=== PATIENT | female | born 1970 | race Caucasian/White ===

== ENCOUNTER 2025-02-18 16:45 | Emergency (ER) | payer SELFPAY ==
--- OUTSIDE RECORDS SUMMARY | 2014-02-14 12:09 | XMS_ITS | Continuity of Care Document ---
Author Organization [employer] [facility] [employer] Address [address] [place] [address] Phone Care Team Providers Care Instrumentation And Controls Technician Name Role Phone Anh Heredia Unavailable Unavailabl e Medications Medication Instructions Dosage Effective Dates (start - stop) Status Comments Claritin 10 mg tablet take 1 tablet (10M G) by oral route every day 10 MG - Active Prozac 40 mg capsule take 1 capsule (40M G) by oral route every day in the morning - Active [place] 5 mg-325 mg tablet take 1 tablet by oral route every 6 hours as needed for pain - Active Prozac 20 mg capsule take 1 capsule (20M G) by oral route every day in the morning 20 MG - Active Procedures Procedure Date OFFICE/OUTPATIENT VISIT, EST OFFICE/OUTPATIENT VISIT, EST OFFICE/OUTPATIENT VISIT, EST Limit Oral Eval-prob Focused Extraction, Erupted Tooth Or Exposed Zuly t (Elevati Extraction, Erupted Tooth Or Exposed Zuly t (Elevati Intraoral Periapical First [place] 13 OFFICE/OUTPATIENT VISIT, [facility] Advance Directives Directive Yes / No Effective Date File Name No Information Encounters Encounter Description Practice Location Reason(s) For Visit Diagnoses Date Provider Providers Copied on Encounter [facility] [employer], [address], [place], [place], [address], [place] tel:[phone] [facility] No Information 0-201 4 [address]eb[address] Anh[address] [place], [address], [place]. tel:[phone] OFFICE/OUTPAT IENT VISIT, [facility], [address], [place], [place], [address], [place] tel:[phone] [facility] mri results (chief complaint) more (chief complaint) Renal massHepatitis C 4 Bebout Anh. [address] [place], [address], [place]. tel:[phone] [facility], [address], [place], [place], [address], [place] tel:[phone] [facility] No Information 4 Bebout Anh. [address] [place], [address], [place]. tel:[phone] OFFICE/OUTPAT IENT VISIT, [facility], [address], [place], [place], [address], [place] tel:[phone] [facility] mri results of abd (chief complaint) Renal Insufficiency, AcuteRight upper quadrant abdominal pain 4 [address]ebout Anh[address] [place], [address], [place]. tel:[phone] [facility], [address], [place], [place], [address], [place] tel:[phone] [facility] Kidney lesion Sep-06 10- 4 Bebout Anh. [address] [place], [address], [place]. tel:[phone] OFFICE/OUTPAT IENT VISIT, [facility], [address], [place], [place], [address], [place] tel:[phone] [facility] establish to clinic (chief complaint) Acute abdominal pain in left upper quadrantOther acute painAnxiety and depression 4 Asha Kamara. [address] [place], [address], [place]. tel:[phone] [facility], [address], [place], [place], [address], [place] tel:[phone] [facility] Dental examination 3 Toby Huertas. [address], [place], [place], [address], [place]. tel:[phone] Referring Provider: Aleksandar Vitale, [address], [place], [address] . tel:[phone] OFFICE/OUTPAT IENT VISIT, [facility], [address], [place], [place], [address], [place] tel:[phone] [facility] No Information 0 No Information Family History Family Member Type Diagnosis Age At Onset Mother Problem (finding) Diabetes mellitus Mother Problem (finding) hypertension Father Problem (finding) pulmonary emphysema Mother Problem (finding) Thyroid disorder Father Problem (finding) coronary arterioscleros is Mother Problem (finding) osteoarthritis Payers Payer name Insurance type Covered republican ID Authoriza tion(s) No Information Social History Type Description Quantity Date Captured Comments Sex Female Smoking Status No Information Chief Complaint And Reason For Visit No Information Reason For Referral Reason For Referral No Information Plan Of Treatment Date Type Action Status Referral Ordered: [facility] (related to Right upper quadrant abdominal pain) ordered Referral Referred To: [facility] Ordered: Referral: [facility]. Consult. ordered Referral Ordered: MRI PELVIS W/O & W/DYE ordered Referral Ordered: US EXAM, ABDOM, COMPLETE ordered History Of Present Illness Encounter Date Complaint History Of Prese nt Illness more mri results Here for mri res ults. does c/o cold s/s. rates pain 6.5/10, LLQ and right lower rib cage area mri results of abd establish to clinic c/o abd swel ling with sharp LUQ stabbing pain. pain is constant. food aggravates it,not eating calms it. has been going on since may. denies any problems with bowel or bladder. states upper stomach firm with increased gas. taking otc gas relief. pt is gluten intolerant Functional Status Date Functional Assessmen t No Information Instructions Date Instruction Additional Infor mation No Information Assessments Type Assessment Date No Information Patient Care Teams Name Effective Dates (start - stop) Status Members No Information
--- OUTSIDE RECORDS SUMMARY | 2014-02-14 12:09 | XMS_ITS | Continuity of Care Document ---
Author Organization [employer] Address [address] [place] [address] Phone Care Team Providers Care Model Dresser Name Role Phone Anh Heredia Unavailable Unavailabl e Medications Medication Instructions Dosage Effective Dates (start - stop) Status Comments [place] 5 mg-325 mg tablet take 1 tablet by oral route every 6 hours as needed for pain - Active Prozac 40 mg capsule take 1 capsule (40M G) by oral route every day in the morning - Active Claritin 10 mg tablet take 1 tablet (10M G) by oral route every day 10 MG - Active Prozac 20 mg capsule take 1 capsule (20M G) by oral route every day in the morning 20 MG - Active Procedures Procedure Date OFFICE/OUTPATIENT VISIT, EST OFFICE/OUTPATIENT VISIT, EST OFFICE/OUTPATIENT VISIT, EST Limit Oral Eval-prob Focused Extraction, Erupted Tooth Or Exposed Zuly t (Elevati Extraction, Erupted Tooth Or Exposed Zuly t (Elevati Intraoral Periapical First [place] 13 OFFICE/OUTPATIENT VISIT, [facility] Advance Directives Directive Yes / No Effective Date File Name No Information Encounters Encounter Description Practice Location Reason(s) For Visit Diagnoses Date Provider Providers Copied on Encounter [facility] [employer], [address], [place], [place], [address], [place] tel:[phone] [facility] No Information 0-201 4 Bebout Anh. [address] [place], [address], [place]. tel:[phone] OFFICE/OUTPAT IENT VISIT, [facility], [address], [place], [place], [address], [place] tel:[phone] [facility] mri results (chief complaint) more (chief complaint) Renal massHepatitis C 4 Bebout Anh. [address] [place], [address], [place]. tel:[phone] [facility], [address], [place], [place], [address], [place] tel:[phone] [facility] No Information 4 Bebout Anh. [address] [place], [address], [place]. tel:[phone] OFFICE/OUTPAT IENT VISIT, [facility], [address], [place], [place], [address], [place] tel:[phone] [facility] mri results of abd (chief complaint) Renal Insufficiency, AcuteRight upper quadrant abdominal pain 4 Bebout Anh. [address] [place], [address], [place]. tel:[phone] [facility], [address], [place], [place], [address], [place] tel:[phone] [facility] Kidney lesion Sep-06 10- 4 Bebout Anh. [address] [place], [address], [place]. tel:[phone] OFFICE/OUTPAT IENT VISIT, [facility], [address], [place], [place], [address], [place] tel:[phone] [facility] establish to clinic (chief complaint) Acute abdominal pain in left upper quadrantOther acute painAnxiety and depression 4 Asha Kamara. [address] [place], [address], [place]. tel:[phone] [facility], [address], [place], [place], [address], [place] tel:[phone] [facility] Dental examination 3 Toby Huertas. [address], [place], [place], [address], [place]. tel:[phone] Referring Provider: Aleksandar Vitale, [address], [place], [address] . tel:[phone] OFFICE/OUTPAT IENT VISIT, [facility], [address], [place], [place], [address], [place] tel:[phone] [facility] No Information 0 No Information Family History Family Member Type Diagnosis Age At Onset Mother Problem (finding) Diabetes mellitus Mother Problem (finding) hypertension Father Problem (finding) pulmonary emphysema Mother Problem (finding) Thyroid disorder Father Problem (finding) coronary arterioscleros is Mother Problem (finding) osteoarthritis Payers Payer name Insurance type Covered constitution party ID Authoriza tion(s) No Information Social History Type Description Quantity Date Captured Comments Sex Female Smoking Status No Information Chief Complaint And Reason For Visit No Information Reason For Referral Reason For Referral No Information Plan Of Treatment Date Type Action Status Referral Ordered: [facility] (related to Right upper quadrant abdominal pain) ordered Referral Referred To: [facility] Ordered: Referral: [facility]. Consult. ordered Referral Ordered: MRI PELVIS W/O & W/DYE ordered Referral Ordered: US EXAM, ABDOM, COMPLETE ordered History Of Present Illness Encounter Date Complaint History Of Prese nt Illness mri results Here for mri res ults. does c/o cold s/s. rates pain 6.5/10, LLQ and right lower rib cage area more mri results of abd establish to clinic [...]
--- NOTE | ~2025-02-18 | CT_ITS ---
EXAMINATION: CT abdomen pelvis wo con DATE: 02/18/2025 19:54 INDICATION: Left flank pain. Left lower quadrant abdominal pain. TECHNIQUE: Computed tomography (CT) of the abdomen and pelvis was performed without intravenous contrast. Automated exposure control and iterative reconstruction technique were employed. The dose-length product was 274.07 mGy-cm. COMPARISON: None. FINDINGS: The visualized portions of the lung bases demonstrate mild atelectasis. No pleural effusion. The heart size is normal. No pericardial effusion. The liver and spleen are normal. There are changes of cholecystotomy. Calcifications in the pancreas may be vascular or secondary to chronic pancreat itis. The adrenal glands and kidneys are normal. There is no urolithiasis. There are no dilated loops of bowel. The appendix is normal. There are no pathologically enlarged lymph nodes. There is no free intraperitoneal fluid. There is mild thoracic and lumbar spondylosis. IMPRESSION: 1. No urolithiasis. Reviewed, dictated and finalized at location K. IMPRESSION: 1. No urolithiasis.
--- OUTSIDE RECORDS SUMMARY | 2025-02-18 16:48 | XMS_ITS | Encounter Summary ---
Author Organization [facility] Address [address] [place] [address] Care Team Providers Care Roofing Supervisor Name Role Phone Jennifer Wylie APRN Primary Care Provider [phone] Reason for Visit * Reason Onset Date Comments Medication Refill 10/29/2023 Encounter Details Date Type Department Care Team (Late st Contact Info) Description 10/29/2023 Pt Refill [facility] [address] [place] [address] Jennifer Wylie APRN [address] [place] [address] Medication Refill Social History Tobacco Use Types Packs/Day Years Used Date Smoking Tobacco: Every Day Cigarettes 1 38.7 Started: 06/07/1983; Last attempted to quit: 03/05/2022 Smokeless Tobacco: Never Alcohol Use Standard Drinks/Week Comments Never 0 (1 standard drink = 0.6 oz pur e alcohol) PHQ-2 Answer Date Recorded PHQ-2 Score 2 09/29/2023 Housing Stability Vital Sign Answer Viktor e Recorded In the last 12 months, was t here a time when you were not able to pay the mortgage or rent on time? No 02/03/2023 In the last 12 months, how many places have you lived? 1 02/03/2023 In the last 12 months, was t here a time when you did not have a steady place to sleep or slept in a long term (including now)? 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 Answer Date of Assessment Author No 03/29/2021 9:00 AM CDT Henrry Mathews RN * Are you blind or do you have serious difficulty seeing, even when wearing glasses? Answer Date of Assessment Author No 03/29/2021 9:00 AM KEVINT Henrry Mathews RN * Do you have serious difficulty walking or climbing stairs? Answer Date of Assessment Author No 03/29/2021 9:00 AM CDT Henrry Mathews RN * Do you have difficulty dressing or bathing? Answer Date of Assessment Author No 03/29/2021 9:00 AM CDT Henrry Mathews RN * Because of a physical, mental, or emotional condition, do you have difficulty doing errands alone such as visiting a doctor's office or shopping? Answer Date of Assessment Author No 03/29/2021 9:00 AM CDT Henrry Mathews RN documented as of this encounter Mental Status * Because of a physical, mental, or emotional condition, do you have serious difficulty concentrating, remembering, or making decisions? Answer Entry Date Author No 03/29/2021 9:00 AM Henrry Lynch RN documented in this encounter Miscellaneous Notes * Telephone Encounter - Yessenia Kramer, [facility] - 10/29/2023 4:37 PM CDT Last Seen-09/29/23 Pending Appt-12/22/23 Zach #-: [id number] Last Fill-10/03/23. Due to fill Wednesday11/02/23 Zach Reviewed and Appropriate documented in this encounter Plan of Treatment Upcoming Encounters Date Type Department Care Team (Late st Contact Info) Description 02/28/2025 7:30 AM CDT Office Visit [facility] [address] [facility] [address] [place] [address] Jennifer Wylie APRN [address] [facility] [address] [place] [address] 02/28/2025 9:40 AM CDT Appointment [facility] [address] [place] [address] Lennox Weston MD [address] [place] [address] documented as of this encounter Visit Diagnoses Diagnosis Primary osteoarthritis of both knees Primary localized osteoarthrosis, lower leg documented in this encounter Additional Health Concerns Assessment Noted Time PHQ-9 Depression Total Score: 7 09/29/19 7:52 AM CDT documented as of this encounter Care Teams Roofing Supervisor Relationship Specialty Start Date End Date Jennifer Wylie APRN [address] [facility] [address] [place] [address] PCP - General Nurse Practitioner-Family 02/13/19 documented as of this encounter
--- OUTSIDE RECORDS SUMMARY | 2025-02-18 16:48 | XMS_ITS | Encounter Summary ---
Author Organization [facility] Address [address] [place] [address] Care Team Providers Care Leather Goods Ii Assembler Name Role Phone Jennifer Wylie APRN Primary Care Provider [phone] Reason for Visit * Reason Onset Date Comments Medication Refill 03/25/2021 Encounter Details Date Type Department Care Team (Late st Contact Info) Description 03/25/2021 Pt Refill [facility] [address] [place] [phone] Jennifer Wylie APRN [address] [place] [address] Medication Refill Social History Tobacco Use Types Packs/Day Years Used Date Smoking Tobacco: Every Day Cigarettes 0.5 41.7 Started: 06/07/1983 Smokeless Tobacco: Never Comments:she knows the risk Alcohol Use Standard Drinks/Week Comments Never 0 (1 standard drink = 0.6 oz pur e alcohol) PHQ-2 Answer Date Recorded PHQ-2 Score 0 12/09/2020 Alcohol Use Answer Date Recorded Frequency of Alcohol Consumption Not on file 04/15/2020 Average Number of Drinks Not on file 020 Frequency of Binge Drinking Not on file 02/2020 Alcohol Use Status Never 04/15/2020 Average alcohol consumption Not on file 02/2020 Comments No Sex and Gender Information Value Date Recorded Sex Assigned at Female 12/14/2019 1:45 PM CDT 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 No / Unsure 03/28/2021 3:00 PM CDT documented as of this encounter Plan of Treatment Upcoming Encounters Date Type Department Care Team (Late st Contact Info) Description 02/28/2025 7:30 AM CDT Office Visit [facility] [address] [place] [phone] Jennifer Wylie APRN [address] [place] [address] 02/28/2025 9:40 AM CDT Appointment [facility] [address] [place] [phone] Lennox Weston MD [address] [place] [address] documented as of this encounter Visit Diagnoses Diagnosis Essential hypertension Unspecified essential hypertension documented in this encounter Additional Health Concerns Infection Onset Date Last Indicated Resolved Time COVID-19 Rule-Out 03/28/2021 03/28/2021 03/28/2021 5:25 PM CDT COVID-19 Rule-Out 07/09/2021 07/28/2021 07/23/2021 2:35 AM CONCRETE MIXING TRUCK DRIVER COVID-19 Rule-Out 07/23/2021 07/23/2021 07/28/2021 1:47 PM CONCRETE MIXING TRUCK DRIVER COVID-19 Rule-Out 07/28/2021 07/28/2021 07/28/2021 7:27 PM CONCRETE MIXING TRUCK DRIVER COVID-19 Rule-Out 08/14/2021 08/14/2021 08/14/2021 1:31 PM CONCRETE MIXING TRUCK DRIVER COVID-19 Rule-Out 08/14/2021 08/22/2021 09/05/2021 2:34 AM CDT Assessment Noted Time PHQ-9 Depression Total Score: 1 04/05/20 10:15 AM CDT documented as of this encounter Care Teams Leather Goods Ii Assembler Relationship Specialty Start Date End Date Jennifer Wylie APRN [address] [facility] [address] [place] [address] PCP - General Nurse Practitioner-Family 02/13/19 documented as of this encounter
--- OUTSIDE RECORDS SUMMARY | 2025-02-18 16:48 | XMS_ITS | Encounter Summary ---
Author Organization [facility] Address [address] [place] [address] Care Team Providers Care Psychology Instructor Name Role Phone Jennifer Wylie APRN Primary Care Provider [phone] Reason for Visit * Reason Onset Date Comments Medication Refill 03/11/2022 Encounter Details Date Type Department Care Team (Late st Contact Info) Description 03/11/2022 Pt Refill [facility] [address] [place] [phone] Jennifer Wylie APRN [address] [place] [address] Medication Refill Social History Tobacco Use Types Packs/Day Years Used Date Smoking Tobacco: Former Cigarettes 1 38.7 0 06/07/1983 - 03/05/2022 Smokeless Tobacco: Never Comments:she knows the risk Alcohol Use Standard Drinks/Week Comments Never 0 (1 standard drink = 0.6 oz pur e alcohol) PHQ-2 Answer Date Recorded PHQ-2 Score 0 03/09/2022 Alcohol Use Answer Date Recorded Frequency of Alcohol Consumption Not on file 04/15/2020 Average Number of Drinks Not on file 020 Frequency of Binge Drinking Not on file 02/2020 Alcohol Use Status Never 04/15/2020 Average alcohol consumption Not on file 02/2020 Comments No Sex and Gender Information Value Date Recorded Sex Assigned at Female 12/14/2019 1:45 PM CDT 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 No / Unsure 03/10/2022 1:37 PM CDT documented as of this encounter [...] Entry Date Author No 03/29/2021 9:00 AM CDT Henrry Mathews RN documented in this encounter Plan of Treatment Upcoming Encounters Date Type Department Care Team (Late st Contact Info) Description 02/28/2025 7:30 AM CDT Office Visit [facility] [address] [place] [address] Jennifer Wylie APRN [address] [place] [address] 02/28/2025 9:40 AM CDT Appointment [facility] [address] [facility] [place] [place] [address] Lennox Weston MD [address] [place] [address] documented as of this encounter Visit Diagnoses Not on filedocumented in this encounter Additional Health Concerns Assessment Noted Time PHQ-9 Depression Total Score: 0 03/09/20 22 5:06 PM CDT documented as of this encounter Care Teams Psychology Instructor Relationship Specialty Start Date End Date Jennifer Wylie APRN [address] [facility] [address] [place] [address] PCP - General Nurse Practitioner-Family 02/13/19 documented as of this encounter
--- OUTSIDE RECORDS SUMMARY | 2025-02-18 16:48 | XMS_ITS | Encounter Summary ---
Author Organization [facility] Address [address] [place] [address] Care Team Providers Care Purchaser Name Role Phone Jennifer Wylie APRN Primary Care Provider [phone] Reason for Visit * Reason Onset Date Comments Medication Refill 04/14/2021 Encounter Details Date Type Department Care Team (Late st Contact Info) Description 04/14/2021 Pt Refill [facility] [address] [place] [phone] Jennifer Wylie APRN [address] [place] [address] Medication Refill Social History Tobacco Use Types Packs/Day Years Used Date Smoking Tobacco: Every Day Cigarettes 1 41.7 Started: 06/07/1983 Smokeless Tobacco: Never Comments:she [...] PM CDT 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 No / Unsure 04/09/2021 8:38 AM CDT documented as of this encounter Functional [...] Description 02/28/2025 7:30 AM CDT Office Visit [facility] [address] [place] [address] Jennifer Wylie APRN [address] [place] [address] 02/28/2025 9:40 AM CDT Appointment [facility] [address] [facility] [place] [address] Lennox Weston MD [address] [place] [address] documented as of this encounter Visit Diagnoses Diagnosis Anxiety Anxiety state, unspecified documented in this encounter Additional Health Concerns Infection Onset Date Last Indicated Resolved Time COVID-19 Rule-Out 07/09/2021 07/28/2021 07/23/2021 2:35 AM ALPACA FARMER COVID-19 Rule-Out 07/23/2021 07/23/2021 07/28/2021 1:47 PM ALPACA FARMER COVID-19 Rule-Out 07/28/2021 07/28/2021 07/28/2021 7:27 PM ALPACA FARMER COVID-19 Rule-Out 08/14/2021 08/14/2021 08/14/2021 1:31 PM ALPACA FARMER COVID-19 Rule-Out 08/14/2021 08/22/2021 09/05/2021 2:34 AM CDT Assessment Noted Time PHQ-9 Depression Total Score: 1 04/05/20 19 10:15 AM CDT documented as of this encounter Care Teams Purchaser Relationship Specialty Start Date End Date Jennifer Wylie APRN [address] [facility] [address] [place] [address] PCP - General Nurse Practitioner-Family 02/13/19 documented as of this encounter
--- OUTSIDE RECORDS SUMMARY | 2025-02-18 16:48 | XMS_ITS | Encounter Summary ---
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 Gender Identity Female 12/14/2019 1:45 PM CDT [...] Description 02/28/2025 7:30 AM CDT Office Visit [facility] [address] [place] [address] Jennifer Wylie APRN [address] [place] [address] 02/28/2025 9:40 AM CDT Appointment [facility] [address] [place] [facility] [place] [address] Lennox Weston MD [address] [place] [address] documented as of this encounter Visit Diagnoses Diagnosis Muscle spasm Spasm of muscle documented in this encounter Additional Health Concerns Infection Onset Date Last Indicated Resolved Time COVID-19 Rule-Out 07/09/2021 07/28/2021 07/23/2021 2:35 AM HYDRO EXCAVATION OPERATOR COVID-19 Rule-Out 07/23/2021 07/23/2021 07/28/2021 1:47 PM HYDRO EXCAVATION OPERATOR COVID-19 Rule-Out 07/28/2021 07/28/2021 07/28/2021 7:27 PM HYDRO EXCAVATION OPERATOR COVID-19 Rule-Out 08/14/2021 08/14/2021 08/14/2021 1:31 PM HYDRO EXCAVATION OPERATOR COVID-19 Rule-Out 08/14/2021 08/22/2021 09/05/2021 2:34 AM CDT Assessment Noted Time PHQ-9 Depression Total Score: 1 04/05/20 19 10:15 AM CDT documented as of this encounter Care Teams Dial Lathe Operator Relationship Specialty Start Date End Date Jennifer Wylie APRN [address] [facility] [address] [place] [address] PCP - General Nurse Practitioner-Family 02/13/19 documented as of this encounter
--- OUTSIDE RECORDS SUMMARY | 2025-02-18 16:48 | XMS_ITS | Encounter Summary ---
Author Organization [facility] Address [address] [place] [address] Care Team Providers Care Loan Underwriter Name Role Phone Jennifer Wylie APRN Primary Care Provider [phone] Reason for Visit * Reason Onset Date Comments Medication Refill 07/05/2023 Encounter Details Date Type Department Care Team (Late st Contact Info) Description 07/05/2023 Pt Refill [facility] [address] [place] [phone] Jennifer Wylie APRN [address] [place] [address] Medication Refill Social History Tobacco Use Types Packs/Day Years Used Date Smoking Tobacco: Every Day Cigarettes 1 38.7 Started: 06/07/1983; Last attempted to quit: 03/05/2022 Smokeless Tobacco: Never Alcohol Use Standard Drinks/Week Comments Never 0 (1 standard drink = 0.6 oz pur e alcohol) PHQ-2 Answer Date Recorded PHQ-2 Score 0 04/09/2022 Housing Stability Vital Sign Answer Viktor e [...] PM CDT Legal Sex Female 3:05 AM DIRECTOR INTEGRATED Gender Identity Female 12/14/2019 1:45 PM CDT [...] of Assessment Author No 03/29/2021 9:00 AM CDHenrry Kingsley RN * Do you have serious difficulty [...] of Assessment Author No 03/29/2021 9:00 AM Henrry Lynch RN documented as of this encounter Mental Status * Because of a physical, mental, or emotional condition, do you have serious difficulty concentrating, remembering, or making decisions? Answer Entry Date Author No 03/29/2021 9:00 AM Henrry Lynch RN documented in this encounter Miscellaneous Notes * Telephone Encounter - Joseline Ramos CMA - 07/05/2023 11:37 AM CST LAST OV:02/03/23 Pending appt: 07/22/23 RAQUEL REVIEWED REQUEST # : [id number] LAST FILL:06/05/23 DUE ON: 07/05/23 CTOR INTEGRATED documented in this encounter Plan of Treatment Upcoming Encounters Date Type Department Care Team (Late st Contact Info) Description 02/28/2025 7:30 AM CDT Office Visit [facility] [address] [facility] [address] [place] [address] Jennifer Wylie APRN [address] [facility] [address] [place] [address] 02/28/2025 9:40 AM CDT Appointment [facility] Pain [facility] [address] [place] [address] Lennox Weston MD [address] [place] [address] documented as of this encounter Visit Diagnoses Diagnosis Primary osteoarthritis of both knees Primary localized osteoarthrosis, lower leg documented in this encounter Additional Health Concerns Assessment Noted Time PHQ-9 Depression Total Score: 0 03/09/20 22 5:06 PM CDT documented as of this encounter Care Teams Loan Underwriter Relationship Specialty Start Date End Date Jennifer Wylie APRN [address] [address] PCP - General Nurse Practitioner-Family 02/13/19 documented as of this encounter
--- OUTSIDE RECORDS SUMMARY | 2025-02-18 16:48 | XMS_ITS | Encounter Summary ---
Author Organization [facility] Address [address] [place] [address] Care Team Providers Care Manuscript Reader Name Role Phone Jennifer Wylie APRN Primary Care Provider [phone] Reason for Visit * Reason Onset Date Comments Medication Refill 01/01/2023 Encounter Details Date Type Department Care Team (Late st Contact Info) Description 01/01/2023 Pt Refill [facility] [address] [place] [phone] Jennifer Wylie APRN [address] [place] [address] Medication Refill Social History Tobacco Use Types Packs/Day Years Used Date Smoking Tobacco: Every Day Cigarettes 1 38.7 Started: 06/07/1983; Last attempted to quit: 03/05/2022 Smokeless Tobacco: Never Comments:she knows the risk Alcohol Use Standard Drinks/Week Comments Never 0 (1 standard drink = 0.6 oz pur e alcohol) PHQ-2 Answer Date Recorded PHQ-2 Score 0 04/09/2022 Alcohol Use Answer Date Recorded Frequency of Alcohol Consumption Not on file 04/15/2020 Average Number of Drinks Not on file 020 Frequency of Binge Drinking Not on file 02/2020 Alcohol Use Status Never 04/15/2020 Average alcohol consumption Not on file 02/2020 Comments No Sex and Gender Information Value Date Recorded Sex Assigned at Female 12/14/2019 1:45 PM CDT Legal Sex Female 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 No / Unsure 12/18/2022 9:09 AM CDT documented as of this encounter [...] Author No 03/29/2021 9:00 AM CDT Henrry Matehws RN documented in this encounter Miscellaneous Notes * Telephone Encounter - Mary Eldridge RMA - 01/01/2023 11:22 AM CDT 1 month sent to pharmcy pt needs an appt documented in this encounter Plan of Treatment Upcoming Encounters Date Type Department Care Team (Late st Contact Info) Description 02/28/2025 7:30 AM CDT Office Visit [place] [id number] [facility] [address] [place] [address] Jennifer Wylie APRN [address] [place] [address] 02/28/2025 9:[address] [facility] [address] [place] [address] Lennox Weston MD [address] [place] [address] documented as of this encounter Visit Diagnoses Diagnosis Essential hypertension Unspecified essential hypertension documented in this encounter Additional Health Concerns Assessment Noted Time PHQ-9 Depression Total Score: 0 03/09/20 22 5:06 PM CDT documented as of this encounter Care Teams Manuscript Reader Relationship Specialty Start Date End Date Jennifer Wylie APRN [address] [place] [address] PCP - General Nurse Practitioner-Family 02/13/19 documented as of this encounter
--- OUTSIDE RECORDS SUMMARY | 2025-02-18 16:48 | XMS_ITS | Encounter Summary ---
Author Organization [facility] Address [address] [place] [address] Care Team Providers Care Staff Forester Name Role Phone Jennifer Wylie APRN Primary Care Provider [phone] Reason for Visit * Reason Onset Date Comments Medication Refill 01/17/2021 Encounter Details Date Type Department Care Team (Late st Contact Info) Description 01/17/2021 Pt Refill [facility] [address] [place] [phone] Jennifer Wylie APRN [address] [place] [address] Medication Refill Social History Tobacco [...] PM CDT Legal Sex Female 3:05 AM PSYCHOLOGY DEPARTMENT CHAIR Gender Identity Female 12/14/2019 1:45 PM CDT Sexual Orientation Straight 12/14/2019 1: 45 PM CDT COVID-19 Exposure Response Date Recorded In the last month, have you been in contact with someone who was confirmed or suspected to have Coronavirus / COVID-19? No / Unsure 01/09/2021 11:16 AM CDT documented as of this encounter Plan of Treatment Upcoming Encounters Date Type Department Care Team (Late st Contact Info) Description 02/28/2025 7:30 AM CDT Office Visit [facility] [address] [place] [phone] Jennifer Wylie APRN [address] [place] [address] 02/28/2025 9:40 AM CDT Appointment [facility] [address] [place] [phone] Lennox Weston MD [address] [place] [address] documented as of this encounter Visit Diagnoses Diagnosis Essential hypertension Unspecified essential hypertension documented in this encounter Additional Health Concerns Infection Onset Date Last Indicated Resolved Time COVID-19 Rule-Out 03/28/2021 03/28/2021 03/28/2021 5:25 PM CDT COVID-19 Rule-Out 07/09/2021 07/28/2021 07/23/2021 2:35 AM PSYCHOLOGY DEPARTMENT CHAIR COVID-19 Rule-Out 07/23/2021 07/23/2021 07/28/2021 1:47 PM PSYCHOLOGY DEPARTMENT CHAIR COVID-19 Rule-Out 07/28/2021 07/28/2021 07/28/2021 7:27 PM PSYCHOLOGY DEPARTMENT CHAIR COVID-19 Rule-Out 08/14/2021 08/14/2021 08/14/2021 1:31 PM PSYCHOLOGY DEPARTMENT CHAIR COVID-19 Rule-Out 08/14/2021 08/22/2021 09/05/2021 2:34 AM CDT Assessment Noted Time PHQ-9 Depression Total Score: 1 04/05/20 10:15 AM CDT documented as of this encounter Care Teams Staff Forester Relationship Specialty Start Date End Date Jennifer Wylie APRN [address] [facility] [address] [place] [address] PCP - General Nurse Practitioner-Family 02/13/19 documented as of this encounter
--- OUTSIDE RECORDS SUMMARY | 2025-02-18 16:48 | XMS_ITS | Encounter Summary ---
Author Organization 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 [address] [place] [phone] Jennifer Wylie APRN [address] [place] [address] 02/28/2025 9:[address] [facility] [address] [place] [phone] Lennox Weston MD [address] [place] [address] documented as of this encounter Visit Diagnoses Diagnosis Essential hypertension Unspecified essential hypertension documented in this encounter Additional Health Concerns Infection Onset Date Last Indicated Resolved Time COVID-19 Rule-Out 03/28/2021 03/28/2021 03/28/2021 5:25 PM CDT COVID-19 Rule-Out 07/09/2021 07/28/2021 07/23/2021 2:35 AM PLANT PRODUCTION WORKER COVID-19 Rule-Out 07/23/2021 07/23/2021 07/28/2021 1:47 PM PLANT PRODUCTION WORKER COVID-19 Rule-Out 07/28/2021 07/28/2021 07/28/2021 7:27 PM PLANT PRODUCTION WORKER COVID-19 Rule-Out 08/14/2021 08/14/2021 08/14/2021 1:31 PM PLANT PRODUCTION WORKER COVID-19 Rule-Out 08/14/2021 08/22/2021 09/05/2021 2:34 AM CDT Assessment Noted Time PHQ-9 Depression Total Score: 1 04/05/20 10:15 AM CDT documented as of this encounter Care Teams Electrical Development Engineer Relationship Specialty Start Date End Date Jennifer Wylie APRN [address] [facility] [address] [place] [address] PCP - General Nurse Practitioner-Family 02/13/19 documented as of this encounter
--- OUTSIDE RECORDS SUMMARY | 2025-02-18 16:48 | XMS_ITS | Encounter Summary ---
Author Organization [facility] Address [address] [place] [address] Care Team Providers Care Physician/Internist Name Role Phone Jennifer Wylie APRN Primary Care Provider [phone] Reason for Visit * Reason Onset Date Comments Medication Refill 12/27/2020 Encounter Details Date Type Department Care Team (Late st Contact Info) Description 12/27/2020 Pt Refill [facility] [address] [place] [phone] Jennifer Wylie APRN [address] [place] [address] Medication Refill Social History Tobacco [...] PM CDT Legal Sex Female 3:05 AM 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 No / Unsure 12/09/2020 7:42 AM CDT documented as of this encounter Plan of Treatment Upcoming Encounters Date Type Department Care Team (Late st Contact Info) Description 02/28/2025 7:30 AM CDT Office Visit [facility] [address] [place] [phone] Jennifer Wylie COLD WORK OPERATOR [address] [place] [address] 02/28/2025 9:[address] [facility] [address] [place] [phone] Lennox Wesotn MD [address] [place] [address] documented as of this encounter Visit Diagnoses Diagnosis Anxiety Anxiety state, unspecified documented in this encounter Additional Health Concerns Infection Onset Date Last Indicated Resolved Time COVID-19 Rule-Out 03/28/2021 03/28/2021 03/28/2021 5:25 PM CDT COVID-19 Rule-Out 07/09/2021 07/28/2021 07/23/2021 2:35 AM LOCKER PLANT ATTENDANT COVID-19 Rule-Out 07/23/2021 07/23/2021 07/28/2021 1:47 PM LOCKER PLANT ATTENDANT COVID-19 Rule-Out 07/28/2021 07/28/2021 07/28/2021 7:27 PM LOCKER PLANT ATTENDANT COVID-19 Rule-Out 08/14/2021 08/14/2021 08/14/2021 1:31 PM LOCKER PLANT ATTENDANT COVID-19 Rule-Out 08/14/2021 08/22/2021 09/05/2021 2:34 AM CDT Assessment Noted Time PHQ-9 Depression Total Score: 1 04/05/20 10:15 AM CDT documented as of this encounter Care Teams Physician/Internist Relationship Specialty Start Date End Date Jennifer Wylie APRN [address] [facility] [address] [place] [address] PCP - General Nurse Practitioner-Family 02/13/19 documented as of this encounter
--- OUTSIDE RECORDS SUMMARY | 2025-02-18 16:48 | XMS_ITS | Encounter Summary ---
Author Organization [facility] Address [address] [place] [address] Care Team Providers Care Commercial Technician Name Role Phone Jennifer Wylie APRN Primary Care Provider [phone] Reason for Visit * Reason Onset Date Comments Medication Refill 11/07/2021 Encounter Details Date Type Department Care Team (Late st Contact Info) Description 11/07/2021 Pt Refill [facility] [address] [place] [phone] Jennifer Wylie APRN [address] [place] [address] Medication Refill Social History Tobacco Use Types Packs/Day Years Used Date Smoking Tobacco: Every Day Cigarettes 1 41.7 Started: 06/07/1983 Smokeless Tobacco: Never Comments:she knows the risk Alcohol Use Standard Drinks/Week Comments Never 0 (1 standard drink = 0.6 oz pur e alcohol) PHQ-2 Answer Date Recorded PHQ-2 Score 1 10/22/2021 Alcohol Use Answer Date Recorded Frequency of Alcohol Consumption Not on file 04/15/2020 Average Number of Drinks Not on file 020 Frequency of Binge Drinking Not on file 02/2020 Alcohol Use Status Never 04/15/2020 Average alcohol consumption Not on file 02/2020 Comments No Sex and Gender Information Value Date Recorded Sex Assigned at Female 12/14/2019 1:45 PM CDT Legal Sex Female 3:05 AM 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 * Telephone Encounter - Joseline Ramos CMA - 11/24/2021 11:45 AM CDT PA Submitted using Cover my meds : [id number] BIN [id number] PCN IS grp [id number] Id [id number] Response: This request cannot be processed due to the member's coverage has terminated. Resubmit using active member ID information. * Telephone Encounter - Mary Eldridge - 11/24/2021 11:22 AM CDT [facility]mg [facility] documented in this encounter Plan of Treatment Upcoming Encounters Date Type Department Care Team (Late st Contact Info) Description 02/28/2025 7:30 AM CDT Office Visit [facility] [address] [place] [phone] Jennifer Wylie APRN [address] [place] [address] 02/28/2025 9:40 AM CDT Appointment [facility] Pain [facility] [address] [place] [address] Lennox Weston MD [address] [place] [address] documented as of this encounter Visit Diagnoses Diagnosis Non-intractable vomiting with nausea, unspecified vomiting type documented in this encounter Additional Health Concerns Assessment Noted Time PHQ-9 Depression Total Score: 1 04/05/20 19 10:15 AM CDT documented as of this encounter Care Teams Commercial Technician Relationship Specialty Start Date End Date Jennifer Wylie APRN [address] [place] [address] PCP - General Nurse Practitioner-Family 02/13/19 documented as of this encounter
--- OUTSIDE RECORDS SUMMARY | 2025-02-18 16:48 | XMS_ITS | Encounter Summary ---
Author Organization [facility] Address [address] [place] [address] Care Team Providers Care Heel Edge Inker Machine Name Role Phone Jennifer Wylie APRN Primary Care Provider [phone] Reason for Visit * Reason Onset Date Comments Medication Refill 01/28/2022 Encounter Details Date Type Department Care Team (Late st Contact Info) Description 01/28/2022 Pt Refill [facility] [address] [place] [phone] Jennifer Wylie APRN [address] [place] [address] Medication Refill Social History Tobacco Use Types Packs/Day Years Used Date Smoking Tobacco: Every Day Cigarettes 1 41.7 Started: 06/07/1983 Smokeless Tobacco: Never Comments:she knows the risk Alcohol Use Standard Drinks/Week Comments Never 0 (1 standard drink = 0.6 oz pur e alcohol) PHQ-2 Answer Date Recorded PHQ-2 Score 1 01/06/2022 Alcohol Use Answer Date Recorded Frequency of Alcohol Consumption Not on file 04/15/2020 Average Number of Drinks Not on file 020 Frequency of Binge Drinking Not on file 02/2020 Alcohol Use Status Never 04/15/2020 Average alcohol consumption Not on file 02/2020 Comments No Sex and Gender Information Value Date Recorded Sex Assigned at Female 12/14/2019 1:45 PM CDT Legal Sex Female 3:05 AM STROKE PROGRAM COORDINATOR Gender Identity Female 12/14/2019 1:45 PM CDT Sexual Orientation Straight 12/14/2019 1: 45 PM CDT COVID-19 Exposure Response Date Recorded In the last 10 days, have yo u been in contact with someone who was confirmed or suspected to have Coronavirus/COVID-19? No / Unsure 01/18/2022 12:52 PM CDT documented as of this encounter [...] Description 02/28/2025 7:30 AM CDT Office Visit [facility] [address] [place] [address] Jennifer Wylie APRN [address] [place] [address] 02/28/2025 9:40 AM CDT Appointment [facility] [address] [place] [address] Lennox Weston MD [address] [place] [address] documented as of this encounter Visit Diagnoses Diagnosis Non-intractable vomiting with nausea, unspecified vomiting type documented in this encounter Additional Health Concerns Assessment Noted Time PHQ-9 Depression Total Score: 1 04/05/20 19 10:15 AM CDT documented as of this encounter Care Teams Heel Edge Inker Machine Relationship Specialty Start Date End Date Jennifer Wylie APRN [address] [facility] [address] [place] [address] PCP - General Nurse Practitioner-Family 02/13/19 documented as of this encounter
--- OUTSIDE RECORDS SUMMARY | 2025-02-18 16:48 | XMS_ITS | Encounter Summary ---
Author Organization [facility] Address [address] [place] [address] Care Team Providers Care Automated Teller Manager Name Role Phone Jennifer Wylie APRN Primary Care Provider [phone] Reason for Visit * Reason Onset Date Comments Medication Refill 08/01/2023 Encounter Details Date Type Department Care Team (Late st Contact Info) Description 08/01/2023 Pt Refill [facility] [address] [place] [phone] Jennifer Wylie APRN [address] [place] [address] Medication Refill Social History Tobacco [...] place to sleep or slept in a custodial (including now)? 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 Gender Identity Female 12/14/2019 1:45 PM CDT [...] Description 02/28/2025 7:30 AM CDT Office Visit [facility] [address] [place] [address] Jennifer Wylie, DRY HOUSE TENDER [address] [place] [address] 02/28/2025 9:40 AM CDT Appointment [facility] [address] [place] [address] Lennox Weston MD [address] [place] [address] documented as of this encounter Visit Diagnoses Diagnosis Chronic GERD documented in this encounter Additional Health Concerns Assessment Noted Time PHQ-9 Depression Total Score: 0 03/09/20 22 5:06 PM CDT documented as of this encounter Care Teams Automated Teller Manager Relationship Specialty Start Date End Date Jennifer Wylie APRN [address] [facility] [address] [place] [address] PCP - General Nurse Practitioner-Family 02/13/19 documented as of this encounter
--- OUTSIDE RECORDS SUMMARY | 2025-02-18 16:48 | XMS_ITS | Encounter Summary ---
Author Organization [facility] Address [address] [place] [address] Care Team Providers Care Tilting Saw Operator Name Role Phone Jennifer Wylie APRN Primary Care Provider [phone] Reason for Visit * Reason Onset Date Comments Medication Refill 09/14/2024 Encounter Details Date Type Department Care Team (Late st Contact Info) Description 09/14/2024 Pt Refill [facility] [address] [place] [phone] Jennifer Wylie APRN [address] [place] [address] Medication Refill Social History Tobacco Use Types Packs/Day Years Used Date Smoking Tobacco: Every Day Cigarettes 1 41.4 Started: 06/07/1983; Last attempted to quit: 03/05/2022 Smokeless Tobacco: Never Alcohol Use Standard Drinks/Week Comments Never 0 (1 standard drink = 0.6 oz pur e alcohol) [facility] Utilities Answer Date Recorded In the past 12 months has e electric, gas, oil, or water company threatened to shut off services in your home? No 07/12/2024 PHQ-2 Answer Date Recorded PHQ-2 Score 1 07/12/2024 Housing Stability Vital Sign Answer Viktor e Recorded In the last 12 months, was t here a time when you were not able to pay the mortgage or rent on time? No 02/16/2024 In the last 12 months, how many places have you lived? 1 02/16/2024 In the last 12 months, was t here a time when you did not have a steady place to sleep or slept in a longterm (including now)? No 02/16/2024 Housing Stability Vital Sign Answer Viktor e Recorded In the last 12 months, was t here a time when you were not able to pay the mortgage or rent on time? No 07/12/2024 Number of Times Moved in the Last Year Not on fi le 07/12/2024 At any time in the past 12 m [facility], were you homeless or living in a longterm (including now)? 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 MANAGER Gender Identity Female 12/14/2019 1:45 PM CDT [...] Description 02/28/2025 7:30 AM CDT Office Visit [facility] [address] [facility] [address] [place] [phone] Jennifer Wylie APRN 12[address] [facility] 60 [place] [address] 02/28/2025 9:40 AM CDT Appointment [facility] [address] [place] [address] Lennox Weston MD [address] [place] [address] documented as of this encounter Visit Diagnoses Diagnosis Type 2 diabetes mellitus without complication, without long-term current use of insulin (HCC) documented in this encounter Additional Health Concerns Assessment Noted Time PHQ-9 Depression Total Score: 7 09/29/19 24 7:52 AM CDT documented as of this encounter Care Teams Tilting Saw Operator Relationship Specialty Start Date End Date Jennifer Wylie APRN [address] [facility] [address] [place] [address] PCP - General Nurse Practitioner-Family 02/13/19 documented as of this encounter
--- OUTSIDE RECORDS SUMMARY | 2025-02-18 16:48 | XMS_ITS | Encounter Summary ---
Author Organization [facility] Address [address] [place] [address] Care Team Providers Care Burr Picker Name Role Phone Jennifer Wylie APRN Primary Care Provider [phone] Reason for Visit * Reason Onset Date Comments Medication Refill 08/09/2020 Encounter Details Date Type Department Care Team (Late st Contact Info) Description 08/09/2020 Pt Refill [facility] [address] [place] [phone] Jennifer Wylie APRN [address] [place] [address] Medication Refill Social History Tobacco Use Types Packs/Day Years Used Date Smoking Tobacco: Every Day Cigarettes 1 25 Smokeless Tobacco: Never Comments:she knows the risk Alcohol Use Standard Drinks/Week Comments Never 0 (1 standard drink = 0.6 oz pur e alcohol) PHQ-2 Answer Date Recorded PHQ-2 Score 0 07/31/2020 Alcohol Use Answer Date Recorded Frequency of Alcohol Consumption Not on file 04/15/2020 Average Number of Drinks Not on file 020 Frequency of Binge Drinking Not on file 02/2020 Alcohol Use Status Never 04/15/2020 Average alcohol consumption Not on file 02/2020 Comments No Sex and Gender Information Value Date Recorded Sex Assigned at Female 12/14/2019 1:45 PM CDT Legal Sex Female 3:05 AM DENTAL INSTRUMENT MAKER Gender Identity Female 12/14/2019 1:45 PM CDT Sexual Orientation Straight 12/14/2019 1: 45 PM CDT COVID-19 Exposure Response Date Recorded In the last month, have you been in contact with someone who was confirmed or suspected to have Coronavirus / COVID-19? No / Unsure 08/01/2020 7:33 AM DENTAL INSTRUMENT MAKER documented as of this encounter Plan of Treatment Upcoming Encounters Date Type Department Care Team (Late st Contact Info) Description 02/28/2025 7:30 AM CDT [facility] [address] [place] [address] Jennifer Wylie APRN [address] [place] [address] 02/28/2025 9:40 AM CDT Appointment [facility] [address] [place] [phone] Lennox Weston MD [address] [place] [address] documented as of this encounter Visit Diagnoses Diagnosis Primary osteoarthritis of both knees Primary localized osteoarthrosis, lower leg documented in this encounter Additional Health Concerns Infection Onset Date Last Indicated Resolved Time COVID-19 Rule-Out 03/28/2021 03/28/2021 03/28/2021 5:25 PM CDT COVID-19 Rule-Out 07/09/2021 07/28/2021 07/23/2021 2:35 AM DENTAL INSTRUMENT MAKER COVID-19 Rule-Out 07/23/2021 07/23/2021 07/28/2021 1:47 PM DENTAL INSTRUMENT MAKER COVID-19 Rule-Out 07/28/2021 07/28/2021 07/28/2021 7:27 PM DENTAL INSTRUMENT MAKER COVID-19 Rule-Out 08/14/2021 08/14/2021 08/14/2021 1:31 PM DENTAL INSTRUMENT MAKER COVID-19 Rule-Out 08/14/2021 08/22/2021 09/05/2021 2:34 AM CDT Assessment Noted Time PHQ-9 Depression Total Score: 1 04/05/20 10:15 AM CDT documented as of this encounter Care Teams Burr Picker Relationship Specialty Start Date End Date Peek, Jennifer K, REN [address] [facility] [address] [place] [address] PCP - General Nurse Practitioner-Family 02/13/19 documented as of this encounter
--- OUTSIDE RECORDS SUMMARY | 2025-02-18 16:48 | XMS_ITS | Encounter Summary ---
Author Organization [facility] Address [address] [place] [address] Care Team Providers Care Citrus Peeler Name Role Phone Jennifer Wylie REN Primary Care Provider [phone] Reason for Visit * Reason Onset Date Comments Medication Refill 07/31/2020 Encounter Details Date Type Department Care Team (Late st Contact Info) Description 07/31/2020 Pt Refill [facility] [address] [address] Talia Phoenix NP [address] [facility] 60 [place] [address] Medication Refill Social History Tobacco Use Types [...] PM CDT Legal Sex Female 3:05 AM TANK CARPENTER Gender Identity Female 12/14/2019 1:45 PM CDT Sexual Orientation Straight 12/14/2019 1: 45 PM CDT COVID-19 Exposure Response Date Recorded In the last month, have you been in contact with someone who was confirmed or suspected to have Coronavirus / COVID-19? No / Unsure 08/01/2020 7:33 AM TANK CARPENTER documented as of this encounter Plan of Treatment Upcoming Encounters Date Type Department Care Team (Late st Contact Info) Description 02/28/2025 7:30 AM CDT Office Visit [facility] [address] [place] [phone] Jennifer Wylie, EDGE SETTER [address] [place], [place] [phone] 02/28/2025 9:40 AM CDT Appointment [facility] [address] [place] [phone] Lennox Weston MD [address] [place] [address] documented as of this encounter Visit Diagnoses Diagnosis Non-intractable vomiting with nausea, unspecified vomiting type documented in this encounter Additional Health Concerns Infection Onset Date Last Indicated Resolved Time COVID-19 Rule-Out 08/01/2020 08/01/2020 08/02/2020 10:46 AM TANK CARPENTER COVID-19 Rule-Out 03/28/2021 03/28/2021 03/28/2021 5:25 PM CDT COVID-19 Rule-Out 07/09/2021 07/28/2021 07/23/2021 2:35 AM TANK CARPENTER COVID-19 Rule-Out 07/23/2021 07/23/2021 07/28/2021 1:47 PM TANK CARPENTER COVID-19 Rule-Out 07/28/2021 07/28/2021 07/28/2021 7:27 PM TANK CARPENTER COVID-19 Rule-Out 08/14/2021 08/14/2021 08/14/2021 1:31 PM TANK CARPENTER COVID-19 Rule-Out 08/14/2021 08/22/2021 09/05/2021 2:34 AM CDT Assessment Noted Time PHQ-9 Depression Total Score: 1 04/05/20 19 10:15 AM CDT documented as of this encounter Care Teams Citrus Peeler Relationship Specialty Start Date End Date Jennifer Wylie APRN [address] [facility] [address] [place] [address] PCP - General Nurse Practitioner-Family 02/13/19 documented as of this encounter
--- OUTSIDE RECORDS SUMMARY | 2025-02-18 16:48 | XMS_ITS | Encounter Summary ---
Author Organization [facility] Address [address] [place] [address] Care Team Providers Care Rotary Drill Operator Name Role Phone Jennifer Wylie REN Primary Care Provider [phone] Reason for Visit * Reason Onset Date Comments Medication Refill 07/31/2020 Encounter Details Date Type Department Care Team (Late st Contact Info) Description 07/31/2020 Pt Refill [facility] [address] [address] Talia Phoenix NP [address] [facility] 60 [place] [address] Medication Refill Social History Tobacco [...] PM CDT Legal Sex Female 3:05 AM PHARMACIST IN CHARGE OWNER Gender Identity Female 12/14/2019 1:45 PM CDT Sexual Orientation Straight 12/14/2019 1: 45 PM CDT COVID-19 Exposure Response Date Recorded In the last month, have you been in contact with someone who was confirmed or suspected to have Coronavirus / COVID-19? No / Unsure 08/01/2020 7:33 AM PHARMACIST IN CHARGE OWNER documented as of this encounter Plan of Treatment Upcoming Encounters Date Type Department Care Team (Late st Contact Info) Description 02/28/2025 7:30 AM CDT [facility] [address] [place] [phone] Jennifer Wylie GAS STATION SUPERVISOR [address] [place], [place] [phone] 02/28/2025 9:40 AM CDT Appointment [facility] [address] [place] [phone] Lennox Weston MD [address] [place] [address] documented as of this encounter Visit Diagnoses Not on filedocumented in this encounter Additional Health Concerns Infection Onset Date Last Indicated Resolved Time COVID-19 Rule-Out 08/01/2020 08/01/2020 08/02/2020 10:46 AM PHARMACIST IN CHARGE OWNER COVID-19 Rule-Out 03/28/2021 03/28/2021 03/28/2021 5:25 PM CDT COVID-19 Rule-Out 07/09/2021 07/28/2021 07/23/2021 2:35 AM PHARMACIST IN CHARGE OWNER COVID-19 Rule-Out 07/23/2021 07/23/2021 07/28/2021 1:47 PM PHARMACIST IN CHARGE OWNER COVID-19 Rule-Out 07/28/2021 07/28/2021 07/28/2021 7:27 PM PHARMACIST IN CHARGE OWNER COVID-19 Rule-Out 08/14/2021 08/14/2021 08/14/2021 1:31 PM PHARMACIST IN CHARGE OWNER COVID-19 Rule-Out 08/14/2021 08/22/2021 09/05/2021 2:34 AM CDT Assessment Noted Time PHQ-9 Depression Total Score: 1 04/05/20 19 10:15 AM CDT documented as of this encounter Care Teams Rotary Drill Operator Relationship Specialty Start Date End Date Jennifer Wylie APRN [address] [facility] [address] [place] [address] PCP - General Nurse Practitioner-Family 02/13/19 documented as of this encounter
--- OUTSIDE RECORDS SUMMARY | 2025-02-18 16:48 | XMS_ITS | Encounter Summary ---
Author Organization [facility] Address [address] [place] [address] Care Team Providers Care Size Mixer Name Role Phone Jennifer Wylie APRN Primary Care Provider [phone] Reason for Visit * Reason Onset Date Comments Medication Refill 07/19/2024 Encounter Details Date Type Department Care Team (Late st Contact Info) Description 07/19/2024 Pt Refill [facility] [address] [place] [phone] Jennifer Wylie APRN [address] [place] [address] Medication Refill Social History Tobacco Use Types Packs/Day Years Used Date Smoking Tobacco: Every Day Cigarettes 1 41.4 Started: 06/07/1983; Last attempted to quit: 03/05/2022 Smokeless Tobacco: Never Alcohol Use Standard Drinks/Week Comments Never 0 (1 standard drink = 0.6 oz pur e alcohol) [facility] Utilities Answer Date Recorded In the [...] place to sleep or slept in a senior care (including now)? No 02/16/2024 Housing Stability Vital Sign Answer Viktor e Recorded In the last 12 months, was t here a time when you were not able to pay the mortgage or rent on time? No 07/12/2024 Number of Times Moved in the Last Year Not on fi le 07/12/2024 At any time in the past 12 m [facility], were you homeless or living in a senior care (including now)? No 07/12/2024 Alcohol Use Answer [...] PM CDT Legal Sex Female 3:05 AM CMM INSPECTOR Gender Identity Female 12/14/2019 1:45 PM CDT [...] AM CDT Office Visit [facility] [address] [facility] 60 [place] [address] Jennifer Wylie APRN 12[address] [facility] 60 [place] [address] 02/28/2025 9:40 AM CDT Appointment [facility] [address] [place] [address] Lennox Weston MD [address] [place] [address] documented as of this encounter Visit Diagnoses Diagnosis Muscle spasm Spasm of muscle documented in this encounter Additional Health Concerns Assessment Noted Time PHQ-9 Depression Total Score: 7 09/29/19 24 7:52 AM CDT documented as of this encounter Care Teams Size Mixer Relationship Specialty Start Date End Date Jennifer Wylie APRN 12[address] [facility] 60 [place] [address] PCP - General Nurse Practitioner-Family 02/13/19 documented as of this encounter
--- OUTSIDE RECORDS SUMMARY | 2025-02-18 16:48 | XMS_ITS | Encounter Summary ---
Author Organization [facility] Address [address] [place] [address] Care Team Providers Care Radio Electronics Technician Name Role Phone Jennifer Wylie APRN Primary Care Provider [phone] Reason for Visit * Reason Onset Date Comments Medication Refill 07/11/2021 Encounter Details Date Type Department Care Team (Late st Contact Info) Description 07/11/2021 Pt Refill [facility] [address] [place] [phone] Jennifer Wylie APRN [address] [place] [address] Medication Refill Social History Tobacco Use Types Packs/Day Years Used Date Smoking Tobacco: Every Day Cigarettes 1 41.7 Started: 06/07/1983 Smokeless Tobacco: Never Comments:she knows the risk Alcohol Use Standard Drinks/Week Comments Never 0 (1 standard drink = 0.6 oz pur e alcohol) PHQ-2 Answer Date Recorded PHQ-2 Score 1 07/04/2021 Alcohol Use Answer Date Recorded Frequency of Alcohol Consumption Not on file 04/15/2020 Average Number of Drinks Not on file 020 Frequency of Binge Drinking Not on file 02/2020 Alcohol Use Status Never 04/15/2020 Average alcohol consumption Not on file 02/2020 Comments No Sex and Gender Information Value Date Recorded Sex Assigned at Female 12/14/2019 1:45 PM CDT Legal Sex Female 3:05 AM FIRE TRUCK DRIVER Gender Identity Female 12/14/2019 1:45 PM CDT Sexual Orientation Straight 12/14/2019 1: 45 PM CDT COVID-19 Exposure Response Date Recorded In the last month, have you been in contact with someone who was confirmed or suspected to have Coronavirus / COVID-19? No / Unsure 07/09/2021 1:52 PM FIRE TRUCK DRIVER documented as of this encounter Functional Status [...] [facility] Center [address] [place] [address] Jennifer Wylie APRN [address] [place] [address] 02/28/2025 9:40 AM CDT Appointment [facility] [address] [facility] [place] [address] Lennox Weston MD [address] [place] [address] documented as of this encounter Visit Diagnoses Diagnosis Essential hypertension Unspecified essential hypertension documented in this encounter Additional Health Concerns Infection Onset Date Last Indicated Resolved Time COVID-19 Rule-Out 07/09/2021 07/28/2021 07/23/2021 2:35 AM FIRE TRUCK DRIVER COVID-19 Rule-Out 07/23/2021 07/23/2021 07/28/2021 1:47 PM FIRE TRUCK DRIVER COVID-19 Rule-Out 07/28/2021 07/28/2021 07/28/2021 7:27 PM FIRE TRUCK DRIVER COVID-19 Rule-Out 08/14/2021 08/14/2021 08/14/2021 1:31 PM FIRE TRUCK DRIVER COVID-19 Rule-Out 08/14/2021 08/22/2021 09/05/2021 2:34 AM CDT Assessment Noted Time PHQ-9 Depression Total Score: 1 04/05/20 19 10:15 AM CDT documented as of this encounter Care Teams Radio Electronics Technician Relationship Specialty Start Date End Date Jennifer Wylie APRN 1284 [facility] [address] [place] [address] PCP - General Nurse Practitioner-Family 02/13/19 documented as of this encounter
--- OUTSIDE RECORDS SUMMARY | 2025-02-18 16:48 | XMS_ITS | Encounter Summary ---
Author Organization [facility] Address [address] [place] [address] Care Team Providers Care Territory Sales Manager Name Role Phone Jennifer Wylie APRN Primary Care Provider [phone] Reason for Visit * Reason Onset Date Comments Medication Refill 07/07/2021 Encounter Details Date Type Department Care Team (Late st Contact Info) Description 07/07/2021 Pt Refill [facility] [address] [place] [phone] Jennifer Wylie APRN [address] [place] [address] Medication Refill Social History Tobacco [...] PM CDT Legal Sex Female 3:05 AM ELECTRICIAN OFFICE Gender Identity Female 12/14/2019 1:45 PM CDT Sexual Orientation Straight 12/14/2019 1: 45 PM CDT COVID-19 Exposure Response Date Recorded In the last month, have you been in contact with someone who was confirmed or suspected to have Coronavirus / COVID-19? No / Unsure 07/09/2021 1:52 PM ELECTRICIAN OFFICE documented as of this encounter Functional Status [...] Description 02/28/2025 7:30 AM CDT Office [facility] [place] [address] [place] [address] Jennifer Wylie APRN [address] [place] [address] 02/28/2025 9:[address] [facility] [address] [facility] [place] [address] Lennox Weston MD [address] [place] [address] documented as of this encounter Visit Diagnoses Diagnosis Muscle spasm Spasm of muscle documented in this encounter Additional Health Concerns Infection Onset Date Last Indicated Resolved Time COVID-19 Rule-Out 07/09/2021 07/28/2021 07/23/2021 2:35 AM ELECTRICIAN OFFICE COVID-19 Rule-Out 07/23/2021 07/23/2021 07/28/2021 1:47 PM ELECTRICIAN OFFICE COVID-19 Rule-Out 07/28/2021 07/28/2021 07/28/2021 7:27 PM ELECTRICIAN OFFICE COVID-19 Rule-Out 08/14/2021 08/14/2021 08/14/2021 1:31 PM ELECTRICIAN OFFICE COVID-19 Rule-Out 08/14/2021 08/22/2021 09/05/2021 2:34 AM CDT Assessment Noted Time PHQ-9 Depression Total Score: 1 04/05/20 10:15 AM CDT documented as of this encounter Care Teams Territory Sales Manager Relationship Specialty Start Date End Date Jennifer Wylie APRN [address] [facility] [address] [place] [address] PCP - General Nurse Practitioner-Family 02/13/19 documented as of this encounter
--- OUTSIDE RECORDS SUMMARY | 2025-02-18 16:48 | XMS_ITS | Encounter Summary ---
Author Organization [facility] Address [address] [place] [address] Care Team Providers Care Seasonal Customer Service Associate Name Role Phone Jennifer Wylie APRN Primary Care Provider [phone] Reason for Visit * Reason Onset Date Comments Medication Refill 12/04/2022 Encounter Details Date Type Department Care Team (Late st Contact Info) Description 12/04/2022 Pt Refill [facility] [address] [place] [phone] Jennifer Wylie APRN [address] [place] [address] Medication Refill Social History Tobacco [...] PM CDT Legal Sex Female 3:05 AM CAR 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 No / Unsure 11/04/2022 9:37 AM CDT documented as of this encounter [...] Telephone Encounter - Joseline Ramos CMA - 12/04/2022 10:33 AM CDT LAST OV:09/17/22 RAQUEL REVIEWED REQUEST # : [id number] LAST FILL:11/06/22 DUE ON:12/05/22 documented in this encounter Plan of Treatment Upcoming Encounters Date Type Department Care Team (Late st Contact Info) Description 02/28/2025 7:30 AM CDT Office Visit [facility] 1284 [facility] 60 [place] [address] Jennifer Wylie APRN [address] [address] 02/28/2025 9:40 AM CDT Appointment [facility] [address] [place] [address] Lennox Weston MD [address] [place] [address] documented as of this encounter Visit Diagnoses Diagnosis Primary osteoarthritis of both knees Primary localized osteoarthrosis, lower leg documented in this encounter Additional Health Concerns Assessment Noted Time PHQ-9 Depression Total Score: 0 03/09/20 22 5:06 PM CDT documented as of this encounter Care Teams Seasonal Customer Service Associate Relationship Specialty Start Date End Date Jennifer Wylie APRN 12[address] [facility] 60 [place] [address] PCP - General Nurse Practitioner-Family 02/13/19 documented as of this encounter
--- OUTSIDE RECORDS SUMMARY | 2025-02-18 16:48 | XMS_ITS | Encounter Summary ---
Author Organization [facility] Address [address] [place] [address] Care Team Providers Care Log Haul Chain Feeder Name Role Phone Jennifer Wylie REN Primary Care Provider [phone] Reason for Visit * Reason Onset Date Comments Medication Refill 12/08/2021 Encounter Details Date Type Department Care Team (Late st Contact Info) Description 12/08/2021 Pt Refill [facility] [address] [place] [address] Kenyon Williamson MD [address] [place] [address] Medication Refill Social History Tobacco Use Types Packs/Day Years Used Date Smoking Tobacco: Every Day Cigarettes 1 41.7 Started: 06/07/1983 Smokeless Tobacco: Never Comments:she knows the risk Alcohol Use Standard Drinks/Week Comments Never 0 (1 standard drink = 0.6 oz pur e alcohol) PHQ-2 Answer Date Recorded PHQ-2 Score 0 12/09/2021 Alcohol Use Answer Date Recorded Frequency of Alcohol Consumption Not on file 04/15/2020 Average Number of Drinks Not on file 020 Frequency of Binge Drinking Not on file 02/2020 Alcohol Use Status Never 04/15/2020 Average alcohol consumption Not on file 02/2020 Comments No Sex and Gender Information Value Date Recorded Sex Assigned at Female 12/14/2019 1:45 PM CDT Legal Sex Female 3:05 AM CREATIVE SPECIALIST Gender Identity Female 12/14/2019 1:45 PM CDT Sexual Orientation Straight 12/14/2019 1 :45 PM CDT documented as of this encounter [...] Description 02/28/2025 7:30 AM CDT Office Visit [facility] [address] [place] [phone] Jennifer Wylie APRN [address] [place] [address] 02/28/2025 9:40 AM CDT Appointment [facility] Kai [address] [place] [address] Lennox Weston MD [address] [place] [address] documented as of this encounter Visit Diagnoses Diagnosis Primary osteoarthritis of both knees Primary localized osteoarthrosis, lower leg documented in this encounter Additional Health Concerns Assessment Noted Time PHQ-9 Depression Total Score: 1 04/05/20 19 10:15 AM CDT documented as of this encounter Care Teams Log Haul Chain Feeder Relationship Specialty Start Date End Date Jennifer Wylie APRN 12[address] [facility] [address] [place] [address] PCP - General Nurse Practitioner-Family 02/13/19 documented as of this encounter
--- OUTSIDE RECORDS SUMMARY | 2025-02-18 16:48 | XMS_ITS | Encounter Summary ---
Author Organization [facility] Address [address] [place] [address] Care Team Providers Care Pricing Associate Name Role Phone Jennifer Wylie APRN Primary Care Provider [phone] Reason for Visit * Reason Onset Date Comments Medication Refill 02/03/2025 Encounter Details Date Type Department Care Team (Late st Contact Info) Description 02/03/2025 Pt [facility] [address] [place] [address] Alejandro Tolentino MD [address] [place] [address] Medication Refill Social History Tobacco Use Types Packs/Day Years Used Date Smoking Tobacco: Every Day Cigarettes 1 41.4 Started: 06/07/1983; Last attempted to quit: 03/05/2022 Smokeless Tobacco: Never Alcohol Use Standard Drinks/Week Comments Not Currently 0 (1 standard drink = 0.6 oz pur e alcohol) [facility] Utilities Answer Date Recorded In the past 12 months has e electric, gas, oil, or water company threatened to shut off services in your home? No 07/12/2024 PHQ-2 Answer Date Recorded PHQ-2 Score 0 11/13/2024 Housing Stability Vital Sign Answer Viktor e [...] place to sleep or slept in a long-term (including now)? No 02/16/2024 Housing Stability Vital Sign Answer Viktor e Recorded In the last 12 months, was t here a time when you were not able to pay the mortgage or rent on time? No 07/12/2024 Number of Times Moved in the Last Year Not on fi le 07/12/2024 At any time in the past 12 m [facility], were you homeless or living in a long-term (including now)? No 07/12/2024 Alcohol Use Answer Date Recorded Frequency of Alcohol Consumption Not on file 12/07/2024 Average Number of Drinks Not on file 025 Frequency of Binge Drinking Not on file 08/2024 Alcohol Use Status Not Currently 12/07/2024 Average alcohol consumption Not on file 08/2024 Comments No Sex and Gender Information Value Date Recorded Sex Assigned at Female 12/14/2019 1:45 PM CDT Legal Sex Female 3:05 AM NUT DEHYDRATOR OPERATOR Gender Identity Female 12/14/2019 1:45 PM [...] Author No 03/29/2021 9:00 AM CDT Henrry Mtahews RN * Do you have difficulty dressing [...] 7:30 AM CDT Office [facility] [address] [facility] [address] [place] [phone] Jennifer Wylie APRN [address] [facility] [address] [place] [address] 02/28/2025 9:40 AM CDT Appointment [facility] [address] [place] [address] Lennox Weston MD [address] [place] [address] documented as of this encounter Visit Diagnoses Diagnosis Other closed fracture of proximal end of left ulna, initial encounter documented in this encounter Additional Health Concerns Assessment Noted Time PHQ-9 Depression Total Score: 7 09/29/19 24 7:52 AM CDT documented as of this encounter Care Teams Pricing Associate Relationship Specialty Start Date End Date Jennifer Wylie APRN [address] [facility] [address] [place] [address] PCP - General Nurse Practitioner-Family 02/13/19 documented as of this encounter
--- OUTSIDE RECORDS SUMMARY | 2025-02-18 16:48 | XMS_ITS | Encounter Summary ---
Author Organization [facility] Address [address] [place] [address] Care Team Providers Care Inspector Radar And Electronics Name Role Phone Jennifer Wylie APRN Primary Care Provider [phone] Reason for Visit * Reason Onset Date Comments Medication Refill 09/18/2020 Encounter Details Date Type Department Care Team (Late st Contact Info) Description 09/18/2020 Pt Refill [facility] [address] [place] [phone] Jennifer Wylie APRN [address] [place] [address] Medication Refill Social History Tobacco Use Types Packs/Day Years Used Date Smoking Tobacco: Every Day Cigarettes 1 41.7 Started: 06/07/1983 Smokeless Tobacco: Never Comments:she knows the risk Alcohol Use Standard Drinks/Week Comments Never 0 (1 standard drink = 0.6 oz pur e alcohol) PHQ-2 Answer Date Recorded PHQ-2 Score 0 08/14/2020 Alcohol Use Answer Date Recorded Frequency of Alcohol Consumption Not on file 04/15/2020 Average Number of Drinks Not on file 020 Frequency of Binge Drinking Not on file 02/2020 Alcohol Use Status Never 04/15/2020 Average alcohol consumption Not on file 02/2020 Comments No Sex and Gender Information Value Date Recorded Sex Assigned at Female 12/14/2019 1:45 PM CDT Legal Sex Female 3:05 AM 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 No / Unsure 08/19/2020 8:17 AM CDT documented as of this encounter Plan of Treatment Upcoming Encounters Date Type Department Care Team (Late st Contact Info) Description 02/28/2025 7:30 AM CDT Office Visit [facility] [address] [place] [phone] Jennifer Wylie BUTT SAWYER [address] [place] [address] 02/28/2025 9:40 AM CDT Appointment [facility] [address] [place] [phone] Lennox Weston MD [address] [place] [address] documented as of this encounter Visit Diagnoses Diagnosis Anxiety Anxiety state, unspecified documented in this encounter Additional Health Concerns Infection Onset Date Last Indicated Resolved Time COVID-19 Rule-Out 03/28/2021 03/28/2021 03/28/2021 5:25 PM CDT COVID-19 Rule-Out 07/09/2021 07/28/2021 07/23/2021 2:35 AM WHEEL OF FORTUNE DEALER COVID-19 Rule-Out 07/23/2021 07/23/2021 07/28/2021 1:47 PM WHEEL OF FORTUNE DEALER COVID-19 Rule-Out 07/28/2021 07/28/2021 07/28/2021 7:27 PM WHEEL OF FORTUNE DEALER COVID-19 Rule-Out 08/14/2021 08/14/2021 08/14/2021 1:31 PM WHEEL OF FORTUNE DEALER COVID-19 Rule-Out 08/14/2021 08/22/2021 09/05/2021 2:34 AM CDT Assessment Noted Time PHQ-9 Depression Total Score: 1 04/05/20 10:15 AM CDT documented as of this encounter Care Teams Inspector Radar And Electronics Relationship Specialty Start Date End Date Jennifer Wylie APRN [address] [facility] [address] [place] [address] PCP - General Nurse Practitioner-Family 02/13/19 documented as of this encounter
--- OUTSIDE RECORDS SUMMARY | 2025-02-18 16:48 | XMS_ITS | Encounter Summary ---
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 Gender Identity Female 12/14/2019 1:45 PM CDT [...] Telephone Encounter - Joseline Ramos CMA - 09/07/2022 10:11 AM CDT LAST OV:05/28/22 Pending appt 09/17/22 [facility] REVIEWED REQUEST # : [id number] LAST FILL:08/08/22 DUE ON:09/07/22 documented in this encounter Plan of Treatment Upcoming Encounters Date Type Department Care Team (Late st Contact Info) Description 02/28/2025 7:30 AM CDT Office Visit [facility] [address] [facility] [address] [place] [address] Jennifer Wylie APRN [address] [facility] [address] [place] [address] 02/28/2025 9:40 AM CDT Appointment [facility] [address] [place] [address] Lennox Weston MD [address] [place] [address] documented as of this encounter Visit Diagnoses Diagnosis Primary osteoarthritis of both knees Primary localized osteoarthrosis, lower leg documented in this encounter Additional Health Concerns Assessment Noted Time PHQ-9 Depression Total Score: 0 03/09/20 22 5:06 PM CDT documented as of this encounter Care Teams Business Practices Supervisor Relationship Specialty Start Date End Date Jennifer Wylie APRN [address] [facility] [address] [place] [address] PCP - General Nurse Practitioner-Family 02/13/19 documented as of this encounter
--- OUTSIDE RECORDS SUMMARY | 2025-02-18 16:48 | XMS_ITS | Encounter Summary ---
Author Organization [facility] Address [address] [place] [address] Care Team Providers Care Data Center Operator Name Role Phone Jennifer Wylie APRN Primary Care Provider [phone] Reason for Visit * Reason Onset Date Comments Medication Refill 11/04/2022 Encounter Details Date Type Department Care Team (Late st Contact Info) Description 11/04/2022 Pt Refill [facility] [address] [place] [phone] Jennifer Wylie APRN [address] [place] [address] Medication Refill Social History Tobacco [...] PM CDT 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 Gender Identity Female 12/14/2019 1:45 PM [...] Telephone Encounter - Mary Eldridge RMA - 11/05/2022 12:16 PM CDT LAST OV:09/17/2022 [facility] REVIEWED REQUEST # : [id number] LAST FILL NORCO:10/07/2022 DUE ON:11/06/2022 LAST FILL GABAPENTIN:10/05/2022 DUE ON:11/04/2022 documented in this encounter Plan of Treatment Upcoming Encounters Date Type Department Care Team (Late st Contact Info) Description 02/28/2025 7:30 AM CDT Office Visit [facility] [address] [place] [address] Jennifer Wylie APRN [address] [place] [address] 02/28/2025 9:40 AM CDT Appointment [facility] [address] [place] [address] Lennox Weston MD [address] [place] [address] documented as of this encounter Visit Diagnoses Diagnosis Primary osteoarthritis of both knees Primary localized osteoarthrosis, lower leg documented in this encounter Additional Health Concerns Assessment Noted Time PHQ-9 Depression Total Score: 0 03/09/20 22 5:06 PM CDT documented as of this encounter Care Teams Data Center Operator Relationship Specialty Start Date End Date Jennifer Wylie APRN [address] [facility] [address] [place] [address] PCP - General Nurse Practitioner-Family 02/13/19 documented as of this encounter
--- OUTSIDE RECORDS SUMMARY | 2025-02-18 16:48 | XMS_ITS | Encounter Summary ---
Author Organization [facility] Address [address] [place] [address] Care Team Providers Care Curer Foam Rubber Name Role Phone Jennifer Wylie APRN Primary Care Provider [phone] Reason for Visit * Reason Onset Date Comments Medication Refill 03/25/2021 Encounter Details Date Type Department Care Team (Late st Contact Info) Description 03/25/2021 Pt Refill [facility] [address] [place] [phone] Jennifer Wylie APRN [address] [place] [address] Medication Refill Social History Tobacco [...] PM CDT Legal Sex Female 3:05 AM CLIENT SUPPORT ANALYST Gender Identity Female 12/14/2019 1:45 PM CDT [...] Visit [facility] [address] [place] [phone] Jennifer Wylie APRN [address] [place] [address] 02/28/2025 9:40 AM CDT Appointment [facility] [address] [place] [phone] Lennox Weston MD [address] [place] [address] documented as of this encounter Visit Diagnoses Diagnosis Essential hypertension Unspecified essential hypertension documented in this encounter Additional Health Concerns Infection Onset Date Last Indicated Resolved Time COVID-19 Rule-Out 03/28/2021 03/28/2021 03/28/2021 5:25 PM CDT COVID-19 Rule-Out 07/09/2021 07/28/2021 07/23/2021 2:35 AM CLIENT SUPPORT ANALYST COVID-19 Rule-Out 07/23/2021 07/23/2021 07/28/2021 1:47 PM CLIENT SUPPORT ANALYST COVID-19 Rule-Out 07/28/2021 07/28/2021 07/28/2021 7:27 PM CLIENT SUPPORT ANALYST COVID-19 Rule-Out 08/14/2021 08/14/2021 08/14/2021 1:31 PM CLIENT SUPPORT ANALYST COVID-19 Rule-Out 08/14/2021 08/22/2021 09/05/2021 2:34 AM CDT Assessment Noted Time PHQ-9 Depression Total Score: 1 04/05/20 10:15 AM CDT documented as of this encounter Care Teams Curer Foam Rubber Relationship Specialty Start Date End Date Jennifer Wylie APRN [address] [facility] [address] [place] [address] PCP - General Nurse Practitioner-Family 02/13/19 documented as of this encounter
--- OUTSIDE RECORDS SUMMARY | 2025-02-18 16:48 | XMS_ITS | Encounter Summary ---
Author Organization [facility] Address [address] [place] [address] Care Team Providers Care Density Control Puncher Name Role Phone Jennifer Wylie APRN Primary Care Provider [phone] Reason for Visit * Reason Onset Date Comments Medication Refill 12/30/2023 Encounter Details Date Type Department Care Team (Late st Contact Info) Description 12/30/2023 Pt Refill [facility] [address] [place] [phone] Jennifer Wylie APRN [address] [place] [address] Medication Refill Social History Tobacco [...] place to sleep or slept in a detention (including now)? 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 DERMATOLOGY SPECIALIST Gender Identity Female 12/14/2019 1:45 PM [...] Description 02/28/2025 7:30 AM CDT [facility] [address] [place] [address] Jennifer Wylie, SINKER PULLER [address] [place] [address] 02/28/2025 9:[address] [facility] [address] [place] [address] Lennox Weston MD [address] [place] [address] documented as of this encounter Visit Diagnoses Diagnosis Muscle spasm Spasm of muscle documented in this encounter Additional Health Concerns Assessment Noted Time PHQ-9 Depression Total Score: 7 09/29/19 24 7:52 AM CDT documented as of this encounter Care Teams Density Control Puncher Relationship Specialty Start Date End Date Jennifer Wylie APRN [address] [facility] [address] [place] [address] PCP - General Nurse Practitioner-Family 02/13/19 documented as of this encounter
--- OUTSIDE RECORDS SUMMARY | 2025-02-18 16:48 | XMS_ITS | Encounter Summary ---
Author Organization [facility] Address [address] [place] [address] Care Team Providers Care Trading Manager Name Role Phone Jennifer Wylie APRN Primary Care Provider [phone] Reason for Visit * Reason Onset Date Comments Medication Refill 10/16/2023 Encounter Details Date Type Department Care Team (Late st Contact Info) Description 10/16/[address] [facility] [address] [place] [phone] Jennifer Wylie APRN [address] [place] [address] Medication Refill Social History Tobacco [...] place to sleep or slept in a fdc (including now)? 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 [address] [place] [address] Jennifer Wylie, PRINTED PRODUCTS ASSEMBLER [address] [place] [address] 02/28/2025 9:40 AM CDT Appointment [facility] [address] [place] [address] Lennox Weston MD [address] [place] [address] documented as of this encounter Visit Diagnoses Diagnosis Type 2 diabetes mellitus without complication, without long-term current use of insulin (HCC) documented in this encounter Additional Health Concerns Assessment Noted Time PHQ-9 Depression Total Score: 7 09/29/19 24 7:52 AM CDT documented as of this encounter Care Teams Trading Manager Relationship Specialty Start Date End Date Jennifer Wylie APRN [facility] [facility] [address] [place] [address] PCP - General Nurse Practitioner-Family 02/13/19 documented as of this encounter
--- OUTSIDE RECORDS SUMMARY | 2025-02-18 16:48 | XMS_ITS | Encounter Summary ---
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 Gender Identity Female 12/14/2019 1:45 PM CDT [...] Telephone Encounter - Joseline Ramos CMA - 05/07/2022 9:31 AM CST LAST OV:04/10/22 [facility] REVIEWED REQUEST # : [id number] LAST FILL:04/06/22 DUE ON: EL ENDSHAKER ADJUSTER documented in this encounter Plan of Treatment Upcoming Encounters Date Type Department Care Team (Late st Contact Info) Description 02/28/2025 7:30 AM CDT [facility] [address] [place] [address] Jennifer Wylie, DERMATOLOGIST MANAGING PARTNER [address] [place] [address] 02/28/2025 9:40 AM CDT Appointment [facility] [address] [place] [address] Lennox Weston MD [address] [place] [address] documented as of this encounter Visit Diagnoses Not on filedocumented in this encounter Additional Health Concerns Assessment Noted Time PHQ-9 Depression Total Score: 0 03/09/20 22 5:06 PM CDT documented as of this encounter Care Teams Senior Financial Analyst Relationship Specialty Start Date End Date Jennifer Wylie APRN [address] [facility] [address] [place] [address] PCP - General Nurse Practitioner-Family 02/13/19 documented as of this encounter
--- OUTSIDE RECORDS SUMMARY | 2025-02-18 16:48 | XMS_ITS | Encounter Summary ---
Author Organization [facility] Address [address] [place] [address] Care Team Providers Care Feed Crusher Operator Name Role Phone Jennifer Wylie APRN Primary Care Provider [phone] Reason for Visit * Reason Onset Date Comments Medication Refill 08/02/2023 Encounter Details Date Type Department Care Team (Late st Contact Info) Description 08/02/2023 Pt Refill [facility] [address] [place] [phone] Jennifer Wylie APRN [address] [place] [address] Medication Refill Social History Tobacco [...] place to sleep or slept in a half-way (including now)? 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 Gender Identity Female 12/14/2019 1:45 PM CDT [...] Description 02/28/2025 7:30 AM CDT Office Visit [facility] [address] [place] [address] Jennifer Wylie, ECOLOGY TEACHER [address] [place] [address] 02/28/2025 9:40 AM CDT Appointment [facility] [address] [place] [address] Lennox Weston MD [address] [place] [address] documented as of this encounter Visit Diagnoses Diagnosis Type 2 diabetes mellitus without complication, with long-term current use of insulin (HCC) documented in this encounter Additional Health Concerns Assessment Noted Time PHQ-9 Depression Total Score: 0 03/09/20 22 5:06 PM CDT documented as of this encounter Care Teams Feed Crusher Operator Relationship Specialty Start Date End Date Jennifer Wylie APRN [address] [facility] [address] [place] [address] PCP - General Nurse Practitioner-Family 02/13/19 documented as of this encounter
--- OUTSIDE RECORDS SUMMARY | 2025-02-18 16:49 | XMS_ITS | Encounter Summary ---
Author Organization [facility] Address [address] [place] [address] Care Team Providers Care Underwriting Assistant Name Role Phone Jennifer Wylie APRN Primary Care Provider [phone] Reason for Visit * Reason Onset Date Comments Medication Refill 05/22/2024 Encounter Details Date Type Department Care Team (Late st Contact Info) Description 05/22/2024 Pt Refill [facility] [address] [place] [phone] Jennifer Wylie APRN [address] [place] [address] Medication Refill Social History Tobacco Use Types Packs/Day Years Used Date Smoking Tobacco: Every Day Cigarettes 1 38.7 Started: 06/07/1983; Last attempted to quit: 03/05/2022 Smokeless Tobacco: Never Alcohol Use Standard Drinks/Week Comments Never 0 (1 standard drink = 0.6 oz pur e alcohol) [facility] Utilities Answer Date Recorded In the past 12 months has e electric, gas, oil, or water company threatened to shut off services in your home? Patient declined 02/16/2024 PHQ-2 Answer Date Recorded PHQ-2 Score 0 03/28/2024 Housing Stability Vital Sign Answer Viktor e [...] slept in a detention (including now)? No 02/16/2024 Alcohol Use Answer Date Recorded Frequency of Alcohol Consumption Not on file 11/02/2023 Average Number of Drinks Not on file 024 Frequency of Binge Drinking Not on file 10/06 Alcohol Use Status Never 11/02/2023 Average alcohol consumption Not on file 10/06 Comments No Sex and Gender Information Value Date Recorded Sex Assigned at Female 12/14/2019 1:45 PM CDT Legal Sex Female 3:05 AM ADDICTION PSYCHIATRIST Gender Identity Female 12/14/2019 1:45 PM CDT [...] Henrry Lynch RN documented in this encounter Plan of Treatment Upcoming Encounters Date Type Department Care Team (Late st Contact Info) Description 02/28/2025 7:30 AM CDT Office Visit [facility] [address] [place] [phone] Jennifer Wylie APRN 12[address] [facility] [address] [place] [address] 02/28/2025 9:40 AM CDT Appointment [facility] [address] [place] [address] Lennox Weston MD [address] [place] [address] documented as of this encounter Visit Diagnoses Diagnosis Muscle spasm Spasm of muscle documented in this encounter Additional Health Concerns Assessment Noted Time PHQ-9 Depression Total Score: 7 09/29/19 24 7:52 AM CDT documented as of this encounter Care Teams Underwriting Assistant Relationship Specialty Start Date End Date Jennifer Wylie APRN [address] [facility] [address] [place] [address] PCP - General Nurse Practitioner-Family 02/13/19 documented as of this encounter
--- OUTSIDE RECORDS SUMMARY | 2025-02-18 16:49 | XMS_ITS | Encounter Summary ---
Author Organization [facility] Address [address] [place] [id number] Care Team Providers Care Behavior Analyst Name Role Phone Jennifer Wylie APRN Primary Care Provider [phone] Reason for Visit * Reason Onset Date Comments Medication Refill 03/01/2024 Encounter Details Date Type Department Care Team (Late st Contact Info) Description 03/01/2024 Pt Refill [facility] [address] [place] [phone] Jennifer Wylie APRN [address] [place] [address] Medication Refill Social History Tobacco Use Types Packs/Day Years Used Date Smoking Tobacco: Every Day Cigarettes 1 38.7 Started: 06/07/1983; Last attempted to quit: 03/05/2022 Smokeless Tobacco: Never Alcohol Use Standard Drinks/Week Comments Never 0 (1 standard drink = 0.6 oz pur e alcohol) [facility] Utilities Answer Date Recorded In the past 12 months has e electric, gas, oil, or water company threatened to shut off services in your home? Patient declined 02/16/2024 PHQ-2 Answer Date Recorded PHQ-2 Score 1 02/16/2024 Housing Stability Vital Sign Answer Viktor [...] place to sleep or slept in a retirement (including now)? No 02/16/2024 Alcohol Use Answer [...] PM CDT Legal Sex Female 3:05 AM EARLY CHILDHOOD SERVICES COORDINATOR Gender Identity Female 12/14/2019 1:45 PM [...] Description 02/28/2025 7:30 AM CDT Office Visit [facility] [address] [place] [phone] Jennifer Wylie APRN [address] [facility] [address] [place] [address] 02/28/2025 9:40 AM CDT Appointment [facility] [address] [place] [address] Lennox Weston MD [address] [place] [address] documented as of this encounter Visit Diagnoses Diagnosis Muscle spasm Spasm of muscle documented in this encounter Additional Health Concerns Assessment Noted Time PHQ-9 Depression Total Score: 7 09/29/19 24 7:52 AM CDT documented as of this encounter Care Teams Behavior Analyst Relationship Specialty Start Date End Date Jennifer Wylie APRN [address] [facility] [address] [place] [address] PCP - General Nurse Practitioner-Family 02/13/19 documented as of this encounter
--- OUTSIDE RECORDS SUMMARY | 2025-02-18 16:49 | XMS_ITS | Encounter Summary ---
Author Organization [facility] Address [address] [place] [address] Care Team Providers Care Package Crimper Name Role Phone Jennifer Wylie APRN Primary Care Provider [phone] Reason for Visit * Reason Onset Date Comments Medication Refill 05/12/2024 Encounter Details Date Type Department Care Team (Late st Contact Info) Description 05/12/2024 Pt Refill [facility] [address] [place] [phone] Jennifer Wylie APRN [address] [place] [address] Medication Refill Social History Tobacco Use Types Packs/Day Years Used Date Smoking Tobacco: Every Day Cigarettes 1 38.7 Started: 06/07/1983; Last attempted to quit: 03/05/2022 Smokeless Tobacco: Never Alcohol Use Standard Drinks/Week Comments Never 0 (1 standard drink = 0.6 oz pur e alcohol) [facility] Utilities Answer Date Recorded In the [...] place to sleep or slept in a fci (including now)? No 02/16/2024 Alcohol Use Answer [...] PM CDT Legal Sex Female 3:05 AM CARBON PAPER [employer]ATING SUPERVISOR Gender Identity Female 12/14/2019 1:45 PM CDT [...] encounter Miscellaneous Notes * Telephone Encounter - Mirela Lr CMA - 05/12/2024 10:01 AM CARBON PAPER COATING SUPERVISOR Last rupinder: 05/12/2024 Last seen: 03/30/2024 No pending appt Last filled: 04/19/2024 Rupinder has been reviewed. ON PAPER COATING SUPERVISOR documented in this encounter Plan of Treatment Upcoming Encounters Date Type Department Care Team (Late st Contact Info) Description 02/28/2025 7:30 AM CDT Office Visit [facility] [address] [place] [phone] Jennifer Wylie APRN [address] [place] [address] 02/28/2025 9:40 AM CDT Appointment [facility] [address] [place] [address] Lennox Weston MD [address] [place] [address] documented as of this encounter Visit Diagnoses Diagnosis Anxiety- Primary Anxiety state, unspecified documented in this encounter Additional Health Concerns Assessment Noted Time PHQ-9 Depression Total Score: 7 09/29/19 24 7:52 AM CDT documented as of this encounter Care Teams Package Crimper Relationship Specialty Start Date End Date Jennifer Wylie APRN [address] [facility] [address] [place] [address] PCP - General Nurse Practitioner-Family 02/13/19 documented as of this encounter
--- OUTSIDE RECORDS SUMMARY | 2025-02-18 16:49 | XMS_ITS | Clinical Summary ---
Author Organization [facility] Address [address] [place] [id number] Care Team Providers Care Conservation Biology Professor Name Role Phone Jennifer Wylie REN Primary Care Provider [phone] Allergies Active Allergy Reactions Criticality Noted Date Comments Wheat Extract Diarrhea Medium 04/24/2019 Medications aspirin 81 MG chewable tablet Daily Acti ve fish oil omega-3 fatty acids 1000 MG capsule Take 1 capsule (1,000 mg) by mouth daily Active cholecalciferol (VITAMIN D) 1000 UNIT (25 mcg) tablet Take 1 tablet (1,000 Units) by mouth daily 021 Active BD PEN NEEDLE BAYRON 2ND GEN 32G X 4 MM MISC daily 025 Active lisinopril (ZESTRIL) 20 MG tabletIndicatio ns:Essential hypertension Take 1 tablet (20 mg) by mouth daily 90 tablet 1 025 2024 Active Additional Information Patient not taking.Reported on 02/01/2025 Turmeric 500 MG CAPS Take 2 capsules (1,000 mg) by mouth at bedtime Active atenolol (TENORMIN) 50 MG tabletIndicatio ns:Essential hypertension Take 1 tablet (50 mg) by mouth 2 times daily 180 tablet 3 025 2025 Active metFORMIN (GLUCOPHAGE XR) 500 MG XR tabletIndicatio ns:Type 2 diabetes mellitus without complication, without long-term current use of insulin (HCC) Take 2 tablets (1,000 mg) by mouth daily 180 tablet 3 025 2025 Active insulin glargine (LANTUS, SEMGLEE) 100 UNIT/ML SOPN PenIndications: Type 2 diabetes mellitus without complication, without long-term current use of insulin ([facility]) Inject 36 Units into the skin at bedtime 32.4 mL 2 025 2024 Active omeprazole (PRILOSEC) 40 MG capsuleIndicati ons:Chronic GERD Take 1 capsule (40 mg) by mouth daily 30 capsule 5 025 2024 Active fluticasone (FLONASE) 50 MCG/ACT nasal sprayIndication s:Seasonal allergies 2 sprays by Nasal route daily for 30 days 16 g 5 Active Additional Information Patient not taking.Reported on 02/01/2025 lisinopril-hydr ochlorothiazide (PRINZIDE, ZESTORETIC) 20-12.5 MG per tabletIndicatio ns:Primary hypertension Take 1 tablet by mouth daily 90 tablet 1 025 2024 Active tiZANidine (ZANAFLEX) 4 MG tabletIndicatio ns:Musculoskele little Pain Take 1 tablet (4 mg) by mouth every 8 hours Indications: Musculoskeletal Pain 90 tablet 3 025 2024 Active atorvaSTATin (LIPITOR) 20 MG tabletIndicatio ns:Type 2 diabetes mellitus without complication, with long-term current use of insulin ([facility]) Take 1 tablet (20 mg) by mouth daily for 30 days 30 tablet 11 Active HYDROcodone-carlos a taminophen (NORCO) 7.5-325 MG per tabletIndicatio ns:Other closed fracture of proximal end of left ulna, initial encounter Take 1 tablet by mouth every 6 (six) hours if needed for Pain 20 tablet Active Additional Information Patient not taking.Reported on 02/01/2025 HYDROcodone-carlos a taminophen (NORCO) 5-325 MG per tabletIndicatio ns:Other closed fracture of proximal end of left ulna with routine healing, subsequent encounter Take 1 tablet by mouth every 6 (six) hours if needed for Pain 20 tablet Active Additional Information Patient not taking.Reported on 02/01/2025 HYDROcodone-carlos a taminophen (NORCO) 5-325 MG per tabletIndicatio ns:Other closed fracture of proximal end of left ulna with routine healing, subsequent encounter Take 1 tablet by mouth every 6 (six) hours if needed for Pain 20 tablet 025 Active Additional Information Patient not taking.Reported on 02/01/2025 gabapentin (NEURONTIN) 600 MG tabletIndicatio ns:Neuropathic pain Take 1 tablet (600 mg) by mouth 3 times daily 90 tablet 1 025 2024 Active gabapentin (NEURONTIN) 800 MG tabletIndicatio ns:Neuropathic pain Take 1 tablet (800 mg) by mouth 3 times daily 90 tablet 5 025 2024 Discontinued Active Problems Problem Noted Date Diagnosed Date Moderate episode of recurrent major depressive d isorder 02/26/2024 Mixed hyperlipidemia 02/26/2024 Numbness of fingers of both hands 02/26/2024 Class 2 obesity with body ma ss index (BMI) of 35.0 to 35.9 in adult 03/23/2022 COVID 01/07/2022 Bronchospasm with bronchitis, acute 03/28/2021 Cigarette nicotine dependence without complicati on 08/19/2020 Primary osteoarthritis of both knees 08/19/2020 Diabetic autonomic neuropath y associated with type 2 diabetes mellitus 08/19/2020 Type 2 diabetes mellitus wit h hyperglycemia, with long-term current use of insulin 08/19/2020 Essential hypertension 02/12/2020 Mild episode of recurrent major depressive disor jeremy 02/12/2020 Anxiety 02/12/2020 Insomnia 02/12/2020 Elevated glucose 02/12/2020 Neuropathy 02/12/2020 Left upper quadrant abdominal pain of unknown et iology 02/12/2020 Nausea 02/12/2020 Non-intractable vomiting 02/12/2020 Bloating 02/12/2020 Acute maxillary sinusitis 02/12/2020 Sinus pressure 02/12/2020 Nasal congestion 02/12/2020 Contact dermatitis 02/12/2020 Rash 02/12/2020 Fatigue 02/12/2020 Vision changes 02/12/2020 Tobacco abuse 02/12/2020 Tobacco abuse counseling 02/12/2020 Encounter for lipid screening for cardiovascular disease 02/12/2020 Encounter for hepatitis C sc reening test for low risk patient 02/12/2020 BMI 35.0-35.9,adult 02/12/2020 Gastroesophageal reflux disease 02/12/2020 Encounter for screening breast examination 01/12 Muscle spasms of both lower extremities 01/13/20 19 Menopausal symptoms 01/12/2019 Acute non-recurrent ethmoidal sinusitis 01/13/20 19 Encounters Date Type Department Care Team Description 02/03/2025 Pt Refill [facility] [place] [address] [place] [address] Alejandro Tolentino MD Medication Refill 02/01/2025 6:34 PM CDT - 02/01/2025 7:03 PM CDT Emergency [facility] Emergency Department [address] [place] [address] Kenyon Kendrick MD Migraine without aura and without status migrainosus, not intractable (Primary Dx) Discharge Disposition: Home 02/01/[address] [facility] [address] [place] [address] Jennifer Wylie APRN Medication Management 01/30/[address] [facility] [address] [place] [address] Jennifer Wylie APRN Neuropathic pain (Primary Dx) 01/29/2025 12:37 PM CDT - 01/29/2025 11:59 PM CDT Hospital Encounter [facility] Mammography [address] [place] [address] Jennifre Wylie APRN Visit for screening mammogram Discharge Disposition: Home 01/12/2025 10:20 AM CDT Office Visit [facility] [place] [address] [facility] [place] [address] Alejandro Tolentino MD Other closed fracture of proximal end of left ulna with routine healing, subsequent encounter (Primary Dx); Other closed fracture of proximal end of left ulna, initial encounter 01/12/2025 10:00 AM CDT Ancillary Procedure [facility] [place] [facility] [address] [facility] [place] [address] Alejandro Tolentino MD Other closed fracture of proximal end of left ulna, initial encounter 01/11/2025 Orders Only [facility] [address] [facility] [place] [address] Alejandro Tolentino MD Other closed fracture of proximal end of left ulna, initial encounter (Primary Dx) 01/10/[address] [facility] [address] [place] [address] Jennifer Wylie K, WET ROLLER Medication Refill 12/29/2024 12:05 PM CDT Ancillary Procedure [facility] [address] [place] [address] Alejandro Tolentino MD Elbow abrasion, left, sequela 12/29/2024 11:20 AM CDT Ancillary Procedure [facility] [address] [facility] [place] [address] Alejandro Tolentino MD Left wrist pain (Primary Dx); Closed nondisplaced fracture of lateral malleolus of right fibula, initial encounter 12/29/2024 11:20 AM CDT Office Visit [facility] [address] [facility] [place] [address] Alejandro Tolentino MD Other closed fracture of proximal end of left ulna, initial encounter (Primary Dx); Elbow injury, left, initial encounter 12/29/2024 Telephone [facility] [place] [address] [place] [address] Alejandro Tolentino MD Other 12/29/2024 Telephone [facility] [address] [place] [address] Alejandro Tolentino MD Other 12/28/2024 Orders Only [facility] [address] [place] [address] Alejandro Tolentino MD Closed nondisplaced fracture of lateral malleolus of right fibula, initial encounter (Primary Dx) 12/25/[address] [facility] [address] [facility] [address] [place] [address] PeJennifer valdes, WET ROLLER Referral 12/20/2024 7:17 AM CDT - 12/20/2024 8:23 AM CDT Emergency [facility] Emergency Department [address] [facility] [address] [place] [address] Bryson Garcia MD Closed fracture of proximal end of ulna without additional fracture (Primary Dx) Discharge Disposition: Home 12/14/[address] [facility] [address] [facility] [address] [place] [address] PeJennifer valdes, WET ROLLER Primary osteoarthritis of both knees (Primary Dx) 12/14/[address] [facility] [address] [facility] [address] [place] [address] PeJennifer valdes, WET ROLLER Other 12/07/2024 6:41 PM CDT - 12/07/2024 8:38 PM CDT Emergency [facility] Emergency Department [address] [facility] [address] [place] [address] Tasha Germain MD Hypotension, unspecified hypotension type (Primary Dx); Left against medical advice; Acute cystitis without hematuria Discharge Disposition: AMA 12/07/[address] [facility] [address] [facility] [address] [place] [address] PeJennifer valdes, WET ROLLER 12/07/[address] [facility] [address] [facility] [address] [place] [address] Mirela Lr, PRICING DIRECTOR Muscle spasm 12/06/2024 11:00 AM CDT Office Visit [facility] [address] [facility] [address] [place] [address] Peek, Jennifer K, WET ROLLER Type 2 diabetes mellitus without complication, without long-term current use of insulin ([facility]) (Primary Dx); Primary osteoarthritis of both knees; Acute non-recurrent frontal sinusitis; Acute cough; Head congestion; Acute sore throat; Medication management; History of exposure to hazardous bodily fluids; Primary hypertension; Essential hypertension; Neuropathic pain; Chronic GERD; Seasonal allergies; Encounter for diabetic foot exam ([facility]); Type 2 diabetes mellitus without complication, with long-term current use of insulin ([facility]); BMI 31.0-31.9,adult 11/30/[address] [facility] [address] [place] [address] Peek, Jennifer K, WET ROLLER Medication Refill 11/30/[address] [facility] [address] [place] [address] Peek, Jennifer K, WET ROLLER Medication Refill 11/27/[address] [facility] [address] [place] [address] Peek, Jennifer K, WET ROLLER Medication Refill 11/27/[address] [facility] [address] [place] [address] Peek, Jennifer K, WET ROLLER Medication Refill from Last 3 Months Immunizations Immunization Administration Dates Next Due Covid-19 28 Day Interval Moderna 10/12/2020,09/05 Covid-19 Moderna Bivalent Ian marzena 12+ Yrs 05/14/2021,10/12/2020,09/17/2020 Influenza Quadrivalent, Pres ervative Free 04/10/2022,03/29/2021(Deferred: - pt does not want while sick) Influenza, RIV3, Preservative Free 03/15/2024 Pneumococcal Conjugate Pcv20 03/15/2024 Pneumococcal Polysaccharide PPV23 01/31/2020 Tdap 06/24/2024,08/08/2009 Family History Medical History Relation Name Comments Other (See Comments) Brother Inflam Bowel Dis Father Breast Cancer Maternal Grandmother Cancer Mother Cancer Paternal Grandfather Relation Name Status Comments Brother Father Alive Maternal Grandmother Mother (Age 64) pancreatit ic, bone Paternal Grandfather pancrea tic Social History Tobacco Use Types Packs/Day Years Used Date Smoking Tobacco: Every Day Cigarettes 1 41.4 Started: 06/07/1983; Last attempted to quit: 03/05/2022 Smokeless Tobacco: Never Tobacco Cessation:Ready to Q uit: No; Counseling Given: Yes Alcohol Use Standard Drinks/Week Comments Not Currently 0 (1 standard drink = 0.6 oz pur e alcohol) [facility] Utilities Answer Date Recorded In the past 12 months has e [employer], gas, oil, or water trip[employer]me threatened to shut off services in your [...] in a detention (including now)? No 02/16/2024 Housing Stability Vital Sign Answer Viktor e Recorded In the last 12 months, was t here a time when you were not able to pay the mortgage or rent on time? No 07/12/2024 Number of Times Moved in the Last Year Not on fi le 07/12/2024 At any time in the past [address] [facility], were you homeless or living in a detention (including now)? 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 Gender Identity Female 12/14/2019 1:45 PM CDT Sexual Orientation Straight 12/14/2019 1: 45 PM CDT Last Filed Vital Signs Vital Sign Reading Time Taken Comments Blood Pressure 116/66 02/01/2025 6:39 PM CDT Pulse 100 02/01/2025 6:39 PM CDT Temperature 36.3 C (97.4 F) 02/01/2025 6:39 PM CDT Respiratory Rate 18 02/01/2025 6:39 PM CDT Oxygen Saturation 99% 02/01/2025 6:39 PM CDT Inhaled Oxygen Concentration - - Weight 74.8 kg (165 lb) 02/01/2025 6:39 PM CDT Height 167.6 cm (5' 6) 02/01/2025 6:39 PM CDT Body Mass Index 26.63 02/01/2025 6:39 PM CDT Plan of Treatment Upcoming Encounters Date Type Department Care Team (Late st Contact Info) Description 02/28/2025 7:30 AM CDT Office Visit [facility] [address] [place] [address] Jennifer Wylie APRN [address] [place] [address] 02/28/2025 9:40 AM CDT Appointment [facility] [place] [address] [place] [address] Lennox Weston MD [address] [place] [address] Health Maintenance Due Date Last Done Comments MMR VACCINES (1 of 1 - Standard series) 1971 YEARLY WELLNESS EXAM 10/28/1975 HEPATITIS B VACCINES (1 of 3 - 19+ 3-dose series) 10/28/1991 Diabetic Eye Exam 07/15/2021 07/15/2020 (Do ne/Outside Provider) Lung Cancer Screening 2022 Zoster Vaccine (Recombinant Vaccine) (1 of 2) 2022 DIABETIC FOOT EXAM 09/21/2024 09/22/2023, 1 06/10/2021, 04/09/2021, Additional history exists URINARY MICROALBUMIN IN DIABETES 09/21/2024 09/22/2023, 04/13/2022, 04/09/2021, Additional history exists Influenza Vaccine 01/05/2025 03/15/2024, 04/10/2022 COVID-19 Immunization ( season) 2025 05/14/2021, 10/12/2020, 10/12/2020, Additional history exists Diabetes follow-up every 6 months by HEMOGLOBIN A1C 06/08/2025 12/06/2024, 02/16/2024, 09/22/2023, Additional history exists DEPRESSION SCREENING 2025 2024, 06/22/2024, 03/30/2024, Additional history exists BMI Above/Below Normal Parameters 12/06/2025 12/06/2024, 12/06/2024, 06/22/2024, Additional history exists LIPID TESTING 12/06/2025 12/06/2024, 02/05, 09/22/2023, Additional history exists BREAST CANCER SCREENING 01/29/2026 01/30/20, 08/20/2023, 09/24/2022, Additional history exists Colon Cancer Screening 01/21/2028 01/20/2018 ADULT TETANUS 06/24/2034 06/24/2024, 08/08/2009 Hepatitis C Screening ages 18 to 79 once Completed 02/07/2020, 02/06/2020, 02/01/2020, Additional history exists HIV Screening Completed 03/14/2021 Pneumococcal Vaccine: Peds to 50 & At-Risk Patients Discontinued 03/15/2024, 01/31/2020 CERVICAL CANCER SCREENING Discontinued HEPATITIS A VACCINES Aged Out No long er eligible based on patient's age to complete this topic HIB VACCINES Aged Out No longer eligi ble based on patient's age to complete this topic HPV VACCINES Aged Out No longer eligi ble based on patient's age to complete this topic IPV VACCINES Aged Out No longer eligi ble based on patient's age to complete this topic MENINGOCOCCAL VACCINE Aged Out No tommy rosalie eligible based on patient's age to complete this topic Meningococcal B Vaccine Aged Out No l onger eligible based on patient's age to complete this topic ROTAVIRUS VACCINES Aged Out No longer eligible based on patient's age to complete this topic Procedures Procedure Name Priority Date/Time Associated Diagnosis Comments MAMMO SCREENING BILATERAL - DIGITAL W JOHN Routine 01/29/2025 12:56 PM CDT Visit for screening mammogram XR ELBOW LEFT 2 VIEWS Routine 01/12/2025 10:24 AM CDT Other closed fracture of proximal end of left ulna, initial encounter XR WRIST LEFT COMPLETE 3 + VIEWS Routine 12/29/2024 12:06 PM CDT Elbow abrasion, left, sequela XR ELBOW LEFT 2 VIEWS Routine 12/29/2024 11:45 AM CDT Closed nondisplaced fracture of lateral malleolus of right fibula, initial encounter XR ELBOW LEFT MIN 3 VIEWS STAT 12/20/2024 7:36 AM CDT XR FOREARM LEFT 2 VIEWS STAT 12/20/2024 7:36 AM CDT DRUG SCREEN MEDICAL Routine 12/07/2024 8 :03 PM CDT URINALYSIS WITH REFLEX TO CULTURE, IF INDICATED STAT 12/07/2024 8:03 PM CDT URINE CULTURE STAT 12/07/2024 8:03 PM CDT CULTURE, BLOOD STAT 12/07/2024 8:03 PM CDT CULTURE, BLOOD STAT 12/07/2024 8:00 PM CDT EKG STAT 12/07/2024 6:59 PM CDT D-DIMER,QUANTITATIVE STAT 12/07/2024 6:59 PM CDT TSH THIRD GENERATION STAT 12/07/2024 6:59 PM CDT T4 FREE STAT 12/07/2024 6:59 PM CDT TROPONIN T STAT 12/07/2024 6:59 PM CDT MAGNESIUM STAT 12/07/2024 6:59 PM CDT LACTIC ACID, SERUM STAT 12/07/2024 6: 59 PM CDT COMPREHENSIVE METABOLIC PANEL STAT 12/07/2024 6:59 PM CDT CBC W AUTO DIFF STAT 12/07/2024 6:59 PM CDT MONITOR STRIPS 12/07/2024 6:41 PM CDT OPIATE DRUG QUANT/CONFIRM MEDICAL URINE Routine 12/06/2024 12:54 PM CDT Primary osteoarthritis of both knees Medication management Neuropathic pain THC DRUG QUANT/CONFIRM MEDICAL URINE Routine 12/06/2024 12:54 PM CDT Primary osteoarthritis of both knees Medication management Neuropathic pain POCT GLYCOSYLATED HEMOGLOBIN (HGB A1C) (CPT 96269) Routine 12/06/2024 12:53 PM CDT Type 2 diabetes mellitus without complication, without long-term current use of insulin (HCC) POCT LIPID PROFILE Routine 12/06/2024 12 :52 PM CDT Type 2 diabetes mellitus without complication, without long-term current use of insulin (HCC) Primary hypertension POCT COVID/FLU A&B/RSV (AMPLIFIED PROBE) Routine 12/06/2024 12:51 PM CDT Acute cough Head congestion Acute sore throat POCT STREP A (AMPLIFIED PROBE) Routine 12/06/2024 12:10 PM CDT Acute cough Head congestion Acute sore throat CBC W AUTO DIFF Routine 12/06/2024 12:09 PM CDT Type 2 diabetes mellitus without complication, without long-term current use of insulin (HCC) Primary hypertension COMPREHENSIVE METABOLIC PANEL Routine 12/06/2024 12:09 PM CDT Type 2 diabetes mellitus without complication, without long-term current use of insulin (HCC) Primary hypertension POCT URINE DRUG SCREEN 12 USCREEN Routine 12/06/2024 11:51 AM CDT Primary osteoarthritis of both knees Medication management MICROALBUMIN, RANDOM URINE Routine 09/22/2023 10:30 AM CDT Type 2 diabetes mellitus without complication, without long-term current use of insulin (HCC) HIV 1 AND 2 COMBO ANTIGEN/ANTIBODY Routine 03/14/2021 3:01 PM CDT Screening for HIV (human immunodeficiency virus) History of exposure to hazardous bodily fluids HEPATITIS C BY QUANT NAAT Routine 02/07/2020 2:59 PM CDT from Last 3 Months or Most Recently Relevant to Health Maintenance Results * MAMMO SCREENING BILATERAL - DIGITAL W JOHN (01/29/2025 12:56 PM CDT) Anatomical Region Laterality Modality Breast Bilateral Mammography Impressions 01/29/2025 3:32 PM CDT AND RECOMMENDATIONS: There is no mammographic evidence of malignancy. Return to Annual Screening is recommended for both breasts. ACR BI-RADS CATEGORY 2 - BENIGN INTERPRETING PHYSICIAN: Pedro Sorenson MD [address] [address] Narrative 01/29/2025 3:32 PM CDT COMPARISON: Comparison is made to prior studies. EXAM: MAMMO SCREENING BILATERAL - DIGITAL W JOHN VIEWS: Bilateral: Craniocaudal, Mediolateral oblique, Cleavage BREAST DENSITY: There are scattered areas of fibroglandular density. FINDINGS: There are no suspicious masses, calcifications or areas of architectural distortion. Benign findings noted. This exam was reviewed with the aid of CAD R2 DMV 8.7 us Jennifer K Peek WET ROLLER [facility] IMG MAMMO ORDERABLES Fin al Result * XR ELBOW LEFT 2 VIEWS (01/12/2025 10:24 AM CDT) Only the most recent of2 resultswithin the time period is included. Anatomical Region Laterality Modality Elbow Computed Radiogr aphy 01/12/2025 12:3 0 PM CDT Impressions 01/12/2025 12:31 PM CDT FINDINGS/IMPRESSION: Normal alignment on the 2 views provided. There is chronic deformity of the proximal radius, presumably from an old fracture. No acute fracture appreciated. No joint effusion. Stable exam. Narrative 01/12/2025 12:31 PM CDT EXAM: 2 view left elbow COMPARISON: Left elbow 12/29/2024 HISTORY: Left elbow pain. Other fracture of upper and of the left ulna, initial encounter for close fracture. Procedure Note Juarez Lu MD - 01/12/2025 EXAM: 2 view left elbow COMPARISON: Left elbow 12/29/2024 HISTORY: Left elbow pain. Other fracture of upper and of the left ulna,initial encounter for close fracture. FINDINGS/IMPRESSION: Normal alignment on the 2 views provided. There is chronic deformity ofthe proximal radius, presumably from an old fracture. No acute fracture appreciated. No joint effusion. Stable exam. us Scot Bertram GRAY IMG DIAG ORDERABLES Final Result * XR WRIST LEFT COMPLETE 3 + VIEWS (12/29/2024 12:06 PM CDT) Anatomical Region Laterality Modality Wrist Computed Radiogr aphy 12/29/2024 1:33 PM CDT Narrative 12/29/2024 1:34 PM CDT XR WRIST LEFT COMPLETE 3 + VIEWS HISTORY: pain COMPARISON: None FINDINGS: Frontal, lateral and oblique radiographs of the left wrist were provided for review. There are mild degenerative changes involving the radiocarpal joint. No acute fracture or dislocation seen. Procedure Note Mack Starkey MD - 12/29/2024 XR WRIST LEFT COMPLETE 3 + VIEWS HISTORY: pain COMPARISON: None FINDINGS: Frontal, lateral and oblique radiographs of the left wrist were providedfor review. There are mild degenerative changes involving the radiocarpal joint. No acute fracture or dislocation seen. us Scot Bertram Tolentino MD [facility] IMG DIAG ORDERABLES Final Result * XR FOREARM LEFT 2 VIEWS (12/20/2024 7:36 AM CDT) Anatomical Region Laterality Modality Forearm Radiographic Daija ging 12/20/2024 8:04 AM CDT Impressions 12/20/2024 8:06 AM CDT FINDINGS/IMPRESSION: AP and lateral views are obtained. Fracture fragment at the medial aspect of the proximal ulna on the AP view was described on the elbow and is of uncertain acuity although may be acute. There is also linear lucency projected over the radial head which was not appreciated on the dedicated elbow. This raises the possibility of a nondisplaced acute radial head fracture. Deformity of the radial head is presumably from an old healed fracture. The remainder of the radius and ulna are intact.. Narrative 12/20/2024 8:06 AM CDT PROCEDURE: AP and lateral left forearm COMPARISON: No comparison HISTORY: Fall, initial encounter Procedure Note Juarez Lu MD - 12/20/2024 PROCEDURE: AP and lateral left forearm COMPARISON: No comparison HISTORY: Fall, initial encounter FINDINGS/IMPRESSION: AP and lateral views are obtained. Fracturefragment at the medial aspect of the proximal ulna on the AP view was described on theelbow and is of uncertain acuity although may be acute. There is also linearlucency projected over the radial head which was not appreciated on the dedicatedelbow. This raises the possibility of a nondisplaced acute radial headfracture. Deformity of the radial head is presumably from an old healed fracture.The remainder of the radius and ulna are intact.. Bryson Garcia MD [facility] IM DIAG ORDERABLES Fin al Result * XR ELBOW LEFT MIN 3 VIEWS (12/20/2024 7:36 AM CDT) Anatomical Region Laterality Modality Elbow Radiographic Daija ging 12/20/2024 8:02 AM CDT Impressions 12/20/2024 8:04 AM CDT FINDINGS/IMPRESSION: AP, lateral and oblique views are obtained. There is a new bony fragment at the medial aspect of the proximal ulna seen on the AP view which is of uncertain acuity although could represent a small acute fracture fragment. Otherwise, no acute fracture appreciated. Stable appearing deformity of the radial head which may be due to an old healed fracture. There is a chronic well-corticated bony fragment just distal or inferior to the medial humeral epicondyle which is stable. There is probably a small stable chronic joint effusion.. Narrative 12/20/2024 8:04 AM CDT PROCEDURE: Three views left elbow COMPARISON: Left elbow June 24, 2024 HISTORY: Fall, left elbow pain Procedure Note Juarez Lu MD - 12/20/2024 PROCEDURE: Three views left elbow COMPARISON: Left elbow June 24, 2024 HISTORY: Fall, left elbow pain FINDINGS/IMPRESSION: AP, lateral and oblique views are obtained. There shereen new bony fragment at the medial aspect of the proximal ulna seen on the APview which is of uncertain acuity although could represent a small acutefracture fragment. Otherwise, no acute fracture appreciated. Stable appearingdeformity of the radial head which may be due to an old healed fracture. There shereen chronic well-corticated bony fragment just distal or inferior to themedial humeral epicondyle which is stable. There is probably a small stablechronic joint effusion.. us Bryson Garcia MD [facility] DIAG ORDERABLES Fin al Result * DRUG SCREEN MEDICAL (12/07/2024 8:03 PM CDT) THC NEGATIVE [facility] Cocaine Metabolites Urine NEGATIVE [facility] Opiate Screen, Urine NEGATIVE [facility] Benzodiazepine Screen, Urine NEGATIVE [facility] Barbiturate Screen, Urine NEGATIVE [facility] Amphetamine/Metham ph Screen, Urine NEGATIVE [facility] Phencyclidine Screen Urine NEGATIVE [facility] Drug Screen Comment: SEE NOTES [facility] Comment: THIS IS A URINE SCREEN. ONLY THOSE DRUGS LISTED ARE BEING TESTED. ALL POSITIVES ARE PRESUMPTIVE (UNCONFIRMED). FALSE POSITIVES AND NEGATIVES CAN OCCUR. USE FOR MEDICAL PURPOSES ONLY. THE ORDERING PHYSICIAN CAN CONTACT THE CHEMISTRY DEP'T ([phone]) WITHIN 3 DAYS OF RECEIPT IF CONFIRMATION IS NEEDED. USDS Cut-offs THC NEGATIVE < 50 ng/ml [facility] Comment: COCAINE NEGATIVE <300NG/ML OPIATE NEGATIVE <300NG/ML INGESTION OF 3 POPPY SEED BAGELS HAS BEEN SHOWN TO CAUSE A POSITIVE OPIATE. BENZO NEGATIVE <200NG/ML SUNDAR NEGATIVE <200NG/ML AMPHET NEGATIVE <1000NG/ML PCP NEGATIVE <25NG/ML Urine (Urine, Clean Catch Midstream) 12/07/2024 8:03 PM CDT 12/07/2024 8:11 PM CDT us Tasha Germain MD URINE ORDERABLES Final Res ult [facility] [address] [phone] * (ABNORMAL) URINALYSIS WITH REFLEX TO CULTURE, IF INDICATED (12/07/2024 8:03 PM CDT) Glucose UA NEGATIVE NEGATIVE MG/DL [facility] Comment:IN PROGRESS Protein UA 100(H) <30 MG/DL [facility] Comment:IN PROGRESS Bilirubin UA NEGATIVE NEGATIVE [facility] Comment:IN PROGRESS Urobilinogen UA 0.2 <2 MG/DL [facility] Comment:IN PROGRESS pH UA 7.0 4.6 - 8.0 [facility] Comment:IN PROGRESS Blood UA MODERATE(A) NEGATIVE [facility] Comment:IN PROGRESS Ketones UA NEGATIVE NEGATIVE MG/DL [facility] Comment:IN PROGRESS Nitrite UA NEGATIVE NEGATIVE [facility] Comment:IN PROGRESS Leukocyte Esterase UA LARGE(A) NEGATIVE [facility] Comment:IN PROGRESS UR Appearance CLOUDY(A) CLEAR [facility] Comment:IN PROGRESS Specific [place] UA 1.020 1.010 - 1.030 [facility] Comment:IN PROGRESS Color YELLOW YELLOW [facility] Comment:IN PROGRESS Site CCMS [facility] Comment, Urine Culture IN PROGRESS [facility] RBC Urine 10 to 20 <3 /HPF [facility] Comment:IN PROGRESS WBC Urine 60 to 70 <5 /HPF [facility] Comment:IN PROGRESS Bacteria FEW(A) NONE /HPF [facility] Comment:IN PROGRESS Squamous Epithelial 3 to 5 <5 /HPF [facility] Comment:IN PROGRESS Urine (Urine, Clean Catch Midstream) 12/07/2024 8:03 PM CDT 12/07/2024 8:10 PM CDT us Tasha Germain MD URINE ORDERABLES Final Res ult Performing Organization Address City/[facility] Co de Phone Number [facility] [address] [place] [address], [facility] [phone] * CULTURE, BLOOD (12/07/2024 8:03 PM CDT) Only the most recent of2 resultswithin the time period is included. Specimen Type CLOSED DRAW SYSTEM VENOUS [facility] Special Handling SUB-OPTIMAL VOLUME OF BLOOD COLLECTED [facility] Culture Result NO GROWTH 5 DAYS [facility] Status 12/13/2024 FINAL [facility] Blood (Closed Draw System Venous) 12/07/2024 8:03 PM CDT 12/07/2024 8:06 PM CDT us Tasha Germain MD MICROBIOLOGY - GENERAL ORD ERABLES Final Result Performing Organization Address City/[facility] Co de Phone Number [facility] [address] [place] [address] [facility] [address] [facility] [address] [place] [address], [facility] [phone] * URINE CULTURE (12/07/2024 8:03 PM CDT) Specimen Type [facility] Special Handling NONE Reflexed from [id number] [facility] Culture Result NO GROWTH (LESS THAN 1000 COL/ML) [facility] Status 12/09/2024 FINAL [facility] Urine, Clean Catch Midstream 12/07/2024 8:03 PM CDT 12/07/2024 8:10 PM CDT Tasha Germain MD URINE ORDERABLES Final Res ult [facility] [address] [place] [address], [facility] [phone] [facility] [address] [facility] [address] [place] [address], [facility] [phone] * TSH THIRD GENERATION (12/07/2024 6:59 PM CDT) [facility] TSH High Sensitivity 2.30 0.55 - 4.78 uIU/ML [facility] Blood 12/07/2024 6:59 PM CDT 12/07/2024 7:03 PM CDT Tasha Germain MD CHEMISTRY ORDERABLES Final Result Performing Organization Address City/[facility]/ZIP Co de Phone Number [facility] [address] [facility] [address] [place] [address], [facility] [phone] * TROPONIN T (12/07/2024 6:59 PM CDT) [facility] TROPONIN T 7 0 - 14 NG/L [facility] Blood (BLOOD) 12/07/2024 6:5 9 PM CDT 12/07/2024 7:03 PM CDT Tasha Germain MD CHEMISTRY ORDERABLES Final Result Performing Organization Address City/[facility]/ZIP Co de Phone Number [facility] [address] [facility] [address] [place] [address], [facility] [phone] * D-DIMER,QUANTITATIVE (12/07/2024 6:59 PM CDT) [facility] D-Dimer Quantitative 430 NG/ML FEU [facility] Comment: THE D-DIMER REFERENCE RANGE HAS BEEN ADJUSTED BASED ON THE AGE OF THE PATIENT. THE SENIOR PYTHON DEVELOPER'S STATED CUT-OFF VALUE FOR EXCLUSION OF VTE (BOTH PE AND DVT) IS 500 NG/ML FEU. Blood 12/07/2024 6:59 PM CDT 12/07/2024 7:26 PM CDT Tasha Germain MD HEMATOLOGY ORDERABLES Mishel figueredo Result [facility] [address] [facility] [address] [phone] * (ABNORMAL) CBC W AUTO DIFF (12/07/2024 6:59 PM CDT) Only the most recent of2 resultswithin the time period is included. White Blood Cell Count 11.2(H) 4.8 - 10.8 THOUS/uL [facility] Red Blood Cell Count 4.06(L) 4.20 - 5.40 MIL/uL [facility] Hemoglobin 12.2 12.0 - 16.0 GM/DL [facility] Hematocrit 37.6 37.0 - 47.0 % [facility] Mean Corpuscular Volume 92.6 80.0 - 94.0 FL [facility] Mean Corpuscular Hemoglobin 30.0 26.4 - 32.7 PG [facility] Mean Corpuscular Hemoglobin Conc 32.4(L) 33.0 - 37.0 G/DL [facility] Rdwcv 14.6(H) 11.5 - 14.5 % [facility] Rdwsd 50.2(H) 37.0 - 50.0 FL [facility] Platelet Count 264 130 - 400 THOUS/uL [facility] Mean Platelet Volume 12.0(H) 7.2 - 11.1 FL [facility] Nucleated Red Blood Cells 0.0 0.0 /100 WBC'S [facility] Abs NRBC 0.0 0.0 THOUS/uL [facility] Neutrophils 53.5 42.2 - 75.2 % [facility] Lymphs 35.8 20.5 - 51.1 % [facility] Monocytes 7.5 1.7 - 9.3 % [facility] Eos 2.5 1.0 - 3.0 % [facility] Basos 0.4 0.0 - 2.0 % [facility] Neutrophils Absolute Count 6.0 1.7 - 8.3 THOUS/uL [facility] Lymphocytes Absolute Count 4.0 0.8 - 5.3 THOUS/uL [facility] Monocytes Absolute Count 0.8 0.1 - 1.0 THOUS/uL [facility] Eosinophils Absolute Count 0.3 0.0 - 0.3 THOUS/uL [facility] Basophils Absolute Count 0.1 0.0 - 0.2 THOUS/uL [facility] Imm Gran 0.3 0.0 - 0.4 % [facility] Comment: IG PARAMETER REFLECTS THE COMBINATION OF METAMYELOCYTES, MYELOCYTES, AND PROMYELOCYTES. Abs Imm Gran 0.03 0.00 - 0.04 THOUS/uL [facility] Blood 12/07/2024 6:59 PM CDT 12/07/2024 7:03 PM CDT us Tasha Germain MD HEMATOLOGY ORDERABLES Mishel l Result Performing Organization Address City/[facility] Co de Phone Number [facility] [address] [facility] [address] [phone] * T4 FREE (12/07/2024 6:59 PM CDT) Free T4 1.22 0.92 - 1.68 NG/DL [facility] Blood 12/07/2024 6:59 PM CDT 12/07/2024 7:03 PM CDT us Tasha Germain MD CHEMISTRY ORDERABLES Final Result Performing Organization Address City/[facility] Co de Phone Number [facility] [address] [place] [address], [facility] [phone] * MAGNESIUM (12/07/2024 6:59 PM CDT) Magnesium 2.0 1.5 - 2.6 MG/DL [facility] Blood 12/07/2024 6:59 PM CDT 12/07/2024 7:03 PM CDT Tasha Germain MD CHEMISTRY ORDERABLES Final Result Performing Organization Address City/[facility]/ZIP Co de Phone Number [facility] [address] [facility] [address] [place] [address], [facility] [phone] * (ABNORMAL) LACTIC ACID, SERUM (12/07/2024 6:59 PM CDT) Lactate 2.4(H) 0.5 - 2.2 MMOL/L [facility] Blood 12/07/2024 6:59 PM CDT 12/07/2024 7:05 PM CDT Tasha Germain MD CHEMISTRY ORDERABLES Final Result Performing Organization Address City/[facility] Co de Phone Number [facility] [address] [facility] [address] [place] [address], [facility] [phone] * (ABNORMAL) COMPREHENSIVE METABOLIC PANEL (12/07/2024 6:59 PM CDT) Only the most recent of2 resultswithin the time period is included. Glucose 142(H) 70 - 99 MG/DL [facility] BUN 10 8 - 23 MG/DL [facility] Creatinine 1.0 0.4 - 1.1 MG/DL [facility] Sodium 141 136 - 145 MMOL/L [facility] Potassium 3.8 3.5 - 5.4 MMOL/L [facility] Chloride 105 98 - 107 MMOL/L [facility] Co2 22 20 - 33 MMOL/L [facility] Calcium 9.6 8.7 - 10.4 MG/DL [facility] Protein Total 6.4 6.0 - 8.2 G/DL [facility] Albumin 3.5 3.4 - 4.8 G/DL [facility] A/G Ratio 1.2 0.8 - 2.0 [facility] Bilirubin, Total 0.3 0.3 - 1.2 MG/DL [facility] AST(SGOT) 87(H) 0 - 39 U/L [facility] Alkaline Phosphatase 92 25 - 130 U/L [facility] Alt (SGPT) 58(H) 7 - 35 U/L [facility] Est GFR 65(L) >90 ML/MIN/1. 73sq.m [facility] GFR Comment Reported eGFR is based on the CKD-EPI 2020 equation that does not use a race coefficient. [facility] Comment: eGFR declines with age, even in people without kidney disease. SEE CHART BELOW FOR AVERAGE ESTIMATED eGFR BASED ON AGE. AGE(YEARS) AVERAGE ESTIMATED GFR <60 >90 60-69 85 >70 75 Anion Gap 14 7 - 14 MMOL/L [facility] Blood 12/07/2024 6:59 PM CDT 12/07/2024 7:03 PM CDT us Tasha Germain MD CHEMISTRY ORDERABLES Final Result [facility] [address] [facility] [address] [place] [address], [facility] [phone] * EKG (12/07/2024 6:59 PM CDT) Q-T Interval 506 ms RAD/CARD 12/07/2024 7:04 PM CDT Narrative RAD/CARD - 12/09/2024 6:38 PM CDT Ventricular Rate : 65 BPM Atrial Rate : 65 BPM P-R Interval : 144 ms QRS Duration : 80 ms Q-T Interval : 506 ms QTC Calculation(Bazett) : 526 ms Calculated P [place] : 23 degrees Calculated R [place] : 29 degrees T [place] : 43 degrees Diagnosis : Normal sinus rhythm T wave abnormality, consider anterior ischemia Prolonged QT Abnormal ECG When compared with ECG of 18-Sep-2024 20:31, PREVIOUS ECG IS PRESENT Procedure Note Bryson Chapa MD - 12/09/2024 Ventricular Rate : 65 BPM Atrial Rate : 65 BPM P-R Interval : 144 ms QRS Duration : 80 ms Q-T Interval : 506 ms QTC Calculation(Bazett) : 526 ms Calculated P [place] : 23 degrees Calculated R [place] : 29 degrees T [place] : 43 degrees Diagnosis : Normal sinus rhythm T wave abnormality, consider anterior ischemia Prolonged QT Abnormal ECG When compared with ECG of 18-Sep-2024 20:31, PREVIOUS ECG IS PRESENT Tasha Germain MD ECG ORDERABLES Final Resu lt RAD/CARD * MONITOR STRIPS (12/07/2024 6:41 PM CDT) Tasha Germain MD TRANSCRIPTIONS Final Resu lt * THC DRUG QUANT/CONFIRM MEDICAL URINE (12/06/2024 12:54 PM CDT) Pathologist [facility] THC GC/MS Conf 50 ng/mL [facility] Comment: (NOTE) INTERPRETIVE INFORMATION: THC Metabolite, Urine, Quantitative Methodology: Quantitative Liquid Chromatography-Tandem Mass Spectrometry Positive cutoff: 15 ng/mL For medical purposes only; not valid for forensic use. The drug analyte detected in this assay, 9-carboxy THC, is a metabolite of [id number] (THC). Detection of 9-carboxy THC suggests use of, or exposure to, a product containing THC. This test cannot distinguish between prescribed or non-prescribed forms of THC, nor can it distinguish between active or passive use. The 9-carboxy THC metabolite can be detected in urine for several weeks. Normalization of results to creatinine concentration can help document elimination or suggest recent use, when specimens are collected at least one week apart. This test was developed and its performance characteristics determined by [employer] [employer]. It has not been cleared or approved by the [place] Food and Drug Administration. This test was performed in a CLIA certified laboratory and is intended for clinical purposes. Performed By: [facility] [address] [place] [address] Roll Trucker: Eron Lindquist MD, PhD CLIA Number: [id number] Urine 12/06/2024 12:5 4 PM CDT 12/06/2024 3:16 PM CDT Jennifer Wylie WET ROLLER URINE ORDERABLES Final Resul t [facility] [address] [place] [address] * OPIATE DRUG QUANT/CONFIRM MEDICAL URINE (12/06/2024 12:54 PM CDT) Opiate UR, Hydrocodone <20 ng/mL [facility] Opiates, UR Oxycodone <20 ng/mL [facility] Opiates UR, Oxymorphone <20 ng/mL [facility] Opiates, UR Hydromorphone <20 ng/mL [facility] Opiates, UR Codeine <20 ng/mL [facility] Opiates, UR Morphine <20 ng/mL [facility] Opiates UR 6 AM <10 ng/mL [facility] Comment: (NOTE) INTERPRETIVE INFORMATION: Opiates, Urine, Quantitative Methodology: Quantitative Liquid Chromatography-Tandem Mass Spectrometry Positive cutoff: 20 ng/mL except as specified below 6-acetylmorphine 10 ng/mL For medical purposes only; not valid for forensic use. Identification of specific drug(s) taken by specimen donor is problematic due to common metabolites, some of which are prescription drugs themselves. The absence of expected drug(s) and/or drug metabolite(s) may indicate non-compliance, inappropriate timing of specimen collection relative to drug administration, poor drug absorption, diluted/adulterated urine, or limitations of testing. All drug analytes covered are in the non-glucuronidated (free) forms. The concentration value must be greater than or equal to the cutoff to be reported as positive. A very small amount of an unexpected drug analyte in the presence of a large amount of an expected drug analyte may reflect pharmaceutical impurity. Interpretive questions should be directed to the laboratory. This test was developed and its performance characteristics determined by [employer]. It has not been cleared or approved by the [place] Food and Drug Administration. This test was performed in a CLIA certified laboratory and is intended for clinical purposes. Opiates,Noroxycodon e UR <20 ng/mL [facility] Opiates,Noroxymorph one UR <20 ng/mL [facility] Opiates,Norhydrocod one UR <20 ng/mL [facility] Comment: (NOTE) Performed By: [facility] [address] [place] [address] Roll Trucker: Eron Lindquist MD, PhD CLIA Number: [id number] Urine 12/06/2024 12:5 4 PM CDT 12/06/2024 3:16 PM CDT Jennifer Osmin Wylie WET ROLLER URINE ORDERABLES Final Resul t Performing Organization Address City/[facility] Co de Phone Number [address] * POCT GLYCOSYLATED HEMOGLOBIN (HGB A1C) (CPT 93107) (12/06/2024 12:53 PM CDT) Hemoglobin A1C 6.0 % [facility] 12/06/2024 12:5 3 PM CDT Jennifer K Mikeek WET ROLLER POINT OF CARE TEST ORDERABLE S Final Result Performing Organization Address City/[facility] Co de Phone Number [facility] [address] [place] [address], [place] * (ABNORMAL) POCT LIPID PROFILE (12/06/2024 12:52 PM CDT) Cholesterol 183 mg/dL [facility] HDL 26 mg/dl [facility] Triglycerides 153 mg/dL DC [facility] LDL Cholesterol 127 mg/dL [facility] Non-HDL Cholesterol 157(A) <=120 mg/dL [facility] Chol/HDL Ratio 7.0 >5 Cholester ol/HDL DC [facility] 12/06/2024 12:5 2 PM CDT Jennifer Wylie APRN POINT OF CARE TEST ORDERABLE S Final Result Performing Organization Address City/[facility]/ZIP Co de Phone Number [facility] [address] * POCT COVID/FLU A&B/RSV (AMPLIFIED PROBE) (12/06/2024 12:51 PM CDT) SARS-COV-2 By PCR Not Detected Not Detected [facility] Flu A Negative Negative [facility] Flu B Negative Negative DC [facility] RSV Negative Negative DC [facility] Nasopharyngeal SPECIMEN FROM NASOPHARYNGEAL STRUCTURE / Unknown 12/06/2024 12:51 PM CDT Jennifer Wylie APRN POINT OF CARE TEST ORDERABLE S Final Result Performing Organization Address City/[facility]/ZIP Co de Phone Number [facility] [address] * POCT STREP A (AMPLIFIED PROBE) (12/06/2024 12:10 PM CDT) STREP A Negative Negative [facility] 12/06/2024 12:1 0 PM CDT Jennifer Wylie APRN POINT OF CARE TEST ORDERABLE S Edited Result - Final Performing Organization Address City/[facility]/ZIP Co de Phone Number [facility] [address] * (ABNORMAL) POCT URINE DRUG SCREEN 12 USCREEN (12/06/2024 11:51 AM CDT) THC - Marijuana Urine, Qualitative Positive( A) Negative [facility] Panda - Cocaine Urine, Qualitative Negative Negative [facility] Morphine Scr Qual, UR Negative Negative DC [facility] Amp - Amphetamine Urine, Quantitative Negative Negative [facility] Meth - Methamphetamine Urine, Qualitative Negative Negative DC [facility] Bar - Barbituates Urine, Qualitative Negative Negative [facility] Bzo - Benzodiazepines Urine, Qualitative Negative Negative DC [facility] MDMA - Methylenedioxymethamphetami ne Urine, Qualitative Negative Negative DC [facility] Mtd - Methadone Urine, Qualitative Negative Negative [facility] Oxy - Oxycodone Urine, Qualitative Negative Negative [facility] PCP - Phencyclidine Urine, Qualitative Negative Negative [facility] Buprenorphine Scr Qual,UR Negative Negative [facility] 12/06/2024 11:5 1 AM CDT Jennifer Wylie APRN POINT OF CARE TEST ORDERABLE S Final Result Performing Organization Address [facility] Co de Phone Number [facility] [address] * MICROALBUMIN, RANDOM URINE (09/22/2023 10:30 AM CDT) Microalbumin Urine 1.5 MG/DL [facility] Comment:NO NORMAL RANGE Creatinine Urine 152 MG/DL [facility] Comment:NO NORMAL RANGE Microalbumin/Crea tinine Ratio 10 <30 MG/G [facility] Blood 09/22/2023 10:3 0 AM CDT 09/22/2023 3:08 PM CDT Jennifer Wylie APRN URINE ORDERABLES Final Resul t Performing Organization Address City/[facility] Co de Phone Number [facility] [address] [place] [address] * HIV 1 AND 2 COMBO ANTIGEN/ANTIBODY (03/14/2021 3:01 PM CDT) Pathologist [facility] HIV-1 and HIV-2 Antigen/Antibod ies NONREACTIVE (NEG) [facility] HIV Comment SEE NOTES [facility] Comment: THIS ASSAY HAS NOT BEEN FDA CLEARED OR APPROVED FOR THE SCREENING OF BLOOD OR PLASMA DONORS. TEST PERFORMED USING [employer] CURRENT METHODS FOR THE DETECTION OF HIV 1 AND/OR 2 ANTIBODIES MAY NOT DETECT ALL INFECTED INDIVIDUALS. A REACTIVE RESULT DOESN'T DISTINGUISH BETWEEN HIV-1 p24 Ag, HIV-1 Ab, HIV-2 Ab, OR HIV-1 GROUP O Ab. Blood 03/14/2021 3:01 PM CDT 03/14/2021 5:01 PM CDT us Jennifer Wylie APRN IMMUNOLOGY ORDERABLES Final Result [facility] [address] [place] [address] * HEPATITIS C BY QUANT NAAT (02/07/2020 2:59 PM CDT) Pathologist [facility] Hep C RNA by PCR, Log 7.08 log IU/mL [facility] HCV RNA Qnt PCR Interp Detected Not Detected [facility] Comment: ===REPORTABLE DISEASE=== (NOTE) INTERPRETIVE INFORMATION: HCV by Quantitative NAAT Normal range for this assay is Not Detected. The quantitative range of this assay is 10 - 100,000,000 IU/mL (1.0 - 8.0 log IU/mL). Lower limit of quantitation (LLoQ): 10 IU/mL (1.0 log IU/mL) LLoQ values do not apply to diluted specimens. A result of Not Detected does not rule out the presence of inhibitors in the patient specimen or hepatitis C virus RNA concentrations below the level of detection of the test. Care should be taken when interpreting any single viral load determination. This test should not be used for blood donor screening, associated re-entry protocols, or for screening Human Cell, Tissues and Cellular Tissue-Based Products (HCT/P). Performed by [employer], [address], [facility] [place] [address] [email or web address], Sakshi Ford MD, Lab. Director Hep C RNA PCR Quant SEE NOTES IU/mL [facility] Comment:[id number] 02/07/2020 2:59 PM CDT 02/07/2020 6:25 PM CDT Talia Phoenix NP LAB SEND OUT OR DERABLES Final Result Performing Organization Address [facility]/State/[facility] Co de Phone Number [facility] [address] [place], [place] [address] [address] [place] [address], [facility] [phone] from Last 3 Months or Most Recently Relevant to Health Maintenance Insurance [facility]CIAL SANI[place] [id number] [facility] [place] [facility] [place] [facility] [place] Advance Directives * Full Code (Latest Code Status on File) Date Activated Date Inactivated Comments 03/28/2021 12:07 PM 03/29/2021 1:09 PM Care Teams Conservation Biology Professor Relationship Specialty Start Date End Date Jennifer Wylie APRN [address] [facility] [address] [place] [address] PCP - General Nurse Practitioner-Family 02/13/19
[2025-02-18 17:10] VITALS: BP 118/82; PULSE 82; RESP 18; TEMP 36.2; O2SAT 99
[2025-02-18 18:34] VITALS: BP 103/66; PULSE 79; RESP 19; O2SAT 100
[2025-02-18 18:56] LABS: BEDSIDEPREGUCG Negative (Negative)
--- OUTSIDE RECORDS SUMMARY | 2025-02-18 18:57 | XMS_ITS | Encounter Summary ---
Author Organization [facility] Address [address] [place] [address] Care Team Providers Care Hand Shaker Name Role Phone Jennifer Wylie APRN Primary Care Provider [phone] Reason for Visit * Reason Onset Date Comments Medication Refill 04/14/2021 Encounter Details Date Type Department Care Team (Late st Contact Info) Description 04/14/2021 Pt Refill [facility] [address] [place] [phone] Jennifer Wylie APRN [address] [place] [address] Medication Refill Social History Tobacco [...] PM CDT Legal Sex Female 3:05 AM 21 DEALER Gender Identity Female 12/14/2019 1:45 PM [...] AM CDT Office Visit [facility] [address] [place] [address] Jennifer Wylie APRN [address] [place] [address] 02/28/2025 9:40 AM CDT Appointment [facility] [address] [place] [facility] [place] [address] Lennox Weston MD [address] [place] [address] documented as of this encounter Visit Diagnoses Diagnosis Anxiety Anxiety state, unspecified documented in this encounter Additional Health Concerns Infection Onset Date Last Indicated Resolved Time COVID-19 Rule-Out 07/09/2021 07/28/2021 07/23/2021 2:35 AM 21 DEALER COVID-19 Rule-Out 07/23/2021 07/23/2021 07/28/2021 1:47 PM 21 DEALER COVID-19 Rule-Out 07/28/2021 07/28/2021 07/28/2021 7:27 PM 21 DEALER COVID-19 Rule-Out 08/14/2021 08/14/2021 08/14/2021 1:31 PM 21 DEALER COVID-19 Rule-Out 08/14/2021 08/22/2021 09/05/2021 2:34 AM CDT Assessment Noted Time PHQ-9 Depression Total Score: 1 04/05/20 19 10:15 AM CDT documented as of this encounter Care Teams Hand Shaker Relationship Specialty Start Date End Date Jennifer Wylie APRN [address] [facility] [address] [place] [address] PCP - General Nurse Practitioner-Family 02/13/19 documented as of this encounter
--- OUTSIDE RECORDS SUMMARY | 2025-02-18 18:57 | XMS_ITS | Encounter Summary ---
Author Organization [facility] Address [address] [place] [address] Care Team Providers Care Fruit Grader Operator Name Role Phone Jennifer Wylie APRN Primary Care Provider [phone] Reason for Visit * Reason Onset Date Comments Medication Refill 02/03/2025 Encounter Details Date Type Department Care Team (Late st Contact Info) Description 02/03/2025 Pt [facility] [address] [place] [address] Alejandro Tolentino MD [address] [place] [address] Medication Refill Social History Tobacco Use Types Packs/Day Years Used Date Smoking Tobacco: Every Day Cigarettes 1 41.4 Started: 06/07/1983; Last attempted to quit: 03/05/2022 Smokeless Tobacco: Never Alcohol Use Standard Drinks/Week Comments Not Currently 0 (1 standard drink = 0.6 oz pur e alcohol) [facility] Utilities Answer Date Recorded In the [...] place to sleep or slept in a chcf (including now)? No 02/16/2024 Housing Stability Vital Sign Answer Viktor e Recorded In the last 12 months, was t here a time when you were not able to pay the mortgage or rent on time? No 07/12/2024 Number of Times Moved in the Last Year Not on fi le 07/12/2024 At any time in the past 12 m [facility], were you homeless or living in a chcf (including now)? No 07/12/2024 Alcohol Use Answer [...] PM CDT Legal Sex Female 3:05 AM ROBOTICS ENGINEER Gender Identity Female 12/14/2019 1:45 PM CDT [...] Description 02/28/2025 7:30 AM CDT [facility] [address] [facility] [address] [place] [phone] Jennifer Wylie APRN [address] [facility] [address] [place] [address] 02/28/2025 9:40 AM CDT Appointment [facility] [address] [place] [address] Lennox Weston MD [address] [place] [address] documented as of this encounter Visit Diagnoses Diagnosis Other closed fracture of proximal end of left ulna, initial encounter documented in this encounter Additional Health Concerns Assessment Noted Time PHQ-9 Depression Total Score: 7 09/29/19 24 7:52 AM CDT documented as of this encounter Care Teams Fruit Grader Operator Relationship Specialty Start Date End Date Jennifer Wylie APRN [address] [facility] [address] [place] [address] PCP - General Nurse Practitioner-Family 02/13/19 documented as of this encounter
--- OUTSIDE RECORDS SUMMARY | 2025-02-18 18:57 | XMS_ITS | Encounter Summary ---
Author Organization [facility] Address [address] [place] [address] Care Team Providers Care Professor Of Musicology Name Role Phone Jennifer Wylie APRN Primary Care Provider [phone] Reason for Visit * Reason Onset Date Comments Medication Refill 07/05/2023 Encounter Details Date Type Department Care Team (Late st Contact Info) Description 07/05/2023 Pt Refill [facility] [address] [place] [phone] Jennifer Wylie APRN [address] [place] [address] Medication Refill Social History Tobacco [...] place to sleep or slept in a group home (including now)? 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 AIR QUALITY SPECIALIST Gender Identity Female 12/14/2019 1:45 PM [...] appt: 07/22/23 RAQUEL REVIEWED REQUEST # : [id number] LAST FILL:06/05/23 DUE ON: 07/05/23 QUALITY SPECIALIST documented in this encounter Plan of Treatment Upcoming Encounters Date Type Department Care Team (Late st Contact Info) Description 02/28/2025 7:30 AM CDT Office Visit [facility] [address] [facility] [address] [place] [address] Jennifer Wylie APRN [address] [facility] [address] [place] [address] 02/28/2025 9:40 AM CDT Appointment [facility] [address] [place] [address] Lennox Weston MD [address] [place] [address] documented as of this encounter Visit Diagnoses Diagnosis Primary osteoarthritis of both knees Primary localized osteoarthrosis, lower leg documented in this encounter Additional Health Concerns Assessment Noted Time PHQ-9 Depression Total Score: 0 03/09/20 22 5:06 PM CDT documented as of this encounter Care Teams Professor Of Musicology Relationship Specialty Start Date End Date Jennifer Wylie APRN [address] [address] PCP - General Nurse Practitioner-Family 02/13/19 documented as of this encounter
--- OUTSIDE RECORDS SUMMARY | 2025-02-18 18:57 | XMS_ITS | Encounter Summary ---
Author Organization [facility] Address [address] [place] [address] Care Team Providers Care Geothermal Production Manager Name Role Phone Jennifer Wylie APRN Primary Care Provider [phone] Reason for Visit * Reason Onset Date Comments Medication Refill 09/14/2024 Encounter Details Date Type Department Care Team (Late st Contact Info) Description 09/14/2024 Pt Refill [facility] [address] [place] [phone] Jennifer Wylie APRN [address] [place] [address] Medication Refill Social History Tobacco Use Types Packs/Day Years Used Date Smoking Tobacco: Every Day Cigarettes 1 41.4 Started: 06/07/1983; Last attempted to quit: 03/05/2022 Smokeless Tobacco: Never Alcohol Use Standard Drinks/Week Comments Never 0 (1 standard drink = 0.6 oz pur e alcohol) [facility] Utilities Answer Date Recorded In the past [...] time in the past 12 m [facility], were you homeless or living in a [...] PM CDT Legal Sex Female 3:05 AM INTELLIGENCE OPERATIONS SPECIALIST Gender Identity Female 12/14/2019 1:45 PM [...] Description 02/28/2025 7:30 AM CDT Office Visit [facility] [address] [facility] [address] [place] [phone] Jennifer Wylie APRN [address] [facility] [address] [place] [address] 02/28/2025 9:40 AM CDT Appointment [facility] [address] [place] [address] Lennox Weston MD [address] [place] [address] documented as of this encounter Visit Diagnoses Diagnosis Type 2 diabetes mellitus without complication, without long-term current use of insulin (HCC) documented in this encounter Additional Health Concerns Assessment Noted Time PHQ-9 Depression Total Score: 7 09/29/19 24 7:52 AM CDT documented as of this encounter Care Teams Geothermal Production Manager Relationship Specialty Start Date End Date Jennifer Wylie APRN [address] [facility] [address] [place] [address] PCP - General Nurse Practitioner-Family 02/13/19 documented as of this encounter
--- OUTSIDE RECORDS SUMMARY | 2025-02-18 18:57 | XMS_ITS | Encounter Summary ---
Author Organization [facility] Address [address] [place] [address] Care Team Providers Care Computer Networking Instructor Name Role Phone Jennifer Wylie APRN Primary Care Provider [phone] Reason for Visit * Reason Onset Date Comments Medication Refill 07/19/2024 Encounter Details Date Type Department Care Team (Late st Contact Info) Description 07/19/2024 Pt Refill [facility] [address] [place] [phone] Jennifer Wylie APRN [address] [place] [address] Medication Refill Social History Tobacco Use Types Packs/Day Years Used Date Smoking Tobacco: Every Day Cigarettes 1 41.4 Started: 06/07/1983; Last attempted to quit: 03/05/2022 Smokeless Tobacco: Never Alcohol Use Standard Drinks/Week Comments Never 0 (1 standard drink = 0.6 oz pur e alcohol) [facility] Utilities Answer Date Recorded In the [...] place to sleep or slept in a skilled nursing (including now)? No 02/16/2024 Housing Stability Vital Sign Answer Viktor e Recorded In the last 12 months, was t here a time when you were not able to pay the mortgage or rent on time? No 07/12/2024 Number of Times Moved in the Last Year Not on fi le 07/12/2024 At any time in the past 12 m [facility], were you homeless or living in a skilled nursing (including now)? 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 Gender Identity Female 12/14/2019 1:45 PM CDT [...] Description 02/28/2025 7:30 AM CDT Office Visit [facility] [address] [facility] [address] [place] [address] Jennifer Wylie APRN [address] [facility] [address] [place] [address] 02/28/2025 9:40 AM CDT Appointment [facility] [address] [place] [address] Lennox Weston MD [address] [place] [address] documented as of this encounter Visit Diagnoses Diagnosis Muscle spasm Spasm of muscle documented in this encounter Additional Health Concerns Assessment Noted Time PHQ-9 Depression Total Score: 7 09/29/19 24 7:52 AM CDT documented as of this encounter Care Teams Computer Networking Instructor Relationship Specialty Start Date End Date Jennifer Wylie APRN [address] [facility] [address] [place] [address] PCP - General Nurse Practitioner-Family 02/13/19 documented as of this encounter
--- OUTSIDE RECORDS SUMMARY | 2025-02-18 18:57 | XMS_ITS | Encounter Summary ---
Author Organization [facility] Address [address] [place] [address] Care Team Providers Care Pole Climber Name Role Phone Jennifer Wylie APRN Primary Care Provider [phone] Reason for Visit * Reason Onset Date Comments Medication Refill 10/16/2023 Encounter Details Date Type Department Care Team (Late st Contact Info) Description 10/16/2023 Pt Refill [facility] [address] [place] [phone] Jennifer Wylie APRN [address] [place] [address] Medication Refill Social History Tobacco [...] place to sleep or slept in a m[facility] (including now)? 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 ARTISTS' BOOKING REPRESENTATIVE Gender Identity Female 12/14/2019 1:45 PM CDT [...] Description 02/28/2025 7:30 AM CDT Office Visit [facility] [address] [place] [address] Jennifer Wylie, MEAT MOLDER [address] [place] [address] 02/28/2025 9:40 AM CDT Appointment [facility] [address] [place] [address] Lennox Weston MD [address] [place] [address] documented as of this encounter Visit Diagnoses Diagnosis Type 2 diabetes mellitus without complication, without long-term current use of insulin (HCC) documented in this encounter Additional Health Concerns Assessment Noted Time PHQ-9 Depression Total Score: 7 09/29/19 24 7:52 AM CDT documented as of this encounter Care Teams Pole Climber Relationship Specialty Start Date End Date Jennifer Wylie APRN [address] [facility] [address] [place] [address] PCP - General Nurse Practitioner-Family 02/13/19 documented as of this encounter
--- OUTSIDE RECORDS SUMMARY | 2025-02-18 18:57 | XMS_ITS | Encounter Summary ---
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 Gender Identity Female 12/14/2019 1:45 PM CDT [...] [facility] [address] [place] [address] Jennifer Wylie APRN [address] [place] [address] 02/28/2025 9:40 AM CDT Appointment [facility] [address] [place] [address] Lennox Weston MD [address] [place] [address] documented as of this encounter Visit Diagnoses Diagnosis Essential hypertension Unspecified essential hypertension documented in this encounter Additional Health Concerns Infection Onset Date Last Indicated Resolved Time COVID-19 Rule-Out 03/28/2021 03/28/2021 03/28/2021 5:25 PM CDT COVID-19 Rule-Out 07/09/2021 07/28/2021 07/23/2021 2:35 AM AUTOMOTIVE SALES EXECUTIVE COVID-19 Rule-Out 07/23/2021 07/23/2021 07/28/2021 1:47 PM AUTOMOTIVE SALES EXECUTIVE COVID-19 Rule-Out 07/28/2021 07/28/2021 07/28/2021 7:27 PM AUTOMOTIVE SALES EXECUTIVE COVID-19 Rule-Out 08/14/2021 08/14/2021 08/14/2021 1:31 PM AUTOMOTIVE SALES EXECUTIVE COVID-19 Rule-Out 08/14/2021 08/22/2021 09/05/2021 2:34 AM CDT Assessment Noted Time PHQ-9 Depression Total Score: 1 04/05/20 10:15 AM CDT documented as of this encounter Care Teams Electrical Software Engineer Relationship Specialty Start Date End Date Jennifer Wylie APRN [address] [facility] [address] [place] [address] PCP - General Nurse Practitioner-Family 02/13/19 documented as of this encounter
--- OUTSIDE RECORDS SUMMARY | 2025-02-18 18:57 | XMS_ITS | Encounter Summary ---
Author Organization [facility] Address [address] [place] [address] Care Team Providers Care Recreation Facility Manager Name Role Phone Jennifer Wylie APRN Primary Care Provider [phone] Reason for Visit * Reason Onset Date Comments Medication Refill 08/09/2020 Encounter Details Date Type Department Care Team (Late st Contact Info) Description 08/09/2020 Pt Refill [facility] [address] [place] [phone] Jennifer Wylie APRN [address] [place] [address] Medication Refill Social History Tobacco [...] PM CDT Legal Sex Female 3:05 AM PRINTED CIRCUIT BOARD 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 No / Unsure 08/01/2020 7:33 AM PRINTED CIRCUIT BOARD DESIGNER documented as of this encounter Plan of Treatment Upcoming Encounters Date Type Department Care Team (Late st Contact Info) Description 02/28/2025 7:30 AM CDT [facility] [address] [place] [address] Jennifer Wylie APRN [address] [place] [address] 02/28/2025 9:40 AM CDT Appointment [facility] [address] [place] [address] Lnenox Weston MD [address] [place] [address] documented as of this encounter Visit Diagnoses Diagnosis Primary osteoarthritis of both knees Primary localized osteoarthrosis, lower leg documented in this encounter Additional Health Concerns Infection Onset Date Last Indicated Resolved Time COVID-19 Rule-Out 03/28/2021 03/28/2021 03/28/2021 5:25 PM CDT COVID-19 Rule-Out 07/09/2021 07/28/2021 07/23/2021 2:35 AM PRINTED CIRCUIT BOARD DESIGNER COVID-19 Rule-Out 07/23/2021 07/23/2021 07/28/2021 1:47 PM PRINTED CIRCUIT BOARD DESIGNER COVID-19 Rule-Out 07/28/2021 07/28/2021 07/28/2021 7:27 PM PRINTED CIRCUIT BOARD DESIGNER COVID-19 Rule-Out 08/14/2021 08/14/2021 08/14/2021 1:31 PM PRINTED CIRCUIT BOARD DESIGNER COVID-19 Rule-Out 08/14/2021 08/22/2021 09/05/2021 2:34 AM CDT Assessment Noted Time PHQ-9 Depression Total Score: 1 04/05/20 10:15 AM CDT documented as of this encounter Care Teams Recreation Facility Manager Relationship Specialty Start Date End Date Peek, Jennifer K, REN [address] [facility] [address] [place] [address] PCP - General Nurse Practitioner-Family 02/13/19 documented as of this encounter
--- OUTSIDE RECORDS SUMMARY | 2025-02-18 18:57 | XMS_ITS | Encounter Summary ---
Author Organization [facility] Address [address] [place] [address] Care Team Providers Care Welder Tack Name Role Phone Jennifer Wylie APRN Primary Care Provider [phone] Reason for Visit * Reason Onset Date Comments Medication Refill 05/05/2021 Encounter Details Date Type Department Care Team (Late st Contact Info) Description 05/05/2021 Pt Refill [facility] [address] [place] [phone] Jennifer Wylie APRN [address] [place] [address] Medication Refill Social History Tobacco [...] PM CDT Legal Sex Female 3:05 AM SUBSTATION MAINTENANCE TECHNICIAN Gender Identity Female 12/14/2019 1:45 PM [...] [place] [address] [place] [address] Jennifer Wylie APRN [address] [place] [address] 02/28/2025 9:[address] [facility] [address] [place] [facility] [place] [address] Lennox Weston MD [address] [place] [address] documented as of this encounter Visit Diagnoses Diagnosis Muscle spasm Spasm of muscle documented in this encounter Additional Health Concerns Infection Onset Date Last Indicated Resolved Time COVID-19 Rule-Out 07/09/2021 07/28/2021 07/23/2021 2:35 AM SUBSTATION MAINTENANCE TECHNICIAN COVID-19 Rule-Out 07/23/2021 07/23/2021 07/28/2021 1:47 PM SUBSTATION MAINTENANCE TECHNICIAN COVID-19 Rule-Out 07/28/2021 07/28/2021 07/28/2021 7:27 PM SUBSTATION MAINTENANCE TECHNICIAN COVID-19 Rule-Out 08/14/2021 08/14/2021 08/14/2021 1:31 PM SUBSTATION MAINTENANCE TECHNICIAN COVID-19 Rule-Out 08/14/2021 08/22/2021 09/05/2021 2:34 AM CDT Assessment Noted Time PHQ-9 Depression Total Score: 1 04/05/20 19 10:15 AM CDT documented as of this encounter Care Teams Welder Tack Relationship Specialty Start Date End Date Jennifer Wylie APRN [address] [facility] [address] [place] [address] PCP - General Nurse Practitioner-Family 02/13/19 documented as of this encounter
--- OUTSIDE RECORDS SUMMARY | 2025-02-18 18:57 | XMS_ITS | Encounter Summary ---
Author Organization [facility] Address [address] [place] [address] Care Team Providers Care Odd Job Laborer Name Role Phone Jennifer Wylie APRN Primary Care Provider [phone] Reason for Visit * Reason Onset Date Comments Medication Refill 03/11/2022 Encounter Details Date Type Department Care Team (Late st Contact Info) Description 03/11/2022 Pt Refill [facility] [address] [place] [phone] Jennifer Wylie APRN [address] [place] [address] Medication Refill Social History Tobacco [...] PM CDT Legal Sex Female 3:05 AM 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 Gender Identity Female 12/14/2019 1:45 PM CDT [...] [facility] [address] [place] [address] Jennifer Wylie APRN [address] [place] [address] 02/28/2025 9:40 AM CDT Appointment [facility] [address] [facility] [place] [address] Lennox Weston MD [address] [place] [address] documented as of this encounter Visit Diagnoses Not on filedocumented in this encounter Additional Health Concerns Assessment Noted Time PHQ-9 Depression Total Score: 0 03/09/20 22 5:06 PM CDT documented as of this encounter Care Teams Odd Job Laborer Relationship Specialty Start Date End Date Jennifer Wylie APRN [address] [facility] [address] [place] [address] PCP - General Nurse Practitioner-Family 02/13/19 documented as of this encounter
--- OUTSIDE RECORDS SUMMARY | 2025-02-18 18:57 | XMS_ITS | Encounter Summary ---
Author Organization [facility] Address [address] [place] [address] Care Team Providers Care Barrel Bander Name Role Phone Jennifer Wylie APRN Primary Care Provider [phone] Reason for Visit * Reason Onset Date Comments Medication Refill 12/27/2020 Encounter Details Date Type Department Care Team (Late st Contact Info) Description 12/27/2020 Pt Refill [facility] [address] [place] [phone] Jennifer Wylie APRN [address] [place] [address] Medication Refill Social History Tobacco [...] PM CDT Legal Sex Female 3:05 AM PNEUDRAULIC SYSTEMS MECHANIC Gender Identity Female 12/14/2019 1:45 PM CDT [...] Description 02/28/2025 7:30 AM CDT Office Visit [facility] [address] [place] [phone] Jennifer Wylie MICE RAISER [address] [place] [address] 02/28/2025 9:40 AM CDT Appointment [facility] [address] [place] [phone] Lennox Weston MD [address] [place] [address] documented as of this encounter Visit Diagnoses Diagnosis Anxiety Anxiety state, unspecified documented in this encounter Additional Health Concerns Infection Onset Date Last Indicated Resolved Time COVID-19 Rule-Out 03/28/2021 03/28/2021 03/28/2021 5:25 PM CDT COVID-19 Rule-Out 07/09/2021 07/28/2021 07/23/2021 2:35 AM PNEUDRAULIC SYSTEMS MECHANIC COVID-19 Rule-Out 07/23/2021 07/23/2021 07/28/2021 1:47 PM PNEUDRAULIC SYSTEMS MECHANIC COVID-19 Rule-Out 07/28/2021 07/28/2021 07/28/2021 7:27 PM PNEUDRAULIC SYSTEMS MECHANIC COVID-19 Rule-Out 08/14/2021 08/14/2021 08/14/2021 1:31 PM PNEUDRAULIC SYSTEMS MECHANIC COVID-19 Rule-Out 08/14/2021 08/22/2021 09/05/2021 2:34 AM CDT Assessment Noted Time PHQ-9 Depression Total Score: 1 04/05/20 10:15 AM CDT documented as of this encounter Care Teams Barrel Bander Relationship Specialty Start Date End Date Jennifer Wylie APRN [address] [facility] [address] [place] [address] PCP - General Nurse Practitioner-Family 02/13/19 documented as of this encounter
--- OUTSIDE RECORDS SUMMARY | 2025-02-18 18:57 | XMS_ITS | Encounter Summary ---
Author Organization [facility] Address [address] [place] [address] Care Team Providers Care Tombstone Erector Name Role Phone Jennifer Wylie APRN Primary Care Provider [phone] Reason for Visit * Reason Onset Date Comments Medication Refill 11/07/2021 Encounter Details Date Type Department Care Team (Late st Contact Info) Description 11/07/2021 Pt Refill [facility] [address] [place] [phone] Jennifer Wylie APRN [address] [place] [address] Medication Refill Social History Tobacco [...] PM CDT Legal Sex Female 3:05 AM BAG BUNDLER Gender Identity Female 12/14/2019 1:45 PM CDT [...] Ramos CMA - 11/24/2021 1:27 PM CDT [facility] need update insurance information for Pricila. * Telephone Encounter - Joseline Ramos CMA - 11/24/2021 11:45 AM CDT PA Submitted using Cover my meds : [id number] BIN [id number] PCN IS grp [id number] Id [id number] Response: This request cannot be processed due to the member's coverage has terminated. Resubmit using active member ID information. * Telephone Encounter - Mary Eldridge - 11/24/2021 11:22 AM CDT PA [facility] Jardiance 25mg talets documented in this encounter Plan of Treatment Upcoming Encounters Date Type Department Care Team (Late st Contact Info) Description 02/28/2025 7:30 AM CDT Office Visit [facility] [address] [place] [phone] Jennifer Wylie APRN [address] [place] [address] 02/28/2025 9:40 AM CDT Appointment [facility] Pain [facility] [address] [place] [address] Lennox Weston MD [address] [place] [address] documented as of this encounter Visit Diagnoses Diagnosis Non-intractable vomiting with nausea, unspecified vomiting type documented in this encounter Additional Health Concerns Assessment Noted Time PHQ-9 Depression Total Score: 1 04/05/20 19 10:15 AM CDT documented as of this encounter Care Teams Tombstone Erector Relationship Specialty Start Date End Date Jennifer Wylie APRN [address] [place] [address] PCP - General Nurse Practitioner-Family 02/13/19 documented as of this encounter
--- OUTSIDE RECORDS SUMMARY | 2025-02-18 18:57 | XMS_ITS | Encounter Summary ---
Author Organization [facility] Address [address] [place] [address] Care Team Providers Care Pie Maker Name Role Phone Jennifer Wylie APRN Primary Care Provider [phone] Reason for Visit * Reason Onset Date Comments Medication Refill 10/29/2023 Encounter Details Date Type Department Care Team (Late st Contact Info) Description 10/29/2023 Pt Refill [facility] [address] [place] [phone] Jennifer Wylie APRN [address] [place] [address] Medication Refill Social History Tobacco [...] to sleep or slept in a senior living (including now)? 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 Due to fill Wednesday11/02/23 Zach Reviewed and Appropriate documented in this encounter Plan of Treatment Upcoming Encounters Date Type Department Care Team (Late st Contact Info) Description 02/28/2025 7:30 AM CDT Office Visit [facility] [address] [facility] [address] [place] [address] Jennifer Wylie APRN [address] [facility] [address] [place] [address] 02/28/2025 9:[address] [facility] Pain [facility] [address] [place] [address] Lennox Weston MD [address] [place] [address] documented as of this encounter Visit Diagnoses Diagnosis Primary osteoarthritis of both knees Primary localized osteoarthrosis, lower leg documented in this encounter Additional Health Concerns Assessment Noted Time PHQ-9 Depression Total Score: 7 09/29/19 7:52 AM CDT documented as of this encounter Care Teams Pie Maker Relationship Specialty Start Date End Date Jennifer Wylie APRN [address] [facility] [address] [place] [address] PCP - General Nurse Practitioner-Family 02/13/19 documented as of this encounter
--- OUTSIDE RECORDS SUMMARY | 2025-02-18 18:57 | XMS_ITS | Encounter Summary ---
Author Organization [facility] Address [address] [place] [address] Care Team Providers Care Liquid Center Assembler Name Role Phone Jennifer Wylie APRN Primary Care Provider [phone] Reason for Visit * Reason Onset Date Comments Medication Refill 09/18/2020 Encounter Details Date Type Department Care Team (Late st Contact Info) Description 09/18/2020 Pt Refill [facility] [address] [place] [phone] Jennifer Wylie APRN [address] [place] [address] Medication Refill Social History Tobacco [...] PM CDT Legal Sex Female 3:05 AM BEET END SUPERVISOR Gender Identity Female 12/14/2019 1:45 PM [...] [facility] [address] [place] [phone] Jennifer Wylie STUDIO ASSISTANT [address] [place] [address] 02/28/2025 9:40 AM CDT Appointment [facility] [address] [place] [phone] Lennox Weston MD [address] [place] [address] documented as of this encounter Visit Diagnoses Diagnosis Anxiety Anxiety state, unspecified documented in this encounter Additional Health Concerns Infection Onset Date Last Indicated Resolved Time COVID-19 Rule-Out 03/28/2021 03/28/2021 03/28/2021 5:25 PM CDT COVID-19 Rule-Out 07/09/2021 07/28/2021 07/23/2021 2:35 AM BEET END SUPERVISOR COVID-19 Rule-Out 07/23/2021 07/23/2021 07/28/2021 1:47 PM BEET END SUPERVISOR COVID-19 Rule-Out 07/28/2021 07/28/2021 07/28/2021 7:27 PM BEET END SUPERVISOR COVID-19 Rule-Out 08/14/2021 08/14/2021 08/14/2021 1:31 PM BEET END SUPERVISOR COVID-19 Rule-Out 08/14/2021 08/22/2021 09/05/2021 2:34 AM CDT Assessment Noted Time PHQ-9 Depression Total Score: 1 04/05/20 10:15 AM CDT documented as of this encounter Care Teams Liquid Center Assembler Relationship Specialty Start Date End Date Jennifer Wylie APRN [address] [facility] [address] [place] [address] PCP - General Nurse Practitioner-Family 02/13/19 documented as of this encounter
--- OUTSIDE RECORDS SUMMARY | 2025-02-18 18:57 | XMS_ITS | Encounter Summary ---
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 Gender Identity Female 12/14/2019 1:45 PM CDT [...] LAST OV:09/17/2022 RAQUEL REVIEWED REQUEST # : [id number] LAST FILL NORCO:10/07/2022 DUE ON:11/06/2022 LAST FILL GABAPENTIN:10/05/2022 DUE ON:11/04/2022 documented in this encounter Plan of Treatment Upcoming Encounters Date Type Department Care Team (Late st Contact Info) Description 02/28/2025 7:30 AM CDT Office Visit [facility] [address] [place] [address] Jennifer Wylie APRN [address] [place] [address] 02/28/2025 9:40 AM CDT Appointment [facility][1] Pain [facility] [address] [place] [address] Lennox Weston MD [address] [place] [address] documented as of this encounter Visit Diagnoses Diagnosis Primary osteoarthritis of both knees Primary localized osteoarthrosis, lower leg documented in this encounter Additional Health Concerns Assessment Noted Time PHQ-9 Depression Total Score: 0 03/09/20 22 5:06 PM CDT documented as of this encounter Care Teams Butcher Supervisor Relationship Specialty Start Date End Date Jennifer Wylie APRN [address] [facility] [address] [place] [address] PCP - General Nurse Practitioner-Family 02/13/19 documented as of this encounter
--- OUTSIDE RECORDS SUMMARY | 2025-02-18 18:57 | XMS_ITS | Encounter Summary ---
Author Organization [facility] Address [address] [place] [address] Care Team Providers Care Clinic Clerk Name Role Phone Jennifer Wylie APRN Primary Care Provider [phone] Reason for Visit * Reason Onset Date Comments Medication Refill 07/07/2021 Encounter Details Date Type Department Care Team (Late st Contact Info) Description 07/07/2021 Pt Refill [facility] [address] [place] [phone] Jennifer Wylie APRN [address] [place] [address] Medication Refill Social History Tobacco [...] PM CDT Legal Sex Female 3:05 AM SURGICAL ASST Gender Identity Female 12/14/2019 1:45 PM CDT Sexual Orientation Straight 12/14/2019 1: 45 PM CDT COVID-19 Exposure Response Date Recorded In the last month, have you been in contact with someone who was confirmed or suspected to have Coronavirus / COVID-19? No / Unsure 07/09/2021 1:52 PM SURGICAL ASST documented as of this encounter Functional Status [...] Description 02/28/2025 7:30 AM CDT Office Visit [facility] [address] [place] [address] Jennifer Wylie APRN [address] [place] [address] 02/28/2025 9:[address] [facility] [address] [facility] [place] [address] Lennox Weston MD [address] [place] [address] documented as of this encounter Visit Diagnoses Diagnosis Muscle spasm Spasm of muscle documented in this encounter Additional Health Concerns Infection Onset Date Last Indicated Resolved Time COVID-19 Rule-Out 07/09/2021 07/28/2021 07/23/2021 2:35 AM SURGICAL ASST COVID-19 Rule-Out 07/23/2021 07/23/2021 07/28/2021 1:47 PM SURGICAL ASST COVID-19 Rule-Out 07/28/2021 07/28/2021 07/28/2021 7:27 PM SURGICAL ASST COVID-19 Rule-Out 08/14/2021 08/14/2021 08/14/2021 1:31 PM SURGICAL ASST COVID-19 Rule-Out 08/14/2021 08/22/2021 09/05/2021 2:34 AM CDT Assessment Noted Time PHQ-9 Depression Total Score: 1 04/05/20 10:15 AM CDT documented as of this encounter Care Teams Clinic Clerk Relationship Specialty Start Date End Date Jennifer Wylie APRN [address] [facility] [address] [place] [address] PCP - General Nurse Practitioner-Family 02/13/19 documented as of this encounter
--- OUTSIDE RECORDS SUMMARY | 2025-02-18 18:57 | XMS_ITS | Encounter Summary ---
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 Gender Identity Female 12/14/2019 1:45 PM [...] Description 02/28/2025 7:30 AM CDT Office Visit [facility] [address] [place] [phone] Jennifer Wylie APRN [address] [place] [address] 02/28/2025 9:40 AM CDT Appointment [facility] [address] [place] [address] Lennox Weston MD [address] [place] [address] documented as of this encounter Visit Diagnoses Diagnosis Primary osteoarthritis of both knees Primary localized osteoarthrosis, lower leg documented in this encounter Additional Health Concerns Assessment Noted Time PHQ-9 Depression Total Score: 1 04/05/20 19 10:15 AM CDT documented as of this encounter Care Teams Wind Turbine Installer Relationship Specialty Start Date End Date Jennifer Wylie APRN [address] [facility] [address] [place] [address] PCP - General Nurse Practitioner-Family 02/13/19 documented as of this encounter
--- OUTSIDE RECORDS SUMMARY | 2025-02-18 18:57 | XMS_ITS | Encounter Summary ---
Author Organization [facility] Address [address] [place] [address] Care Team Providers Care Emergency Department Manager Name Role Phone Jennifer Wylie APRN Primary Care Provider [phone] Reason for Visit * Reason Onset Date Comments Medication Refill 09/07/2022 Encounter Details Date Type Department Care Team (Late st Contact Info) Description 09/07/2022 Pt Refill [facility] [address] [place] [phone] Jennifer Wylie APRN [address] [place] [address] Medication Refill Social History Tobacco [...] CDT 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 Gender Identity Female 12/14/2019 1:45 PM [...] AM CDT LAST OV:05/28/22 Pending appt 09/17/22 [facility] REVIEWED REQUEST # : [id number] LAST FILL:08/08/22 DUE ON:09/07/22 documented in this encounter Plan of Treatment Upcoming Encounters Date Type Department Care Team (Late st Contact Info) Description 02/28/2025 7:30 AM CDT Office Visit [facility] [address] [facility] [address] [place] [address] Jennifer Wylie APRN [address] [facility] [address] [place] [address] 02/28/2025 9:40 AM CDT Appointment [facility] [address] [place] [address] Lennox Weston MD [address] [place] [address] documented as of this encounter Visit Diagnoses Diagnosis Primary osteoarthritis of both knees Primary localized osteoarthrosis, lower leg documented in this encounter Additional Health Concerns Assessment Noted Time PHQ-9 Depression Total Score: 0 03/09/20 22 5:06 PM CDT documented as of this encounter Care Teams Emergency Department Manager Relationship Specialty Start Date End Date Jennifer Wylie APRN [address] [facility] [address] [place] [address] PCP - General Nurse Practitioner-Family 02/13/19 documented as of this encounter
--- OUTSIDE RECORDS SUMMARY | 2025-02-18 18:57 | XMS_ITS | Encounter Summary ---
Author Organization [facility] Address [address] [place] [address] Care Team Providers Care Electrical Systems Drafter Name Role Phone Jennifer Wylie REN Primary Care Provider [phone] Reason for Visit * Reason Onset Date Comments Medication Refill 07/31/2020 Encounter Details Date Type Department Care Team (Late st Contact Info) Description 07/31/2020 Pt Refill [facility] [address] [address] Talia Phoenix NP [address] [facility] [address] [place] [address] Medication Refill Social History Tobacco [...] PM CDT Legal Sex Female 3:05 AM LINOTYPE MECHANIC Gender Identity Female 12/14/2019 1:45 PM CDT Sexual Orientation Straight 12/14/2019 1: 45 PM CDT COVID-19 Exposure Response Date Recorded In the last month, have you been in contact with someone who was confirmed or suspected to have Coronavirus / COVID-19? No / Unsure 08/01/2020 7:33 AM LINOTYPE MECHANIC documented as of this encounter Plan of Treatment Upcoming Encounters Date Type Department Care Team (Late st Contact Info) Description 02/28/2025 7:30 AM CDT Office Visit [facility] [address] [place] [phone] Jennifer Wylie, STRADDLE CARRIER OPERATOR [address] [place], [place] [address] 02/28/2025 9:40 AM CDT Appointment [facility] [address] [place] [phone] Lennox Weston MD [address] [place] [address] documented as of this encounter Visit Diagnoses Diagnosis Non-intractable vomiting with nausea, unspecified vomiting type documented in this encounter Additional Health Concerns Infection Onset Date Last Indicated Resolved Time COVID-19 Rule-Out 08/01/2020 08/01/2020 08/02/2020 10:46 AM LINOTYPE MECHANIC COVID-19 Rule-Out 03/28/2021 03/28/2021 03/28/2021 5:25 PM CDT COVID-19 Rule-Out 07/09/2021 07/28/2021 07/23/2021 2:35 AM LINOTYPE MECHANIC COVID-19 Rule-Out 07/23/2021 07/23/2021 07/28/2021 1:47 PM LINOTYPE MECHANIC COVID-19 Rule-Out 07/28/2021 07/28/2021 07/28/2021 7:27 PM LINOTYPE MECHANIC COVID-19 Rule-Out 08/14/2021 08/14/2021 08/14/2021 1:31 PM LINOTYPE MECHANIC COVID-19 Rule-Out 08/14/2021 08/22/2021 09/05/2021 2:34 AM CDT Assessment Noted Time PHQ-9 Depression Total Score: 1 04/05/20 19 10:15 AM CDT documented as of this encounter Care Teams Electrical Systems Drafter Relationship Specialty Start Date End Date Jennifer Wylie APRN [address] [facility] [address] [place] [address] PCP - General Nurse Practitioner-Family 02/13/19 documented as of this encounter
--- OUTSIDE RECORDS SUMMARY | 2025-02-18 18:57 | XMS_ITS | Encounter Summary ---
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 Gender Identity Female 12/14/2019 1:45 PM CDT [...] Description 02/28/2025 7:30 AM CDT Office Visit [facility] [address] [place] [address] Jennifer Wylie, ORTHO ASSISTANT [address] [place] [address] 02/28/2025 9:40 AM CDT Appointment [facility] [address] [place] [address] Lennox Weston MD [address] [place] [address] documented as of this encounter Visit Diagnoses Diagnosis Chronic GERD documented in this encounter Additional Health Concerns Assessment Noted Time PHQ-9 Depression Total Score: 0 03/09/20 22 5:06 PM CDT documented as of this encounter Care Teams Blasting Cap Assembler Relationship Specialty Start Date End Date Jennifer Wylie APRN [address] [facility] [address] [place] [address] PCP - General Nurse Practitioner-Family 02/13/19 documented as of this encounter
--- OUTSIDE RECORDS SUMMARY | 2025-02-18 18:57 | XMS_ITS | Encounter Summary ---
Author Organization [facility] Address [address] [place] [address] Care Team Providers Care Returning Officer Name Role Phone Jennifer Wylie APRN Primary Care Provider [phone] Reason for Visit * Reason Onset Date Comments Medication Refill 12/30/2023 Encounter Details Date Type Department Care Team (Late st Contact Info) Description 12/30/[address] [facility] [address] [place] [phone] Jennifer Wylie APRN [address] [place] [address] Medication Refill Social History Tobacco [...] slept in a retirement (including now)? 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 DOCUMENT MANAGEMENT CONSULTANT Gender Identity Female 12/14/2019 1:45 PM CDT [...] Description 02/28/2025 7:30 AM CDT [facility] [address] [place] [address] Jennifer Wylie, SUPERVISOR WINTER [address] [place] [address] 02/28/2025 9:[address] [facility] [address] [place] [address] Lennox Weston MD [address] [place] [address] documented as of this encounter Visit Diagnoses Diagnosis Muscle spasm Spasm of muscle documented in this encounter Additional Health Concerns Assessment Noted Time PHQ-9 Depression Total Score: 7 09/29/19 24 7:52 AM CDT documented as of this encounter Care Teams Returning Officer Relationship Specialty Start Date End Date Jennifer Wylie APRN [address] [facility] [address] [place] [address] PCP - General Nurse Practitioner-Family 02/13/19 documented as of this encounter
--- OUTSIDE RECORDS SUMMARY | 2025-02-18 18:57 | XMS_ITS | Encounter Summary ---
Author Organization [facility] Address [address] [place] [address] Care Team Providers Care Roof Truss Machine Tender Name Role Phone Jennifer Wylie APRN Primary Care Provider [phone] Reason for Visit * Reason Onset Date Comments Medication Refill 03/25/2021 Encounter Details Date Type Department Care Team (Late st Contact Info) Description 03/25/2021 Pt Refill [facility] [address] [place] [phone] Jennifer Wylie APRN [address] [place] [address] Medication Refill Social History Tobacco [...] PM CDT Legal Sex Female 3:05 AM MANAGER FLEET Gender Identity Female 12/14/2019 1:45 PM CDT [facility] [address] [place] [phone] Jennifer Wylie APRN [address] [place] [address] 02/28/2025 9:40 AM CDT Appointment [facility] [address] [place] [phone] Lennox Weston MD [address] [place] [address] documented as of this encounter Visit Diagnoses Diagnosis Essential hypertension Unspecified essential hypertension documented in this encounter Additional Health Concerns Infection Onset Date Last Indicated Resolved Time COVID-19 Rule-Out 03/28/2021 03/28/2021 03/28/2021 5:25 PM CDT COVID-19 Rule-Out 07/09/2021 07/28/2021 07/23/2021 2:35 AM MANAGER FLEET COVID-19 Rule-Out 07/23/2021 07/23/2021 07/28/2021 1:47 PM MANAGER FLEET COVID-19 Rule-Out 07/28/2021 07/28/2021 07/28/2021 7:27 PM MANAGER FLEET COVID-19 Rule-Out 08/14/2021 08/14/2021 08/14/2021 1:31 PM MANAGER FLEET COVID-19 Rule-Out 08/14/2021 08/22/2021 09/05/2021 2:34 AM CDT Assessment Noted Time PHQ-9 Depression Total Score: 1 04/05/20 10:15 AM CDT documented as of this encounter Care Teams Roof Truss Machine Tender Relationship Specialty Start Date End Date Jennifer Wylie APRN [address] [facility] [address] [place] [address] PCP - General Nurse Practitioner-Family 02/13/19 documented as of this encounter
--- OUTSIDE RECORDS SUMMARY | 2025-02-18 18:57 | XMS_ITS | Encounter Summary ---
Author Organization [facility] Address [address] [place] [address] Care Team Providers Care Opener Name Role Phone Jennifer Wylie APRN Primary Care Provider [phone] Reason for Visit * Reason Onset Date Comments Medication Refill 05/06/2022 Encounter Details Date Type Department Care Team (Late st Contact Info) Description 05/06/2022 Pt Refill [facility] [address] [place] [phone] Jennifer Wylie APRN [address] [place] [address] Medication Refill Social History Tobacco [...] PM CDT Legal Sex Female 3:05 AM CISCO NETWORK ARCHITECT Gender Identity Female 12/14/2019 1:45 PM CDT [...] Author No 03/29/2021 9:00 AM CDT Henrry Mathesw RN * Because of a physical, mental, [...] - 05/07/2022 9:31 AM CST LAST OV:04/10/22 [facility] REVIEWED REQUEST # : [id number] LAST FILL:04/06/22 DUE ON: O NETWORK ARCHITECT documented in this encounter Plan of Treatment Upcoming Encounters Date Type Department Care Team (Late st Contact Info) Description 02/28/2025 7:30 AM CDT [facility] [address] [place] [address] Jennifer Wylie, SAFETY SPECIALIST [address] [place] [address] 02/28/2025 9:40 AM CDT Appointment [facility] [address] [facility] [place] [address] Lennox Weston MD [address] [place] [address] documented as of this encounter Visit Diagnoses Not on filedocumented in this encounter Additional Health Concerns Assessment Noted Time PHQ-9 Depression Total Score: 0 03/09/20 22 5:06 PM CDT documented as of this encounter Care Teams Opener Relationship Specialty Start Date End Date Jennifer Wylie APRN [address] [facility] [address] [place] [address] PCP - General Nurse Practitioner-Family 02/13/19 documented as of this encounter
--- OUTSIDE RECORDS SUMMARY | 2025-02-18 18:57 | XMS_ITS | Encounter Summary ---
Author Organization [facility] Address [address] [place] [address] Care Team Providers Care Computer Salesperson Retail Name Role Phone Jennifer Wylie APRN Primary Care Provider [phone] Reason for Visit * Reason Onset Date Comments Medication Refill 01/01/2023 Encounter Details Date Type Department Care Team (Late st Contact Info) Description 01/01/2023 Pt Refill [facility] [address] [place] [phone] Jennifer Wylie APRN [address] [place] [address] Medication Refill Social History Tobacco [...] PM CDT Legal Sex Female 3:05 AM COMPLIANCE FIELD TECHNICIAN Gender Identity Female 12/14/2019 1:45 PM [...] Description 02/28/2025 7:30 AM CDT Office Visit [place] [address] [facility] [address] [place] [address] Jennifer Wylie APRN [address] [place] [address] 02/28/2025 9:[address] [facility] [address] [place] [address] Lennox Weston MD [address] [place] [address] documented as of this encounter Visit Diagnoses Diagnosis Essential hypertension Unspecified essential hypertension documented in this encounter Additional Health Concerns Assessment Noted Time PHQ-9 Depression Total Score: 0 03/09/20 22 5:06 PM CDT documented as of this encounter Care Teams Computer Salesperson Retail Relationship Specialty Start Date End Date Jennifer Wylie APRN [address] [place] [address] PCP - General Nurse Practitioner-Family 02/13/19 documented as of this encounter
--- OUTSIDE RECORDS SUMMARY | 2025-02-18 18:57 | XMS_ITS | Encounter Summary ---
Author Organization [facility] Address [address] [place] [address] Care Team Providers Care Administrative Officer Name Role Phone Jennifer Wylie REN Primary Care Provider [phone] Reason for Visit * Reason Onset Date Comments Medication Refill 07/31/2020 Encounter Details Date Type Department Care Team (Late st Contact Info) Description 07/31/2020 Pt Refill [facility] [address] [address] Talia Phoenix NP [address] [facility] [address] [place] [address] Medication Refill Social History Tobacco [...] PM CDT Legal Sex Female 3:05 AM UNDERWRITER Gender Identity Female 12/14/2019 1:45 PM CDT Sexual Orientation Straight 12/14/2019 1: 45 PM CDT COVID-19 Exposure Response Date Recorded In the last month, have you been in contact with someone who was confirmed or suspected to have Coronavirus / COVID-19? No / Unsure 08/01/2020 7:33 AM UNDERWRITER documented as of this encounter Plan of Treatment Upcoming Encounters Date Type Department Care Team (Late st Contact Info) Description 02/28/2025 7:30 AM CDT [facility] [address] [place] [phone] Jennifer Wylie SLEEP TECHNOLOGIST [address] [place], [place] [address] 02/28/2025 9:40 AM CDT Appointment [facility] [address] [place] [phone] Lennox Weston MD [address] [place] [address] documented as of this encounter Visit Diagnoses Not on filedocumented in this encounter Additional Health Concerns Infection Onset Date Last Indicated Resolved Time COVID-19 Rule-Out 08/01/2020 08/01/2020 08/02/2020 10:46 AM UNDERWRITER COVID-19 Rule-Out 03/28/2021 03/28/2021 03/28/2021 5:25 PM CDT COVID-19 Rule-Out 07/09/2021 07/28/2021 07/23/2021 2:35 AM UNDERWRITER COVID-19 Rule-Out 07/23/2021 07/23/2021 07/28/2021 1:47 PM UNDERWRITER COVID-19 Rule-Out 07/28/2021 07/28/2021 07/28/2021 7:27 PM UNDERWRITER COVID-19 Rule-Out 08/14/2021 08/14/2021 08/14/2021 1:31 PM UNDERWRITER COVID-19 Rule-Out 08/14/2021 08/22/2021 09/05/2021 2:34 AM CDT Assessment Noted Time PHQ-9 Depression Total Score: 1 04/05/20 19 10:15 AM CDT documented as of this encounter Care Teams Administrative Officer Relationship Specialty Start Date End Date Jennifer Wylie APRN [address] [facility] [address] [place] [address] PCP - General Nurse Practitioner-Family 02/13/19 documented as of this encounter
--- OUTSIDE RECORDS SUMMARY | 2025-02-18 18:57 | XMS_ITS | Encounter Summary ---
Author Organization [facility] Address [address] [place] [address] Care Team Providers Care Miller Rod Mill Name Role Phone Jennifer Wylie APRN Primary Care Provider [phone] Reason for Visit * Reason Onset Date Comments Medication Refill 01/17/2021 Encounter Details Date Type Department Care Team (Late st Contact Info) Description 01/17/2021 Pt Refill [facility] [address] [place] [address] Jennifer Wylie APRN [address] [place] [address] Medication Refill Social History Tobacco [...] PM CDT Legal Sex Female 3:05 AM INJECTION MOLDING OPERATOR Gender Identity Female 12/14/2019 1:45 PM [...] Description 02/28/2025 7:30 AM CDT Office Visit [facility] [address] [place] [phone] Jennifer Wylie APRN [address] [place] [address] 02/28/2025 9:40 AM CDT Appointment [facility] [address] [place] [phone] Lennox Weston MD [address] [place] [address] documented as of this encounter Visit Diagnoses Diagnosis Essential hypertension Unspecified essential hypertension documented in this encounter Additional Health Concerns Infection Onset Date Last Indicated Resolved Time COVID-19 Rule-Out 03/28/2021 03/28/2021 03/28/2021 5:25 PM CDT COVID-19 Rule-Out 07/09/2021 07/28/2021 07/23/2021 2:35 AM INJECTION MOLDING OPERATOR COVID-19 Rule-Out 07/23/2021 07/23/2021 07/28/2021 1:47 PM INJECTION MOLDING OPERATOR COVID-19 Rule-Out 07/28/2021 07/28/2021 07/28/2021 7:27 PM INJECTION MOLDING OPERATOR COVID-19 Rule-Out 08/14/2021 08/14/2021 08/14/2021 1:31 PM INJECTION MOLDING OPERATOR COVID-19 Rule-Out 08/14/2021 08/22/2021 09/05/2021 2:34 AM CDT Assessment Noted Time PHQ-9 Depression Total Score: 1 04/05/20 10:15 AM CDT documented as of this encounter Care Teams Miller Rod Mill Relationship Specialty Start Date End Date Jennifer Wylie APRN [address] [facility] [address] [place] [address] PCP - General Nurse Practitioner-Family 02/13/19 documented as of this encounter
--- OUTSIDE RECORDS SUMMARY | 2025-02-18 18:57 | XMS_ITS | Encounter Summary ---
Author Organization [facility] Address [address] [place] [address] Care Team Providers Care Cake Press Operator Helper Name Role Phone Jennifer Wylie APRN Primary Care Provider [phone] Reason for Visit * Reason Onset Date Comments Medication Refill 08/02/2023 Encounter Details Date Type Department Care Team (Late st Contact Info) Description 08/02/2023 Pt Refill [facility] [address] [place] [phone] Jennifer Wylie APRN [address] [place] [address] Medication Refill Social History Tobacco [...] place to sleep or slept in a correction (including now)? No 02/03/2023 Alcohol Use Answer [...] CDT Legal Sex Female 3:05 AM LEATHER PRODUCTION ARTISAN Gender Identity Female 12/14/2019 1:45 PM CDT [...] [facility] [address] [place] [address] Jennifer Wylie, SALES ATTENDANT [address] [place] [address] 02/28/2025 9:40 AM CDT Appointment [facility] [address] [place] [address] Lennox Weston MD [address] [place] [address] documented as of this encounter Visit Diagnoses Diagnosis Type 2 diabetes mellitus without complication, with long-term current use of insulin (HCC) documented in this encounter Additional Health Concerns Assessment Noted Time PHQ-9 Depression Total Score: 0 03/09/20 22 5:06 PM CDT documented as of this encounter Care Teams Cake Press Operator Helper Relationship Specialty Start Date End Date Jennifer Wylie APRN [address] [facility] [address] [place] [address] PCP - General Nurse Practitioner-Family 02/13/19 documented as of this encounter
--- OUTSIDE RECORDS SUMMARY | 2025-02-18 18:57 | XMS_ITS | Encounter Summary ---
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 No / Unsure 07/09/2021 1:52 PM NURSE EDUCATOR documented as of this encounter Functional Status [...] Description 02/28/2025 7:30 AM CDT Office Visit [facility] [address] [place] [address] Jennifer Wylie APRN [address] [place] [address] 02/28/2025 9:40 AM CDT Appointment [facility] [address] [facility] [place] [address] Lennox Weston MD [address] [place] [address] documented as of this encounter Visit Diagnoses Diagnosis Essential hypertension Unspecified essential hypertension documented in this encounter Additional Health Concerns Infection Onset Date Last Indicated Resolved Time COVID-19 Rule-Out 07/09/2021 07/28/2021 07/23/2021 2:35 AM NURSE EDUCATOR COVID-19 Rule-Out 07/23/2021 07/23/2021 07/28/2021 1:47 PM NURSE EDUCATOR COVID-19 Rule-Out 07/28/2021 07/28/2021 07/28/2021 7:27 PM NURSE EDUCATOR COVID-19 Rule-Out 08/14/2021 08/14/2021 08/14/2021 1:31 PM NURSE EDUCATOR COVID-19 Rule-Out 08/14/2021 08/22/2021 09/05/2021 2:34 AM CDT Assessment Noted Time PHQ-9 Depression Total Score: 1 04/05/20 19 10:15 AM CDT documented as of this encounter Care Teams Cloth Bolt Bander Relationship Specialty Start Date End Date Jennifer Wylie APRN [address] [facility] [address] [place] [address] PCP - General Nurse Practitioner-Family 02/13/19 documented as of this encounter
--- OUTSIDE RECORDS SUMMARY | 2025-02-18 18:57 | XMS_ITS | Encounter Summary ---
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 Gender Identity Female 12/14/2019 1:45 PM CDT [...] Description 02/28/2025 7:30 AM CDT [facility] [address] [place] [address] Jennifer Wylie APRN [address] [place] [address] 02/28/2025 9:40 AM CDT Appointment [facility] [address] [facility] [place] [place] [address] Lennox Weston MD [address] [place] [address] documented as of this encounter Visit Diagnoses Diagnosis Non-intractable vomiting with nausea, unspecified vomiting type documented in this encounter Additional Health Concerns Assessment Noted Time PHQ-9 Depression Total Score: 1 04/05/20 19 10:15 AM CDT documented as of this encounter Care Teams Chute Boss Relationship Specialty Start Date End Date Jennifer Wylie APRN [address] [facility] [address] [place] [address] PCP - General Nurse Practitioner-Family 02/13/19 documented as of this encounter
--- OUTSIDE RECORDS SUMMARY | 2025-02-18 18:57 | XMS_ITS | Encounter Summary ---
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 Gender Identity Female 12/14/2019 1:45 PM CDT [...] Description 02/28/2025 7:30 AM CDT Office Visit [facility] [address] [place] [phone] Jennifer Wylie APRN [address] [place] [address] 02/28/2025 9:40 AM CDT Appointment [facility] [address] [place] [phone] Lennox Weston MD [address] [place] [address] documented as of this encounter Visit Diagnoses Diagnosis Essential hypertension Unspecified essential hypertension documented in this encounter Additional Health Concerns Infection Onset Date Last Indicated Resolved Time COVID-19 Rule-Out 03/28/2021 03/28/2021 03/28/2021 5:25 PM CDT COVID-19 Rule-Out 07/09/2021 07/28/2021 07/23/2021 2:35 AM VINE PRUNER COVID-19 Rule-Out 07/23/2021 07/23/2021 07/28/2021 1:47 PM VINE PRUNER COVID-19 Rule-Out 07/28/2021 07/28/2021 07/28/2021 7:27 PM VINE PRUNER COVID-19 Rule-Out 08/14/2021 08/14/2021 08/14/2021 1:31 PM VINE PRUNER COVID-19 Rule-Out 08/14/2021 08/22/2021 09/05/2021 2:34 AM CDT Assessment Noted Time PHQ-9 Depression Total Score: 1 04/05/20 10:15 AM CDT documented as of this encounter Care Teams Bean Weigher Relationship Specialty Start Date End Date Jennifer Wylie APRN 12[address] [facility] [address] [place] [address] PCP - General Nurse Practitioner-Family 02/13/19 documented as of this encounter
--- OUTSIDE RECORDS SUMMARY | 2025-02-18 18:57 | XMS_ITS | Encounter Summary ---
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 Gender Identity Female 12/14/2019 1:45 PM CDT [...] LAST OV:09/17/22 [facility] REVIEWED REQUEST # : [id number] LAST FILL:11/06/22 DUE ON:12/05/22 documented in this encounter Plan of Treatment Upcoming Encounters Date Type Department Care Team (Late st Contact Info) Description 02/28/2025 7:30 AM CDT Office Visit [facility] [address] [facility] [address] [place] [address] Jennifer Wylie APRN [address] [address] 02/28/2025 9:40 AM CDT Appointment [facility] [address] [place] [address] Lennox Weston MD [address] [place] [address] documented as of this encounter Visit Diagnoses Diagnosis Primary osteoarthritis of both knees Primary localized osteoarthrosis, lower leg documented in this encounter Additional Health Concerns Assessment Noted Time PHQ-9 Depression Total Score: 0 03/09/20 22 5:06 PM CDT documented as of this encounter Care Teams Track And Field Coach Relationship Specialty Start Date End Date Jennifer Wylie APRN [address] [facility] [address] [place] [address] PCP - General Nurse Practitioner-Family 02/13/19 documented as of this encounter
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
--- OUTSIDE RECORDS SUMMARY | 2025-02-18 18:58 | XMS_ITS | Encounter Summary ---
Author Organization [facility] Address [address] [place] [address] Care Team Providers Care Vulcanizing Machine Operator Name Role Phone Jennifer Wylie APRN Primary Care Provider [phone] Reason for Visit * Reason Onset Date Comments Medication Refill 03/01/2024 Encounter Details Date Type Department Care Team (Late st Contact Info) Description 03/01/2024 Pt Refill [facility] [address] [place] [phone] Jennifer Wylie APRN [address] [place] [address] Medication Refill Social History Tobacco Use Types Packs/Day Years Used Date Smoking Tobacco: Every Day Cigarettes 1 38.7 Started: 06/07/1983; Last attempted to quit: 03/05/2022 Smokeless Tobacco: Never Alcohol Use Standard Drinks/Week Comments Never 0 (1 standard drink = 0.6 oz pur e alcohol) [facility] Utilities Answer Date Recorded In the [...] place to sleep or slept in a care home (including now)? 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 Gender Identity Female 12/14/2019 1:45 PM CDT [...] AM CDT Office Visit [facility] [address] [place] [phone] Jennifer Wylie APRN [address] [facility] [address] [place] [address] 02/28/2025 9:40 AM CDT Appointment [facility] [address] [place] [address] Lennox Weston MD [address] [place] [address] documented as of this encounter Visit Diagnoses Diagnosis Muscle spasm Spasm of muscle documented in this encounter Additional Health Concerns Assessment Noted Time PHQ-9 Depression Total Score: 7 09/29/19 24 7:52 AM CDT documented as of this encounter Care Teams Vulcanizing Machine Operator Relationship Specialty Start Date End Date Jennifer Wylie APRN [address] [facility] [address] [place] [address] PCP - General Nurse Practitioner-Family 02/13/19 documented as of this encounter
--- OUTSIDE RECORDS SUMMARY | 2025-02-18 18:58 | XMS_ITS | Encounter Summary ---
Author Organization [facility] Address [address] [place] [address] Care Team Providers Care Truck Rental Clerk Name Role Phone Jennifer Wylie APRN Primary Care Provider [phone] Reason for Visit * Reason Onset Date Comments Medication Refill 05/22/2024 Encounter Details Date Type Department Care Team (Late st Contact Info) Description 05/22/2024 Pt Refill [facility] [address] [place] [phone] Jennifer Wylie APRN [address] [place] [address] Medication Refill Social History Tobacco Use Types Packs/Day Years Used Date Smoking Tobacco: Every Day Cigarettes 1 38.7 Started: 06/07/1983; Last attempted to quit: 03/05/2022 Smokeless Tobacco: Never Alcohol Use Standard Drinks/Week Comments Never 0 (1 standard drink = 0.6 oz pur e alcohol) [facility] Utilities Answer Date Recorded In the [...] place to sleep or slept in a [place] facility (including now)? 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 Gender Identity Female 12/14/2019 1:45 PM CDT [...] CDT Office Visit [facility] [address] [place] [phone] Jennifer Wylie APRN [address] [facility] [address] [place] [address] 02/28/2025 9:40 AM CDT Appointment [facility] [address] [place] [address] Lennox Weston MD [address] [place] [address] documented as of this encounter Visit Diagnoses Diagnosis Muscle spasm Spasm of muscle documented in this encounter Additional Health Concerns Assessment Noted Time PHQ-9 Depression Total Score: 7 09/29/19 24 7:52 AM CDT documented as of this encounter Care Teams Truck Rental Clerk Relationship Specialty Start Date End Date Jennifer Wylie APRN [address] [facility] [address] [place] [address] PCP - General Nurse Practitioner-Family 02/13/19 documented as of this encounter
--- OUTSIDE RECORDS SUMMARY | 2025-02-18 18:58 | XMS_ITS | Encounter Summary ---
Author Organization [facility] Address [address] [place] [address] Care Team Providers Care Vegetable Grader Name Role Phone Jennifer Wylie APRN Primary Care Provider [phone] Reason for Visit * Reason Onset Date Comments Medication Refill 05/12/2024 Encounter Details Date Type Department Care Team (Late st Contact Info) Description 05/12/2024 Pt Refill [facility] [address] [place] [phone] Jennifer Wylie APRN [address] [place] [address] Medication Refill Social History Tobacco Use Types Packs/Day Years Used Date Smoking Tobacco: Every Day Cigarettes 1 38.7 Started: 06/07/1983; Last attempted to quit: 03/05/2022 Smokeless Tobacco: Never Alcohol Use Standard Drinks/Week Comments Never 0 (1 standard drink = 0.6 oz pur e alcohol) [facility] Utilities Answer Date Recorded In the [...] slept in a custodial (including now)? 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 Answer Date of Assessment Author No 03/29/2021 9:00 AM CDT Pricila Mathews RN * Because of a physical, mental, or emotional condition, do you have difficulty doing errands alone such as visiting a doctor's office or shopping? Answer Date of Assessment Author No 03/29/2021 9:00 AM CDHenrry Kingsley RN documented as of this encounter Mental Status * Because of a physical, mental, or emotional condition, do you have serious difficulty concentrating, remembering, or making decisions? Answer Entry Date Author No 03/29/2021 9:00 AM Henrry Lynch RN documented in this encounter Miscellaneous Notes * Telephone Encounter - Mirela Lr CMA - 05/12/2024 10:01 AM WAFER FABRICATOR Last rupinder: 05/12/2024 Last seen: 03/30/2024 No pending appt Last filled: 04/19/2024 Rupinder has been reviewed. R FABRICATOR documented in this encounter Plan of Treatment Upcoming Encounters Date Type Department Care Team (Late st Contact Info) Description 02/28/2025 7:30 AM CDT Office Visit [facility] [address] [place] [phone] Jennifer Wylie APRN [address] [place] [address] 02/28/2025 9:40 AM CDT Appointment [facility] [address] [place] [address] Lennox Weston MD [address] [place] [address] documented as of this encounter Visit Diagnoses Diagnosis Anxiety- Primary Anxiety state, unspecified documented in this encounter Additional Health Concerns Assessment Noted Time PHQ-9 Depression Total Score: 7 09/29/19 24 7:52 AM CDT documented as of this encounter Care Teams Vegetable Grader Relationship Specialty Start Date End Date Jennifer Wylie APRN [address] [facility] [address] [place] [address] PCP - General Nurse Practitioner-Family 02/13/19 documented as of this encounter
[2025-02-18 18:59] LABS: Hematocrit 43.7 % (37.0-47.0); Hemoglobin 14.2 g/dL (12.0-15.0); Immature Granulocyte Percent A 0.4 % (0-0.5); Lymphocytes Absolute Auto 4.74 K/mm3 (0.9-3.2); Mean Corpuscular HGB Conc 32.5 g/dl (32-36); Mean Corpuscular Hemoglobin 29.4 pg (26-34); Mean Corpuscular Volume 90.5 fl (80-100); Nucleated Red Blood Cells Absolute Auto 0.000 K/mm3 (0.0-0.012); Nucleated Red Blood Cells Perc 0.0 % (0.0-0.2); Platelet Count Result 264 k/mm3 (150-375); Red Blood Count 4.83 M/mm3 (4.2-5.4); White Blood Count 13.9 K/mm3 (4.5-10.0)
[2025-02-18] MEDS: SODIUM CHLORIDE 0.9% IV 1,000 ML 999 ML IV CONT (19:07)
[2025-02-18] MEDS: MORPHINE SULFATE (*CRX) 4 MG/ML INJ IV PUSH (19:08)
[2025-02-18] MEDS: ONDANSETRON INJ 4 MG/2 ML VIAL IV PUSH (19:08)
[2025-02-18 19:09] LABS: Alanine Aminotransferase 45 U/L (6-35); Albumin Level 4.1 g/dL (3.5-5.1); Alkaline Phosphatase 93 U/L (38-126); Anion Gap 7 mmol/L (4-12); Aspartate Amino Transferase 70 U/L (14-36); Bilirubin,Total 0.5 mg/dL (0.2-1.3); Blood Urea Nitrogen 16 mg/dL (7-17); Calcium 9.8 mg/dL (8.4-10.2); Carbon Dioxide 27 mmol/L (22-30); Chloride 103 mmol/L (98-107); Estimated CRCL calculation 78 ml/min; Estimated Glomerular Filt Rate > 60; Glucose 144 mg/dL (65-110); Potassium 3.6 mmol/L (3.4-5.0); Sodium 137 mmol/L (137-145); Total Protein 7.7 g/dL (6.3-8.2)
[2025-02-18 19:13] LABS: Add Urine Microscopic? YES; Appearance Urine Turbid (Clear); Glucose Urine UA 3+ mg/dL (Negative); Leukocyte Esterase Ur 2+ LEU/UL (Negative); Need Manual Microscopic Reviewed; Nitrate Urine Negative (Negative); Specific Grav Ur 1.030 (1.001-1.035)
--- NOTE | 2025-02-18 19:30 | ED.FEMALEGU ---
HPI - Female Genitourinary General Chief complaint: Urogenital-Female Stated complaint: mult co Time Seen by Provider: 02/18/25 18:41 Source: patient Mode of arrival: ambulatory Limitations: no limitations History of Present Illness HPI Narrative: Patient is a 54 y/o female who presents the ED with report of left-sided flank and abdominal pain. Patient reports she woke up this morning with some difficulty urinating, dysuria, slight hematuria with wiping. She then developed pain throughout her left-sided flank and left-sided abdomen throughout the day. Reports nausea, denies vomiting. Denies fevers. Reports history of previous UTI and kidney stones. States pain feels somewhat similar. Related Data Allergies Allergy/AdvReac Type Severity Reaction Status Date / Time No Known Allergies Allergy Verified 02/18/25 18:33 Review of Systems Review of Systems: All systems reviewed & are unremarkable except as noted in HPI. All systems reviewed & are unremarkable except as noted in HPI and below Exam Narrative: GENERAL: Well appearing, well-nourished, non-toxic, in no acute distress. HEAD: Normocephalic, atraumatic. RESPIRATORY: Airway patent, respirations nonlabored. Clear to auscultation bilaterally, no rales, rhonchi, wheezing. CARDIOVASCULAR: Regular rate and rhythm without murmurs, rubs, or gallops. ABDOMINAL: Soft, tenderness to palpation left lower quadrant, positive CVA tenderness on left, nondistended. Normoactive BS. MUSCULOSKELETAL: Moves all extremities. No gross deformities. SKIN: Warm, dry, normal color. NEURO: A&O X3. Speech clear. Cranial nerves II-XII grossly intact. Steady gait. No ataxic movements. PSYCHIATRIC: Appropriate mood and affect. Normal interaction. Course Vital Signs Vital signs: Vital Signs Temperature 97.1 F L 02/18/25 17:10 Pulse Rate 82 02/18/25 17:10 Respiratory Rate 18 02/18/25 17:10 Blood Pressure 118/82 02/18/25 17:10 Pulse Oximetry 99 02/18/25 17:10 Oxygen Delivery Room Air 02/18/25 17:10 Temperature 98.0 F 02/18/25 20:57 Pulse Rate 77 02/18/25 20:57 Respiratory Rate 18 02/18/25 20:57 Blood Pressure 103/66 02/18/25 18:34 Pulse Oximetry 99 02/18/25 20:57 Oxygen Delivery Room Air 02/18/25 17:10 MDM - Female Genitourinary MDM Narrative Medical decision making narrative: Patient presented to ED with UTI symptoms, left-sided flank and abdominal pain. Vital signs stable upon arrival. Afebrile here. Cbc blood cell count of 13.9. CMP fairly unremarkable. Blood glucose minimally elevated at 144. Minimal transaminitis. No records to compare to. Normal bilirubin. UA consistent with infection, 2+ leuk esterase, greater than 100 WBC, white blood cell clumps, 4+ urine bacteria. Sent for culture. Rocephin given in the ED. Urine negative. CT scan of abdomen/pelvis was obtained and without evidence of ureterolithiasis. No hydronephrosis or other evidence of pyelo. No other concerning features. Discussed lab and imaging findings with patient. Feel she is safe for discharge home on oral antibiotics for urinary tract infection. Also prescribe Zofran for home. She is in agreement with this plan, feels comfortable going home. Advised to continue Tylenol/ibuprofen, recommended follow-up with PCP for further evaluation. Given return precautions. Discharged in stable condition. Medical Records Attestation: I reviewed the patient's medical records. Lab Data Attestation: I reviewed the patient's lab results. 02/18/25 18:47 02/18/25 18:47 Labs: Lab Results 02/18/25 02/18/25 02/18/25 Range/Units 17:08 18:47 18:54 WBC 13.9 H (4.5-10.0) K/mm3 RBC 4.83 (4.2-5.4) M/mm3 Hgb 14.2 (12.0-15.0) g/dL Hct 43.7 (37.0-47.0) % MCV 90.5 (80-100) fl MCH 29.4 (26-34) pg MCHC 32.5 (32-36) g/dl RDW 13.1 (11.5-14.5) % Plt Count 264 (150-375) k/mm3 MPV 12.0 H (7.4-10.4) fl Immature Gran % (Auto) 0.4 (0-0.5) % Neut % (Auto) 56.6 (45.5-73.1) % Lymph % (Auto) 34.2 (18.3-44.2) % [place] % (Auto) 7.1 (2.6-8.5) % Eos % (Auto) 1.2 (0-4.4) % Baso % (Auto) 0.5 (0.2-1.2) % Lymph # (Auto) 4.74 H (0.9-3.2) K/mm3 [place] # (Auto) 1.0 H (0.1-0.6) K/mm3 Eos # (Auto) 0.2 (0-0.3) K/mm3 Baso # (Auto) 0.1 (0.0-0.1) K/mm3 Abs Immat Gran (auto) 0.05 H (0.00-0.031) K/mm3 Absolute Neuts (auto) 7.9 H (1.3-6.7) K/mm3 Absolute Nucleated RBC 0.000 (0.0-0.012) K/mm3 Nucleated RBC % 0.0 (0.0-0.2) % Sodium 137 (137-145) mmol/L Potassium 3.6 (3.4-5.0) mmol/L Chloride 103 (98-107) mmol/L Carbon Dioxide 27 (22-30) mmol/L Anion Gap 7 (4-12) mmol/L BUN 16 (7-17) mg/dL Creatinine 0.82 (0.7-1.0) mg/dL Estim Creat Clear Calc 78 ml/min Estimated GFR > 60 (59 - ) Glucose 144 H (65-110) mg/dL POC Capillary Glucose 151 H (65-105) mg/dl Calcium 9.8 (8.4-10.2) mg/dL Total Bilirubin 0.5 (0.2-1.3) mg/dL AST 70 H (14-36) U/L ALT 45 H (6-35) U/L Alkaline Phosphatase 93 (38-126) U/L Total Protein 7.7 (6.3-8.2) g/dL Albumin 4.1 (3.5-5.1) g/dL Urine Color Dark yellow (Yellow) Urine Appearance Turbid H (Clear) Urine pH 7.0 (5.0-9.0) Ur Specific [place] 1.030 (1.001-1.035) Urine Protein 1+ H (Negative) mg/dL Urine Glucose (UA) 3+ H (Negative) mg/dL Urine Ketones Trace H (Negative) mg/dL Ur Blood (Man) Trace (Negative) Urine Nitrate Negative (Negative) Urine Bilirubin 1+ H (Negative) Urine Urobilinogen 1.0 (<2.0) mg/dL Add Ur Microanalysis Reviewed Leukocyte Esterase Rfl 2+ H (Negative) ANGIE/UL Urine RBC 3-5 H (0-2) /hpf Urine WBC >100 H (0-3) /hpf Urine WBC Clumps Present H (None) /HPF Ur Squamous Epith Cells Few (Few) /hpf Urine Bacteria 4+ H /hpf Urine Casts 3-5 POC Urine HCG, Qual Negative (Negative) Imaging Data Attestation: I personally reviewed and interpreted this imaging study as follows: Radiologist's impression: STAT RAD CT abd/pelvis: Impression: No evidence of renal calculi or hydronephrosis. No calculi are noted within the urinary bladder. Incidental findings: No diverticular disease is identified. Unremarkable CT scan appearance noted the appendix. Status post cholecystectomy. Hepatomegaly. There are coarse calcifications within the pancreas which may be related to chronic pancreatitis. Discharge Plan Discharge Clinical Impression: Left flank pain Urinary tract infection Qualifiers: Urinary tract infection type: acute cystitis Hematuria presence: with hematuria Qualified Code(s): N30.01 - Acute cystitis with hematuria Patient Disposition: Home Condition: Stable Instructions: Antibiotic Form, Urinary Tract Infection in Women (ED), Flank Pain (ED) Additional Instructions: Take antibiotics as prescribed for urinary tract infection. Stay well hydrated. Recommend Zofran as needed for further nausea. Continue Tylenol/ibuprofen as needed for pain. Follow-up with your primary care doctor for further evaluation and urine culture results. Return to the ED if you experience worsening or severe pain, persistent fevers, unable to urinate, unable to keep down food or drink, or any other symptoms of concern. Patient Language: Spanish Prescriptions: New cephalexin 500 mg capsule 500 mg PO Q6H 7 Days Qty: 28 0RF ondansetron 4 mg tablet,disintegrating 4 mg PO Q8H PRN (Reason: nausea and vomiting) Qty: 15 0RF Follow-up/Referrals: PHYSICIAN,[employer]TA[employer] SALES BEAUTY ADVISOR [Primary Care Provider, Internal Medicine] Remington Bella MD [Physician, Family Practice] Referral Note: PRIMARY CARE Time of Disposition: 22:29
[2025-02-18] MEDS: cefTRIAXone 1 GM in SODIUM CHLORIDE 0.9% IV 50 ML 100 ML IVPB (20:56)
[2025-02-18 20:57] VITALS: PULSE 77; RESP 18; TEMP 36.7; O2SAT 99
[2025-02-18 22:36] VITALS: BP 139/73; PULSE 62; RESP 18; O2SAT 99
== END 2025-02-18 22:36 | disposition home or self-care (01) ==
PROVIDERS: Emergency Medicine; Student in an Organized Health Care Education/Training Program; Emergency Provider Physician Assistant
DX: N30.01 Acute cystitis with hematuria (principal); R10.9 Unspecified abdominal pain
CPT/HCPCS: 36415; 74176; 80053; 81001; 81025; 82948; 85025; 87086; 96361; 96365; 96375; 99284; J0696; J2270; J2405; J7030